=== PATIENT | male | born 1975 | race Caucasian/White ===

== ENCOUNTER 2022-02-06 14:06 | Outpatient (CLI) | payer OTHER, SELFPAY ==
--- OUTSIDE RECORDS SUMMARY | 2022-02-06 14:10 | XMS_ITS | Encounter Summary ---
:1975 Author Organization [facility] Address [address] [place] [address] Care Team Providers Name Role Phone Bethany Rahman MD Primary Care Provider Reason for Visit Reason Comments Med Refill Encounter Details Date Type Department Care Team Description 12/21/2020 Refill Viola Bethany Rahman MD [facility] [address] [facility] 20 [address] [facility] 20 [place], [place] [address] [place], [place] [phone] (Wo rk) Social History Tobacco Use Types Packs/Day Years Used Date Former Smoker Smokeless Tobacco: Never Used Alcohol Use Standard Drinks/Week Comments Yes 0 (1 standard drink = 0.6 oz pure alcoho l) 1-2 times per month Alcohol Habits Answer Date Recorded How often do you have a drink containing alcohol? Not asked How many drinks containing alcohol do you have on a Not aske d typical day when you are drinking? How often do you have six or more drinks on one Not asked occasion? 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
--- OUTSIDE RECORDS SUMMARY | 2022-02-06 14:10 | XMS_ITS | Encounter Summary ---
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 documented in this encounter Results SARS Coronavirus 2 RNA detection, v (04/12/2021 8:03 AM DIP DYER) [facility] Method Time Signature SARS Covid Nasopharyngeal 04/12/2021 [facility] specimen 10:40 PM LABORATORIES source DIP DYER SARS CoV2 Undetected Undetected 04/12/2021 [facility] RNA 10:40 PM LABORATORIES DIP DYER Comment: SARS-CoV-2 RNA absent. This result does not rule out COVID-19 in the patient, as the sensitiv ity of the test depends on the timing of the specimen co llection and the quality of the specimen. Result should b e correlated with patient's history and clinical presentat ion. Method - 04/12/2021 10:40 PM DIP DYER [facility] Comment: DOMINIK- This PCR test uses the dominik SARS -CoV-2 assay ([employer] and is perform ed on the dominik [employer]0 System. It has received Emergency U se Authorization (EUA) by the U.S. Food and Drug Administ ration. Performance characteristics were verified by [facility] inic in a manner consistent with CLIA requirements. Fact sheets for this Emergency Use Autho rization (EUA) can be found at the following links: https://www.fda.gov/media/615382/downloa d for Healthcare Providers https://www.fda.gov/media/809556/downloa d for Patients Test Performed by: [facility] [address] [place] [address] Tax Manager Cpa: Zen Sanchez M.D. Ph. D.; CLIA# [id number] Specimen Anatomical Collection Method Collection Time Receive d Time (Source) Location / / Volume Laterality Swab 04/12/2021 8:03 AM 8:03 (Nasopharyngeal) DIP DYER AM DIP DYER Nancy Carrion DNP, FOREIGN EXCHANGE SERVICES MANAGER, PLATE KEEPER LAB MOLECULAR DIAGNO STICS ORDERABLES Performing Organization Address City/State/ZIP Code Phon e Number [facility] see result attachment for specific address documented in this encounter Visit Diagnoses Diagnosis Encounter for screening laboratory testi ng for COVID-19 virus documented in this encounter Additional Health Concerns Infection Onset Date Last Indicated Resolved Time COVID-19 Rule Out 04/12/2021 04/12/2021 04/12/2021 10: 41 PM DIP DYER documented as of this encounter Care Teams Internet E Commerce Specialist Relationship Specialty Start Date End Date Bethany Rahman MD PCP - General 10/29/[address] [place] [address] documented as of this encounter
--- OUTSIDE RECORDS SUMMARY | 2022-02-06 14:10 | XMS_ITS | Encounter Summary ---
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
--- OUTSIDE RECORDS SUMMARY | 2022-02-06 14:10 | XMS_ITS | Clinical Summary ---
:1975 Author Organization [facility] Address [address] [place] [address] Care Team Providers Name Role Phone Bethany Rahman MD Primary Care Provider Allergies Active Allergy Reactions Severity Noted Date Comments Epinephrine Anxiety, Palpitations 12/31/2018 Methylprednisolone Dizziness Tramadol Dizziness 06/19/2006 Medications Medication Sig Dispensed Refills Start Date End Date Status cyclobenzaprine Take 10 mg by mouth 2 times daily 0 01/05/2016 Active (FLEXERIL) 10 MG Take 1 tab by mouth two time s daily as needed for muscle spasms. tablet ibuprofen Take 800 mg by 0 Activ e (ADVIL,MOTRIN) 200 MG mouth every 6 tablet (six) hours if needed for mild pain Take with food. atorvastatin TAKE 1 TABLET BY 90 tablet 3 03/21/2021 Active (LIPITOR) 20 MG MOUTH EVERY NIGHT tabletIndications: FOR CHOLESTEROL Mixed hyperlipidemia DULoxetine (CYMBALTA) Take one a day 90 capsule 3 03/22/[address] for capsuleIndications: anxiety/depressio Depression, n/pain unspecified depression type lisinopril (ZESTRIL) one pill daily 90 tablet 3 03/22/2021 Active 30 MG for blood tabletIndications: pressure Essential hypertension gabapentin May take ONE 180 capsule 3 08/28/2021 Act ron (NEURONTIN) 300 MG capsule TWICE a capsuleIndications: day or as Neuropathy directed for neropathy Active Problems Problem Noted Date Bilateral carpal tunnel syndrome 03/22/2021 MILLY (obstructive sleep apnea) 03/14/2020 Mixed hyperlipidemia 03/14/2020 Preoperative cardiovascular examination 05/29/2019 Overview: 1. 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 Will recommend ECG monitoring during the procedure and immediately post procedure. 2. Anesthesia can call me if problems or questions arise concerning the surgery. 3. Patient to be seen back on an as-need ed basis and to be seen if he wishes with me in the [facility]. 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 Immunizations Name Administration Dates Next Due H1N1 All Forms 04/16/2009 Tdap 08/28/2021, 07/16/2011 Family History Medical History Relation Comments Heart attack Father Heart attack Paternal Grandfather Liver disease Paternal Grandmother Relation Status Comments Daughter Alive Father Maternal Grandfather Maternal Grandmother Alive Mother Alive Paternal Grandfather Paternal Grandmother Sister 1 Alive Sister 2 Alive Son Alive Social History Tobacco Use Types Packs/Day Years [...] at Date 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 Vital Signs Vital Sign Reading Time Taken Comments Blood Pressure 116/72 08/28/2021 2:15 PM CDT Pulse 92 08/28/2021 2:15 PM CDT Temperature 37.1 ??C (98.7 ??F) 08/28/2021 2:15 PM CDT Respiratory Rate 16 08/28/2021 2:15 PM CDT Oxygen Saturation 96% 08/28/2021 2:15 PM CDT Inhaled Oxygen Concentration - - Weight 111 kg (245 lb 6.4 oz) 08/28/2021 2:15 PM CDT Height 177.8 cm (5' 10) 08/28/2021 2:15 PM CDT Body Mass Index 35.21 08/28/2021 2:15 PM CDT Plan of Treatment Health Maintenance Due Date Last Done Comments CT Colonography 1975 Colonoscopy 1975 Colorectal Cancer Screening 1975 FIT-DNA 1975 Sigmoidoscopy 1975 iFOBT 1975 COVID-19 Vaccine (#1) 1975 HPV Vaccines Aged Out No longer eligib le based on patient's age to complete this topic Pneumococcal Vaccine: Pediatrics (0 Aged Out No longer eligible based on to 5 Years) and At-Risk Patients (6 patient's age to complete to 64 Years) this topic Insurance Payer Benefit Plan / Subscriber ID Effective Phone Address T ype Group Dates [facility] [id number] 2017-Prese [address] [place] [address] Care Teams Rn Clinical Documentation Relationship Specialty Start Date End Date Bethany Rahman MD PCP - General 10/29/[address] [place] [address]
--- OUTSIDE RECORDS SUMMARY | 2022-02-06 14:10 | XMS_ITS | Encounter Summary ---
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 Last Filed Vital Signs Vital Sign Reading Time Taken Comments Blood Pressure 124/86 03/22/2021 11:13 AM CASE PACKER Pulse 106 03/22/2021 11:13 AM CASE PACKER Temperature 36.4 ??C (97.6 ??F) 03/22/2021 11:13 AM CASE PACKER Respiratory Rate 16 03/22/2021 11:13 AM CASE PACKER Oxygen Saturation 96% 03/22/2021 11:13 AM CASE PACKER Inhaled Oxygen Concentration - - Weight 113 kg (250 lb) 03/22/2021 11:13 AM CASE PACKER Height 177.2 cm (5' 9.76) 03/22/2021 11:13 AM CASE PACKER Body Mass Index 36.11 03/22/2021 11:13 AM CASE PACKER documented in this encounter Progress Notes Bethany Rahman MD - 03/22/2021 11:20 AM CST Estab Patient Visit Subjective Patient ID: Fabiano Schwartz is a 46 y.o. male. HPI the patient is here today for couple different reasons. URINARY DRIBBLING the patient is our 46-year-old individual who does not excessively use caffeine oralcohol at all. He has no problems getting up at night to urinate at all. During the daytime he may be will go to sometimes 3 times during the day but nothing more than that. He has no problems starting his stream he can stop his stream controlled quite well however he is beginning to notice he is having a little dribbling afterwards however if he squeezes the head of the penis and has a little patience post urinating he is better than if he does not pay attention to it. I told him at this point in time there are no particular medications are probably help with that continue doing what he is doing if he really needs toeing get some urinary sanitary pads to use if this gets to be a little more significant. If it does increase her creates a little bit of a problem referral to urology can always be done. HEMORRHOIDS the patient's had a history of external hemorrhoids he says for 5+ years if not longer. He has had on 2 occasions where they will protrude not much bigger than the size of a pea or 2 but they can sometimes bleed when he wipes himself or gets a little blood on the tissue paper or his underwear. Otherwise no change of bowel patterns and no blood in the stool per se just blood on the tissue paper or from the hemorrhoids. Sometimes it drips a little bit more. We did discuss colon cancer and presentation he certainly seems like he has external hemorrhoids butwe did discuss potentially getting a colonoscopy next year if this problem continues or persist or if he has insurance will allow him to initiate screening colonoscopies by age 45. BACK PAIN he recently had some problems with developing back pain when he reached for a 4 pound object at work. He Is actually been evaluated via Workmen's Comp. his symptoms were of acute low back pain with radiation of numbness and tingling down both legs into his feet. He is improved at this time he is starting physical therapy and Workmen's Comp. will not let him get an MRI scan unless he undergoes PT or if symptoms get worse. However he has a Workmen's Comp. provider that will have to work through this time. He has never had back surgery previously. BILATERAL CARPAL TUNNEL the patient's been experiencing some numbness in both hands may be left a little greater than right. His hands will fall asleep at nighttime oftentimes will have to wake and shake them. He is not dropping objects he does not feel like he has any weakness during the daytime theyare usually pretty much okay but he can experience some numbness or tingling periodically. Review of Systems Objective Physical Exam he is alert he appears comfortable his vital signs show the following Blood pressure 124/86 pulse 106 regular rate and rhythm temp 97.6 weight 250 pounds his BMI is 36.1 O2 sats 96% room air at rest He can turn his head left right up and down roll his shoulders through full range of motion without any particular problems or issues got full functional movement of the elbow wrist and fingers. However he does have a positive Phalen sign and a minimally positive Tinel's sign on the left wrist. Assessment/Plan Diagnoses and all orders for this visit: Depression, unspecified depression type - DULoxetine (CYMBALTA) [address] capsule; Take one a day for anxiety/depression/pain Neuropathy - gabapentin (NEURONTIN) 300 MG capsule; May take ONE capsule at night for pain/neuropathy or as directed Essential hypertension - lisinopril (ZESTRIL) 30 MG tablet; one pill daily for blood pressure BILATERAL CARPEL TUNNEL Urinary dribbling And the plan at this time is we recommend bilateral cock-up splints for his hands he will since he is going get those from a sports store. Would use them every night. If his carpal tunnel symptoms get worse he will let us know. His back will be taken care of by his Workmen's Comp. provider He has urinary dribbling he will just can keep in touch with us and let us know if is getting worse. 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
--- OUTSIDE RECORDS SUMMARY | 2022-02-06 14:10 | XMS_ITS | Encounter Summary ---
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 Patient instructed to remain home until: ??? Notified of results AND If symptomatic: ??? No fever for at least 24 hours (one full day without fever without the use of fever reducers AND ??? Other symptoms have improved Patient instructed that if they want to be seen by a provider for their symptoms, they can request atelehealth visit when calling to schedule. CLE ASSEMBLER documented in this encounter Plan of Treatment Not on filedocumented as of this encounter Results SARS Coronavirus 2 RNA detection, v (04/12/2021 8:03 AM VEHICLE ASSEMBLER) [facility] Method Time Signature SARS Covid Nasopharyngeal 04/12/2021 [facility] specimen 10:40 PM LABORATORIES source VEHICLE ASSEMBLER SARS CoV2 Undetected Undetected 04/12/2021 [facility] RNA 10:40 PM LABORATORIES VEHICLE ASSEMBLER Comment: SARS-CoV-2 RNA absent. This result does not rule out COVID-19 in the patient, as the sensitiv ity of the test depends on the timing of the specimen co llection and the quality of the specimen. Result should b e correlated with patient's history and clinical presentat ion. Method - 04/12/2021 10:40 PM VEHICLE ASSEMBLER [facility] Comment: DOMINIK- This PCR test uses the dominik SARS -CoV-2 assay ([employer].), and is perform ed on the dominik 6800 System. It has received Emergency U se Authorization (EUA) by the U.S. Food and Drug Administ ration. Performance characteristics were verified by [facility] inic in a manner consistent with CLIA requirements. Fact sheets for this Emergency Use Autho rization (EUA) can be found at the following links: https://www.fda.gov/media/434452/downloa d for Healthcare Providers https://www.fda.gov/media/035772/downloa d for Patients Test Performed by: [facility] [address] [place] [address] 44 Card Assembler: Zen Sanchez M.D. Ph. D.; CLIA# [id number] Specimen Anatomical Collection Method Collection Time Receive d Time (Source) Location / / Volume Laterality Swab 04/12/2021 8:03 AM 8:03 (Nasopharyngeal) VEHICLE ASSEMBLER AM VEHICLE ASSEMBLER Nancy Carrion DNP, PRECIPITATOR, CORRECTION OFFICER HEAD LAB MOLECULAR DIAGNO STICS ORDERABLES Performing Organization Address City/State/ZIP Code Phon e Number [facility] see result attachment for specific address documented in this encounter Visit Diagnoses Diagnosis Encounter for screening laboratory testi ng for COVID-19 virus - Primary documented in this encounter Care Teams Quality Control Industrial Engineer Relationship Specialty Start Date End Date Bethany Rahman MD PCP - General 10/29/[address] [place] [address] documented as of this encounter
--- OUTSIDE RECORDS SUMMARY | 2022-02-06 14:10 | XMS_ITS | Encounter Summary ---
:1975 Author Organization [facility] Address [address] [place] [address] Care Team Providers Name Role Phone Bethany Rahamn MD Primary Care Provider Reason for Visit Reason Comments Follow-up Discuss medication for neuro evan, lump on arm since Saturday-painful Encounter Details Date Type Department Care Team Description 08/28/2021 Office Visit Bethany Cline Neuropathy (Primary Dx); [address] MD Derrick Primary hypertension [place], [place] [address]269 [facility] 20 [place] [address] Social History Tobacco Use Types Packs/Day Years [...] at Date Recorded 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 male. HPI the patient is here today for review and treatment primarily of his chronic neuropathy. NEUROPATHY the patient has been having issues with bilateral numbness a little tingling that is relatively symmetric for several years. He is actually gotten by quite well with just a 300 mg dose of gabapentin at night. However more recently he feels that the some of this neuropathy has gotten a little bit more significant and he like to go up on the dose. It should also be noted he has some history of bilateral carpal tunnel seeming to be doing better orimproved and controlled with cock-up splints at night. Again overall his neuropathy is reasonably stable we are not going to investigate any further but wewill increase his treatments at this time and if this does not help or we have further issues further evaluation with referral to neurology could be considered. Some of his neuropathy might be related to his back issues. The neuropathy is primarily and some numbness little tingling of both feet more forefoot area than elsewhere but some going a little bit further than that. HYPERTENSION APPROXIMATELY 9 months or so ago we did increase his lisinopril from 20 mg to 30 mg. Hehas had no side effects to this increased dose and his blood pressure is much better controlled. WORKMEN'S COMP. BACK ISSUES the patient has a Workmen's Comp. issue with his lower back that he has been going through a different provider through his place of work for a period he has had an MRI scanthat is showed some bulging of the disc at the L4 level facet hypertrophy arthritic changes. Workmen's Comp. made him go through physical therapy conservative management for this and now he will be having a surgical procedure to cauterize his nerves. That will be coming up. I do not have anything todo with this as it is a work comp issue at this time. IMMUNIZATIONS he is up-to-date with his COVID-vaccine and we did update his tetanus status today. Review of Systems Objective Physical Exam he is alert he appears comfortable his vital signs show the following Blood pressure 116/72 pulse is 92 regular rate and rhythm temp is 98.7 his current weight is 245 pounds his BMI is 35.2 O2 sats 94% room air. Assessment/Plan Diagnoses and all orders for this visit: Neuropathy - gabapentin (NEURONTIN) 300 MG capsule; May take ONE capsule TWICE a day or as directed for neropathy Primary hypertension Other orders - Tdap vaccine greater than or equal to 7yo IM The overall assessment is as stated above and the plan at this time is increase his gabapentin to 300 mg twice a day recheck in roughly 6 months time when he will be due next for his general physical evaluation and laboratory testing. Consult time was 25 minutes greater than 90% of the time was spent in consultation regarding his ability issues he has neuropathy and upcoming workman comp procedure as well as review of his medications. documented in this encounter Plan of Treatment Not on filedocumented as of this encounter Visit Diagnoses Diagnosis Neuropathy - Primary Mononeuritis of unspecified site Primary hypertension Unspecified essential hypertension documented in this encounter Care Teams Analysis Consultant Relationship Specialty Start Date End Date Bethany Rahman MD PCP - General 10/29/[address] [place] [address] documented as of this encounter
--- OUTSIDE RECORDS SUMMARY | 2022-02-06 14:10 | XMS_ITS | Encounter Summary ---
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
--- OUTSIDE RECORDS SUMMARY | 2022-02-06 14:10 | XMS_ITS | Encounter Summary ---
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 DULoxetine (CYMBALTA) [address] capsule [Pharmacy Med Name: DULOXETINE DR 60MG CAPSULES] 90 capsule 3 Sig: TAKE 1 CAPSULE BY MOUTH EVERY DAY FOR ANXIETY OR DEPRESSION OR PAIN ??? atorvastatin (LIPITOR) 20 MG tablet [Pharmacy Med Name: ATORVASTATIN 20MG TABLETS] 90 tablet 1 Sig: TAKE 1 TABLET BY MOUTH EVERY NIGHT FOR CHOLESTEROL Labs: Component Latest Ref Rng & Units 07/25/2020 Cholesterol 0 - 199 mg/dL 167 Triglycerides 0 - 149 mg/dL 237 (H) HDL 40 - 250 mg/dL 35 (L) LDL Calculated 0 - 99 mg/dL 85 Fasting? No Vitals: BP Readings from Last 2 Encounters: 09/19/20 110/82 09/09/20 110/78 Please advise pharmacy on request. Thank you! RMATION WRITER documented in this encounter Plan of Treatment Not on filedocumented as of this encounter Visit Diagnoses Diagnosis Depression, unspecified depression type Mixed hyperlipidemia documented in this encounter Care Teams Psychology Lecturer Relationship Specialty Start Date End Date Bethany Rahman MD PCP - General 10/29/[address] [place] [address] documented as of this encounter
--- OUTSIDE RECORDS SUMMARY | 2022-02-06 14:10 | XMS_ITS | Encounter Summary ---
:1975 Author Organization [facility] Address [address] [place] [address] Care Team Providers Name Role Phone Unavailable Primary Care Provider Unavailable Reason for Visit Reason Comments Back Pain Encounter Details Date Type Department Care Team Description 01/05/2016 Hospital Encounter Do Domingo, Acute bilateral low Care MD back pain without [address] [facility] sciatica ([address] [place] Dx) [place] [address] [phone] Social History Tobacco Use Types Packs/Day Years Used Date Smoking Tobacco: Never Sex Assigned at Date Recorded Not on file documented as of this encounter Last Filed Vital Signs Vital Sign Reading Time Taken Comments Blood Pressure 125/90 01/05/2016 2:13 PM CDT Pulse 104 01/05/2016 2:13 PM CDT Temperature 36.7 ??C (98 ??F) 01/05/2016 2:13 PM CDT Respiratory Rate 17 01/05/2016 2:13 PM CDT Oxygen Saturation 98% 01/05/2016 2:13 PM CDT Inhaled Oxygen Concentration - - Weight - - Height - - Body Mass Index - - documented in this encounter Discharge Instructions Discharge InstructionsDo Youngblood - 01/05/2016 3:43 PM CDT Images from the original note were not included. Action Plan for Recovering from Low Back Pain Follow this action plan to achieve your goals for back pain recovery. Call 911 or go to the Emergency Center ?? Fever greater than 100.4??F (38??C) with back pain ?? Unable to urinate ?? Uncontrolled bowel movements ?? New weakness in both legs Call your doctor to discuss ?? Back pain that does not go away within 6 weeks or continues to worsen ?? Weight loss for no known reason ?? New weakness in 1 leg ?? Numbness that does not improve Phase 1 -- What to do for the 1st 2 weeks to reduce back pain ?Daily physical activity can prevent future back problems. ?? If you were not doing regular physical activity before your back pain started, aim to start walking for at least 30 minutes a day. ?? Spend at least 30 minutes daily in your usual exercise routine. If you usually exercise for more than 60 minutes a day, aim to exercise for 50 percent of that time. ?Visit www.nlm.nih.gov/medlineplus/backpain.html to learn more about back pain. ?Use any of the following medicines as recommended: ?? Nonsteroidal anti-imflammatory drugs (NSAIDs), such as ibuprofen (Motrin, Advil) or naproxen (Aleve) ?? Acetaminophen (Tylenol) ?? Other prescription medication as prescribed ?Use heat and consider ice ?? Take a hot bath (no greater than 100??F or 38??C) or place a heating pad on your lower back for 20 minutes 3 to 4 times a day. ?? Use of ice or cold packs for 20 minutes 3 to 4 times a day is optional. ?Move to Phase 2 when you no longer feel back pain 20 to 30 minutes after your daily physicalactivity. ?If your pain does not improve in 2 weeks, call either [facility] ([phone]), [facility] ([phone]) or [facility] ([phone]) toschedule an appointment. Phase 2 -- What to do after 2 weeks to reduce your back pain ?Daily physical activity. ?? If you were not doing regular physical activity before your back pain started, aim to start walking for at least 30 minutes a day. ?? Spend at least 45 to 60 minutes daily in your usual exercise routine. If you usually exercise formore than 60 minutes a day, aim to exercise for 75 to 100 percent of that time. ?Visit www.nlm.nih.gov/medlineplus/backpain.html to learn more about back pain. ?Use epcl-eil-tuzvihc acetaminophen (Tylenol) or ibuprofen (Motrin, Advil) as recommended. ?Use heat and consider ice ?? Take a hot bath (no greater than 100??F or 38??C) or place a heating pad on your lower back for 20 minutes 3 to 4 times a day. ?? Use of ice or cold packs for 20 minutes 3 to 4 times a day is optional. ?If you are still experiencing back pain after 6 weeks and have not called either [facility] ([phone]), [facility] ([phone]) or [facility] ([phone]), call now to schedule an appointment. [id number] (09/2013) documented in this encounter Medications at Time of Discharge Medication Sig Dispensed Refills Start Date End Date cyclobenzaprine (FLEXERIL) Take 1 Tab by mouth 20 Tab 0 01/05/2016 10 MG tablet two times daily as needed for Muscle Spasms. DULoxetine (CYMBALTA) 20 MG Take 20 mg by mouth 0 capsule daily. HYDROcodone-acetaminophen Take 1-2 Tabs by 20 Tab 0 12/23 (NORCO) 5-325 MG tablet mouth every 6 hours as needed for Pain. documented as of this encounter ED Notes Do Youngblood - 01/05/2016 3:46 PM CDT [facility] SUBJECTIVE: Fabiano Schwartz is a 40 y.o. male with history of known DJD of the low back who presents to urgent care for evaluation of acute back pain. He is in this area fore a judaism [place]. Was bending forward to lift up a heavy crate and immediately had pain in his bilateral low back. Denies weakness, numbness, saddle anesthesia, incontinence, fever, injury, trauma, or fall. No history of spine surgery. Has tried nothing OTC, just came here immediately. Past medical history: anxiety disorder NOS, WPW Medications: Cymbalta Allergies: NKDA Social: nonsmoker OBJECTIVE: BP 125/90 mmHg Pulse 104 Temp(Src) 36.7 ??C (98 ??F) (Oral) Resp 17 SpO2 98% GEN: NAD HEENT: NC/AT, EOMI, sclera white RESP: nonlabored MS: limited ROM with forward flexion and extension as well as lateral bending and rotational movement of back, +perispinous muscle tenderness bilateral low back, no SI joint tenderness, no midline tenderness, negative straight leg raise, BLE strength 5/5, DTR symmetric Skin: warm/dry, no rash, capillary refill <2sec ASSESSMENT AND PLAN: 1. Lumbar back strain Rx for Flexeril at bedtime and small amount [place] for pain during the day. Also recommended Aleve bid with food. Recommended heat and topical capsicin OTC. Handout on back stretches provided. If has acute worsening of symptoms will return for repeat evaluation. Otherwise, f/u with PCP in 1-2 weeks. Ifnot improved may consider PT and/or imaging if indicated. Patient is in agreement and understanding of the plan. Do Youngblood MD documented in this encounter Plan of Treatment Not on filedocumented as of this encounter Visit Diagnoses Diagnosis Acute bilateral low back pain without sc iatica - Primary Triage Assessment Note - Tessa Rodríguez RN - 01/05/2016 2:11 PM CDT Back pain started an hour ago, hard to walk, 10/01 documented in this encounter
--- OUTSIDE RECORDS SUMMARY | 2022-02-06 14:11 | XMS_ITS | Encounter Summary ---
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
--- OUTSIDE RECORDS SUMMARY | 2022-02-06 14:11 | XMS_ITS | Encounter Summary ---
:1975 Author Organization [facility] Address [address] [place] [address] Care Team Providers Name Role Phone Bethany Rahman MD Primary Care Provider Reason for Visit Reason Comments Hypertension Encounter Details Date Type Department Care Team Description 07/25/2020 Office Visit Bethany Cline Essential hypertension (Prim marcell Dx); [address] [facility] [address] MD Derrick Mixed hyperlipidemia [place], [place] [address] [facility] [address] [place] [address] [place] [address] Social History Tobacco Use Types Packs/Day Years [...] at Date 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 Last Filed Vital Signs Vital Sign Reading Time Taken Comments Blood Pressure 139/72 07/25/2020 4:15 PM CDT Pulse 92 07/25/2020 4:15 PM CDT Temperature 35.9 ??C (96.6 ??F) 07/25/2020 4:11 PM CDT Respiratory Rate 14 07/25/2020 4:11 PM CDT Oxygen Saturation 95% 07/25/2020 4:11 PM CDT Inhaled Oxygen Concentration - - Weight 113 kg (249 lb) 07/25/2020 4:11 PM CDT Height 177.2 cm (5' 9.76) 07/25/2020 4:11 PM CDT Body Mass Index 35.97 07/25/2020 4:11 PM CDT documented in this encounter Progress Notes Bethany Rahman MD - 07/25/2020 4:20 PM CDT Estab Patient Visit Subjective Patient ID: Fabiano Schwartz is a 45 y.o. male. HPI the patient is here today for review of blood pressure and to get an updated fasting lipid profile on him. Just in brief the patient was in the office the end of February for a preop physical prior to tonsillectomy done down at [facility]. The tonsillectomy procedure went well though it did takehim about 2 weeks to fully recover. He still feels a little sore when he really opens his mouth likethere may be a little scar tissue of sorts but overall he is quite pleased with having had his tonsillectomy he feels that he is sleeping better there is not as much discomfort coming from the tonsillar areas as previous. It should also be noted that approximately 6 years ago he did undergo a sleep study in the hospital at [facility]. It was borderline if I recall we did not start him on CPAP at that time and since that time he feels he is down maybe 15 pounds. That plus his recent surgical procedure to alleviate some of the tonsillar obstruction and the fact he is sleeping better we will hold off on doing any further sleep evaluation at least for now. He comes in because his blood pressure was elevated preoperatively we asked him to come back for another blood pressure check and to see how he is doing. Review of Systems Objective Physical Exam he is alert he appears comfortable his vital signs show a blood pressure 120/100 initially and on recheck it was 139/72 his pulse is 112 temp 96.6 current weight is 250 pounds his BMI is 36 O2 sat 95% at rest. Cardiac is regular rate and rhythm His lungs are clear without wheeze rales or rhonchi Extremities with no particular edema Patient has been fasting for 4+ hours we have not checked a cholesterol in the last year and a half since we started him on Lipitor as such we will get that today. Assessment/Plan Diagnoses and all orders for this visit: Essential hypertension - lisinopril (ZESTRIL) 30 MG tablet; one pill daily for blood pressure Mixed hyperlipidemia - Lipid panel; Future The overall assessment is essential hypertension currently on medication lisinopril 20 mg daily weregoing to increase that to 30 mg daily Get a lipid panel and make appropriate adjustments in medication as indicated. documented in this encounter Plan of Treatment Not on filedocumented as of this encounter Results (ABNORMAL) Lipid panel (07/25/2020 4:33 PM CDT) athologist Signature Cholesterol 167 0 - 199 07/26/2020 [facility] mg/dL 2:06 PM [facility] Comment: Recommended by National Cholesterol Education Program (ATP III) -------- Cholesterol Ranges -------- <200 ?Desirable 200-239 ? Borderline high >=240 ? High Triglycerides 237 (H) 0 - 149 mg/dL 07/26/2020 2:06 PM [facility] Comment: -------- TRIG Ranges -------- <150 ?Normal 150-199 ? Borderline high 200-499 ? High >=500 ? Very high HDL 35 (L) 40 - 250 mg/dL 07/26/2020 2:06 PM [facility] Comment: -------- HDL Ranges -------- <40 ?Low 40-59 ?Normal >=60 ? Optimal LDL Calculated 85 0 - 99 mg/dL 07/26/2020 2:06 PM [facility] Comment: -------- LDL Ranges -------- <100 ? Optimal 100-129 ?Near optimal/above op timal 130-159 ?Borderline high 160-189 ?High >=190 ?Very high Fasting? No 07/25/2020 4:[address] [facility] Comment: Last ate at noon. Provider ok with non f asting. Specimen Anatomical Collection Method Collection Time Receive d Time (Source) Location / / Volume Laterality Blood 07/25/2020 4:33 PM CDT 12:39 PM CDT Bethany Rahman MD LAB BLOOD ORDERABLES Performing Organization Address City/State/ZIP Code Phon e Number [facility] [address] [place] [address] documented in this encounter Visit Diagnoses Diagnosis Essential hypertension - Primary Unspecified essential hypertension Mixed hyperlipidemia documented in this encounter Care Teams Wallpaper Hanger Relationship Specialty Start Date End Date Bethany Rahman MD PCP - General 10/29/[address] [place] [address] documented as of this encounter
--- OUTSIDE RECORDS SUMMARY | 2022-02-06 14:11 | XMS_ITS | Encounter Summary ---
:[address] 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 DOS: 03/21/20 Tonsillectomy. Pt rates pain 10/01. Last doseof tylenol & ibuprofen 0200. Drinking plenty of fluids. Would like a refill on pain medications to get him through the next few days. Prefers to have tablets as he is swallowing tablets ok now. Please send to [facility] in [place]. DIALYSIS PATIENT CARE SPECIALIST documented in this encounter Plan of Treatment Not on filedocumented as of this encounter Visit Diagnoses Not on filedocumented in this encounter Care Teams Gate Clerk Relationship Specialty Start Date End Date Bethany Rahman MD PCP - General 10/29/[address] [place] [address] documented as of this encounter
--- OUTSIDE RECORDS SUMMARY | 2022-02-06 14:11 | XMS_ITS | Encounter Summary ---
:[address] 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 male. Chief Complaint Patient presents with ??? Return to work COVID note HPI Patient tested positive for COVID on 08/27/2020. Patient had symptoms started two days prior to this. His initial symptoms were headache, body aches, cough, runny nose. All of his symptoms have been improving. He does have persistent loss of smell and mild cough but that is also improving. He needs a letter to return to work and brought paper work. He does not plan on getting the Covid vaccine. The following portions of the patient's chart were reviewed in this encounter and updated as appropriate: Tobacco Allergies Meds Problems Med Hx Surg Hx Fam Hx ROS ROS done as noted in HPI Objective Visit Vitals BP 110/78 (BP Location: Left arm, Patient Position: Sitting, BP Cuff Size: Adult long) Pulse 110 Temp 36.1 ??C (97 ??F) (Temporal) Resp 18 Ht 1.772 m (5' 9.76) Wt 113 kg (249 lb) SpO2 96% BMI 35.97 kg/m?? Smoking Status Former Smoker BSA 2.36 m?? Physical Exam GEN: well appearing, no acute distress, vital signs reviewed CHEST: Lungs CTA karen CV: RRR no murmurs Assessment/Plan Diagnosis Plan 1. COVID-19 Patient cleared to return to work and form filled out. He meets criteria to return to work after covid (at least 1 day (24 hours) have passed since recovery, defined as resolution of fever without the use of fever-reducing medications and improvement in respiratory symptoms (e.g., cough, shortness of b reath); AND, at least 10 days have passed since symptoms first appeared. Return if symptoms worsen or fail to improve. Note created using voice dictation software. documented in this encounter Plan of Treatment Not on filedocumented as of this encounter Visit Diagnoses Diagnosis COVID-19 - Primary documented in this encounter Care Teams Timber Girdler Relationship Specialty Start Date End Date Bethany Rahman MD PCP - General 10/29/[address] [place] [address] documented as of this encounter
--- OUTSIDE RECORDS SUMMARY | 2022-02-06 14:11 | XMS_ITS | Encounter Summary ---
:1975 Author Organization [facility] Address [address] [place] [address] Care Team Providers Name Role Phone Bethany Rahman MD Primary Care Provider Reason for Visit Reason Comments Med Refill Encounter Details Date Type Department Care Team Description 12/28/2019 Refill [place] Bethany Rahman, Mixed hyperlipidemia; [address] [facility] Essential hypertension [place], [place] [address] [phone] [place] [address] (Wo rk) Social History Tobacco Use Types Packs/Day Years Used Date Former Smoker Smokeless Tobacco: Never Used Alcohol Use Standard Drinks/Week Comments Yes 0 (1 standard drink = 0.6 oz pure alcoho l) 3-4 times per year Alcohol Habits Answer Date Recorded How often do you have a drink containing alcohol? Not asked How many drinks containing alcohol do you have on a Not aske d typical day when you are drinking? How often do you have six or more drinks on one Not asked occasion? 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 Telephone Encounter - Sandrita Hamilton MA - 12/28/2019 8:14 AM CDT Last visit in provider department: 06/03/2019- pre-op Last visit requested medication was discussed: 11/28/2018 Upcoming appointment with provider: None Last Rx: 01/23/2019- LISINOPRIL 20MG-90 with 3 refills ATORVASTATIN 20MG- 90 with 3 refills Requested Prescriptions Pending Prescriptions Disp Refills ??? atorvastatin (LIPITOR) 20 MG tablet [Pharmacy Med Name: ATORVASTATIN 20MG TABLETS] 90 tablet 3 Sig: TAKE 1/2 TABLET BY MOUTH AT NIGHT FOR 10 DAYS THEN 1 TABLET BY MOUTH EVERY NIGHT THEREAFTER FOR CHOLESTEROL ??? lisinopril (ZESTRIL) 20 MG tablet [Pharmacy Med Name: LISINOPRIL 20MG TABLETS] 90 tablet 3 Sig: TAKE 1/2 TABLET BY MOUTH EVERY DAY FOR 10 DAYS THEN 1 TABLET BY MOUTH EVERY DAY Labs: Component Latest Ref Rng & Units 06/03/2019 Sodium 135 - 145 mmol/L 142 Potassium 3.5 - 5.1 mmol/L 3.9 Chloride 98 - 107 mmol/L 102 CO2 22 - 31 mmol/L 31 Creatinine 0.6 - 1.4 mg/dL 0.9 BUN 5 - 25 mg/dL 11 Glucose 70 - 100 mg/dL 96 Calcium, Total,S 8.4 - 10.2 mg/dL 9.4 Fasting? Yes Lipid panel is outdated Vitals: BP Readings from Last 2 Encounters: 06/03/19 128/82 05/29/19 127/84 Patient is due for an appointment. Advise your PSR/Nurse if you want them to assist patient with scheduling. Thank you! documented in this encounter Plan of Treatment Not on filedocumented as of this encounter Visit Diagnoses Diagnosis Mixed hyperlipidemia Essential hypertension Unspecified essential hypertension documented in this encounter Care Teams Resist Coater Developer Relationship Specialty Start Date End Date Bethany Rahman MD PCP - General 10/29/[address] [place] [address] documented as of this encounter
--- OUTSIDE RECORDS SUMMARY | 2022-02-06 14:11 | XMS_ITS | Encounter Summary ---
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 documented in this encounter Results (ABNORMAL) Lipid panel (07/25/2020 4:33 PM CDT) athologist Signature Cholesterol 167 0 - 199 07/26/2020 [facility] mg/dL 2:06 PM CDT [facility] Comment: Recommended by National Cholesterol Education Program (ATP III) -------- Cholesterol Ranges -------- <200 ?Desirable 200-239 ? Borderline high >=240 ? High Triglycerides 237 (H) 0 - 149 mg/dL 07/26/2020 2:06 PM CDT [facility] Comment: -------- TRIG Ranges -------- <150 ?Normal 150-199 ? Borderline high 200-499 ? High >=500 ? Very high HDL 35 (L) 40 - 250 mg/dL 07/26/2020 2:06 PM CDT [facility] Comment: -------- HDL Ranges -------- <40 ?Low 40-59 ?Normal >=60 ? Optimal LDL Calculated 85 0 - 99 mg/dL 07/26/2020 2:06 PM CDT [facility] Comment: -------- LDL Ranges -------- <100 ? Optimal 100-129 ?Near optimal/above op timal 130-159 ?Borderline high 160-189 ?High >=190 ?Very high Fasting? No 07/25/2020 4:38 PM CDT [facility] Comment: Last ate at noon. Provider ok with non f asting. Specimen Anatomical Collection Method Collection Time Receive d Time (Source) Location / / Volume Laterality Blood 07/25/2020 4:33 PM 1 CDT 12:39 PM CDT D. Derrick Rahman MD LAB BLOOD ORDERABLES Performing Organization Address City/State/ZIP Code Phon e Number [facility] [address] [place] [address] documented in this encounter Visit Diagnoses Diagnosis Mixed hyperlipidemia documented in this encounter Care Teams Addiction Treatment Counselor Relationship Specialty Start Date End Date Bethany Rahman MD PCP - General 10/29/[address] [place] [address] documented as of this encounter
--- OUTSIDE RECORDS SUMMARY | 2022-02-06 14:11 | XMS_ITS | Encounter Summary ---
:[address] 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
--- OUTSIDE RECORDS SUMMARY | 2022-02-06 14:11 | XMS_ITS | Encounter Summary ---
:1975 Author Organization [facility] Address [address] [place] [address] Care Team Providers Name Role Phone Bethany Rahman MD Primary Care Provider Reason for Visit Auth/Cert Specialty Diagnoses / Procedures Referred By Contact Refer red To Contact Diagnoses Hypertrophy of tonsils alone Hypertrophy of tonsils alone [J35.1] Procedures TONSILLECTOMY Referral ID Status Reason Start Date Expiration Date Visits Requ ested Visits Authorized [id number] 1 Encounter Details Date Type Department Care Team Description 03/21/2020 Anesthesia Event [facility] Operating Bigg Muse, Adrianne STEIN [address] [facility] [address] [place] [address] [place] [address] (Wo rk) Anesthesia Record Procedure Summary Procedure Name Responsible Anesthesia Start Anesthesia Stop Anesthesiologist Time Time TONSILLECTOMY Josué Muse MD 03/21/20 1613 03/21/20 17 08 (Bilateral ) Events Date Time Event Comment 03/21/2020 1509 1613 An Start 1613 An Start Data 1614 In Room 1617 An Induction The patient was reevaluated immediately before moderate or deep sedation use and before anesthesia induction. 1621 An Intubation 1625 Anesthesia Ready 1629 Proc Start 1645 Proc Fin 1654 An Extubation 1700 an stop data 1702 Out of Room 1707 Handoff to RN I completed my h andoff to the receiving nurse during which we: 1. Magen ntified the patient 2. Identified the responsible provider 3. Reviewed the pertinent medical history 4. Discussed the surgical course 5. Reviewed intra-o p anesthesia management and issues during anesthesi a 6. Set expectations for post-procedure p eriod 7. Allowed opportunity for questions and ac knowledgement of understanding. 170 An Stop Name Total fentaNYL (SUBLIMAZE) injection 150 mcg propofol (DIPRIVAN) injection 10 mg/mL 250 mg rocuronium 30 mg ondansetron 2 mg/mL 4 mg dexamethasone (DECADRON) injection 4 mg/mL 8 mg lidocaine injection 2% (5 ml) 40 mg esmolol (BREVIBLOC) injection 60 mg sugammadex (BRIDION) injection 400 mg lactated Ringer's infusion 1,200 mL Agents Name N2O % Minute Volume Sevoflurane FiO2 Inspired Sevoflurane Blood No blood administrations on file. Lines, Drains, and Airways Type Details Placement Removal Incision/Surgical Site 03/21/20; 163; N; Mouth; 03/21/20 1636 b y no dressing Hannah Patino RN Peripheral IV Placement Date: 03/21/20; 03/21/20 1421 by 03/21 1842 by Placement Time: 142; Krista Snyder, Miranda Sparks, Catheter Size: 20 G; RN RN Orientation: Left; Location: Wrist; Site Prep: Chlorhexidine ; Inserted by: DEE Arellano; Insertion Attempts: 1; Patient Tolerance: Tolerated well; Removal Date: 03/21/20; Removal Time: 1841; Removal Reason: Per order ETT Placement Date: 03/21/20; 03/21/201626 by 03/21 1654 by Placement Time: 1626 Miranda Johnson APRN, Miranda Johnson, (created via procedure LISA LEE APRN documentation); Mask Ventilation: 1; Technique: Video laryngoscopy; Type: ETT - single; Single Lumen Tube Size: 7.5 mm; Cuffed: Yes; Laryngoscope: Cleo; Blade Size: 3; Grade View: Grade I; Insertion Attempts: 1; Placement Verification: Auscultation; Removal Date: 03/21/20; Removal Time: 1653 documented in this encounter Social History Tobacco Use Types Packs/Day Years [...] at Date 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 OR Notes Anesthesia Postprocedure Evaluation - John Cunha MD - 03/21/2020 9:01 PM ELECTRICAL SYSTEMS DESIGNER Patient: Fabiano Schwartz Procedure Summary Date: 03/21/20 Room / Location: [facility] [place] [address] [place] [address] Operating Room Anesthesia Start: 1613 Anesthesia Stop: 170 Procedure: TONSILLECTOMY (Bilateral ) Diagnosis: Hypertrophy of tonsils alone (Hypertrophy of tonsils alone [J35.1]) Surgeon: Scott Lott MD Responsible Provider: Josué Muse MD Anesthesia Type: general ASA Status: 3 Anesthesia Type: general Last vitals Vitals Value Taken Time BP 144/91 03/21/20 1837 Temp 37.7 ??C (99.9 ??F) 03/21/20 1738 Pulse 91 03/21/20 1837 Resp 20 03/21/20 1738 SpO2 97 % 03/21/20 1837 There were no known complications for this encounter. Anesthesia Post Evaluation Patient location during evaluation: bedside (210) Patient participation: complete - patient participated Level of consciousness: awake and alert Pain management: adequate Airway patency: patent Cardiovascular status: acceptable Respiratory status: acceptable, nonlabored ventilation, spontaneous ventilation and room air Hydration status: acceptable Comments: Did well No anesthetic complications Nausea and vomiting control satisfactory TRICAL SYSTEMS DESIGNER Anesthesia Procedure Notes - Miranda Johnson APRN, CRNA - 03/21/2020 4:26 PM ELECTRICAL SYSTEMS DESIGNER Associated Order(s): Airway Airway Urgency: elective General Information and Staff Patient location during procedure: OR Resident/HUMANITIES INSTRUCTOR: Miranda Johnson APRN, HUMANITIES INSTRUCTOR Performed: resident/HUMANITIES INSTRUCTOR Indications and Patient Condition Indications for airway management: anesthesia Spontaneous Ventilation: absent Sedation level: deep Preoxygenated: yes Mask difficulty assessment: 1 - vent by mask Final Airway Details Final airway type: endotracheal airway Successful airway: ETT Cuffed: yes Successful intubation technique: video laryngoscopy Blade: Cleo Blade size: #3 ETT size (mm): 7.5 Cormack-Lehane Classification: grade I - full view of glottis Placement verified by: chest auscultation Cuff volume (mL): 8 Measured from: gums Number of attempts at approach: 1 TRICAL SYSTEMS DESIGNER Anesthesia Preprocedure Evaluation - Josué Muse MD - 03/21/2020 1:58 PM CST Images from the original note were not included. Anesthesia Adult ROS/MED Evaluation Patient denies history of problems with anesthesia. Patient denies family history of problems with anesthesia. 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 Please see cardiology evaluation 05/29/2019 with documentation of reassuring electrophysiologic cardiac testing around the time of this diagnosis and no concerns earlier this year per Dr. Stovall's evaluation. Recurrent tonsillitis MILLY - per patient, mild-restless sleep, states CPAP was not recommended (tonsillectomy recommended) Clinical information reviewed: Allergies Meds Visit Vitals BP (!) 165/95 (BP Location: Left arm, Patient Position: Sitting) Pulse (!) 120 Temp 37.6 ??C (99.7 ??F) (Temporal) Resp 16 Ht 1.772 m (5' 9.75) Wt 111 kg (244 lb 7.8 oz) SpO2 94% BMI 35.33 kg/m?? Smoking Status Former Smoker BSA 2.34 m?? Physical Exam Airway Mallampati: III TM distance: >3 FB Comments: MP3-2 Cardiovascular Rhythm: regular Rate: abnormal Dental Pulmonary Breath sounds clear to auscultation Abdominal Comments: Not examined Anesthesia Plan ASA 3 general (Risks discussed include, not limited to: Postoperative nausea and vomiting Trouble with heart or lungs, stroke, TIA Patient states the anesthetic consent form has been reviewed. We also discussed anesthetic risks andall questions were answered. The patient then signed the electronic consent. ) intravenous induction Anesthetic plan and risks discussed with patient. Plan discussed with HUMANITIES INSTRUCTOR. Initial evaluation reviewed, no significant interval change. Re-evaluation prior to induction complete. TRICAL SYSTEMS DESIGNER documented in this encounter Plan of Treatment Not on filedocumented as of this encounter Procedures Procedure Name Priority Date/Time Associated Comments Diagnosis DE AN ELECTIVE Routine 03/21/2020 4:26 PM Results for this ENDOTRACHEAL AIRWAY ELECTRICAL SYSTEMS DESIGNER procedur e are in the results section. documented in this encounter Results DE AN ELECTIVE ENDOTRACHEAL AIRWAY (03/21/2020 4:26 PM ELECTRICAL SYSTEMS DESIGNER) Narrative Miranda Johnson APRN, CRNA - 03/21/2020 4:26 PM ELECTRICAL SYSTEMS DESIGNER Miranda Johnson APRN, CRNA ? 03/21/2020 ??4:27 PM Airway Urgency: elective General Information and Staff Patient location during procedure: OR Resident/HUMANITIES INSTRUCTOR: Miranda Johnson APRN, CRNA Performed: resident/HUMANITIES INSTRUCTOR Indications and Patient Condition Indications for airway management: anest hesia Spontaneous Ventilation: absent Sedation level: deep Preoxygenated: yes Mask difficulty assessment: 1 - vent by mask Final Airway Details Final airway type: endotracheal airway Successful airway: ETT Cuffed: yes Successful intubation technique: video l aryngoscopy Blade: Cleo Blade size: #3 ETT size (mm): 7.5 Cormack-Lehane Classification: grade I - full view of glottis Placement verified by: chest auscultatio n Cuff volume (mL): 8 Measured from: gumava Number of attempts at approach: 1 Josué Muse MD ANESTHESIA ORDERABLES documented in this encounter Visit Diagnoses Not on filedocumented in this encounter Administered Medications Inactive Administered Medications - up to 3 most recent administrations Medication Order MAR Action Action Date Dose Rate Site dexamethasone (DECADRON) injection Given 03/21/2020 4:21 PM ELECTRICAL SYSTEMS DESIGNER 8 mg Intravenous, As needed, Starting on Sat03/21/20 at 1621, Anesthesia Intraprocedure esmolol (BREVIBLOC) injection Given 03/21/2020 4:37 PM ELECTRICAL SYSTEMS DESIGNER 20 mg Intravenous, As needed, Starting on Sat03/21/20 at 1622, Anesthesia Intraprocedure Given 03/21/2020 4:22 PM ELECTRICAL SYSTEMS DESIGNER 40 mg fentaNYL (SUBLIMAZE) injection Given 03/21/2020 4:33 PM ELECTRICAL SYSTEMS DESIGNER 50 mcg Intravenous, As needed, Starting on Sat03/21/20 at 1618, Anesthesia Intraprocedure Given 03/21/2020 4:29 PM ELECTRICAL SYSTEMS DESIGNER 50 mcg Given 03/21/2020 4:18 PM ELECTRICAL SYSTEMS DESIGNER 50 mcg lactated Ringer's infusion New Bag 03/21/2020 4:41 PM ELECTRICAL SYSTEMS DESIGNER 75 mL/hr, Intravenous, Continuous, Starting on Sat03/21/20 at 1430, For 5 days, Preprocedure Continued from Pre 03/21/2020 4:14 PM ELECTRICAL SYSTEMS DESIGNER New Bag 03/21/2020 2:22 PM ELECTRICAL SYSTEMS DESIGNER 75 mL/hr 75 mL/hr Lidocaine HCl (Cardiac) PF injection Given 03/21/2020 4:18 PM ELECTRICAL SYSTEMS DESIGNER 40 mg Intravenous, As needed, Starting on Sat03/21/20 at 1618, Anesthesia Intraprocedure ondansetron (ZOFRAN) injection Given 03/21/2020 4:31 PM ELECTRICAL SYSTEMS DESIGNER 4 mg Intravenous, As needed, Starting on Sat03/21/20 at 1631, Anesthesia Intraprocedure propofol (DIPRIVAN) injection Given 03/21/2020 4:38 PM ELECTRICAL SYSTEMS DESIGNER 50 mg Intravenous, As needed, Starting on Sat03/21/20 at 1618, Anesthesia Intraprocedure Given 03/21/2020 4:18 PM ELECTRICAL SYSTEMS DESIGNER 200 mg rocuronium (ZEMURON) injection Given 03/21/2020 4:18 PM ELECTRICAL SYSTEMS DESIGNER 30 mg Intravenous, As needed, Starting on Sat03/21/20 at 1618, Anesthesia Intraprocedure sugammadex (BRIDION) 500 MG/5ML injectio n Given 03/21/2020 4:43 PM ELECTRICAL SYSTEMS DESIGNER 400 mg As needed, Starting on Sat03/21/20 at 1643, Anesthesia Intraprocedure documented in this encounter Care Teams [employer] Caretaker Relationship Specialty Start Date End Date Bethany Rahman MD PCP - General 10/29/[address] [place] [address] documented as of this encounter
--- OUTSIDE RECORDS SUMMARY | 2022-02-06 14:11 | XMS_ITS | Encounter Summary ---
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 TRUCK DRIVER Telephone Encounter - Bethany Rahman MD - 04/25/2020 4:47 PM CST Rx filled. TRUCK DRIVER Telephone Encounter - Elida Flynn RN - 04/25/2020 4:28 PM CST Please review request. TRUCK DRIVER Telephone Encounter - Paula Bañuelos - 04/25/2020 4:24 PM CST Patient is requesting a [facility] of Cymb[facility] [place]. You can reach him at [phone]. TRUCK DRIVER documented in this encounter Plan of Treatment Not on filedocumented as of this encounter Visit Diagnoses Diagnosis Depression, unspecified depression type documented in this encounter Care Teams Wreath And Garland Maker Relationship Specialty Start Date End Date Bethany Rahman MD PCP - General 10/29/[address] [place] [address] documented as of this encounter
--- OUTSIDE RECORDS SUMMARY | 2022-02-06 14:11 | XMS_ITS | Encounter Summary ---
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 Dexamethasone script already at pharmacy, pain med script and needs to be resent. ING SPECIALIST documented in this encounter Plan of Treatment Not on filedocumented as of this encounter Visit Diagnoses Diagnosis Hypertrophy of tonsils alone - Primary documented in this encounter Additional Health Concerns Infection Onset Date Last Indicated Resolved Time COVID-19 Rule Out 04/12/2021 04/12/2021 04/12/2021 10: 41 PM TOOLING SPECIALIST documented as of this encounter Care Teams Vp Software Support Relationship Specialty Start Date End Date Bethany Rahman MD PCP - General 10/29/[address] [place] [address] documented as of this encounter
--- OUTSIDE RECORDS SUMMARY | 2022-02-06 14:11 | XMS_ITS | Encounter Summary ---
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 Order placed. We understand your concern regarding COVID-19 (Coronavirus). The recommendation is to wash your hands often with soap and water for at least 20 seconds, if soap and water are unavailable, please use alcohol-based hand inspector fabric. Cover your coughs and sneezes with a tissue or your sleeve, not in your hands. Avoid touching your eyes, nose, and mouth as well as coming in contact with people who are sick. If you are ill, please stay home from school, work, and activities. If you are ill and you need to go out into public, please wear a mask, if you have one available. Telephone Encounter - Do Danita - 12/30/2019 1:08 PM CDT Pt called asking if he can get the Covid antibody test. Please call Pt at [phone] to advise. documented in this encounter Plan of Treatment Not on filedocumented as of this encounter Results [id number] IgG (12/30/2019 3:03 PM CDT) [facility] Method Time Signature Anti-SARS NON-REACTI Non-Reacti 12/31/2019 [facility] CoV-2 IgG VE ve 2:38 PM CDT [facility] Comment: No SARS-CoV-2 IgG antibodies detected. Non-reactive results may occur in serum collected too soon following infection or in immunosuppressed patient s. This test should not be used to exclude active/recent COVID-19 infection . The results from this or any other diagn ostic test should only be interpreted in conjunction with clinical findings, and the results from other laboratory tests and evaluations. Heterophilic antibodies in serum or plas ma samples may cause interference in immunoassays. ??Exposure to animal antig ens, either in the environment or as part of treatment or imaging procedures, may have circulating anti-animal antibodies present. These antibodies may interfere with the assay reagents to produce unreliable results. ??Results which are inconsistent with clinical observations indicate the need for addit ional testing. Testing was performed using [employer] Lswn-YFCT-ZoD-2 IgG Reagent Pac k assay which has received Emergency Use Authorization (EUA) by the U.S. Food and Drug Administration. Fact sheets for this Emergency Use Autho rization can be found at the following links: For Healthcare Providers: https://www.fda.gov/media/277073/downlo ad For Patients: https://www.fda.gov/media/481965/downlo ad Specimen Anatomical Collection Method Collection Time Receive d Time (Source) Location / / Volume Laterality Blood (Blood, 12/30/2019 3:03 PM 12/31/19 20 Venous) CDT 12:49 PM CDT Bethany Rahman MD LAB BLOOD ORDERABLES Performing Organization Address City/State/ZIP Code Phon e Number [facility] [address] [place] [id number] documented in this encounter Visit Diagnoses Diagnosis Immunity status testing - Primary Antibody response examination documented in this encounter Care Teams General Magistrate Relationship Specialty Start Date End Date Bethany Rahman MD PCP - General 10/29/[address] [place] [address] documented as of this encounter
--- OUTSIDE RECORDS SUMMARY | 2022-02-06 14:11 | XMS_ITS | Encounter Summary ---
:1975 Author Organization [facility] Address [address] [place] [address] Care Team Providers Name Role Phone Bethany Rahman MD Primary Care Provider Reason for Visit Reason Comments Pre-op Exam DOS: 03/21/20, [facility] needs lab s Encounter Details Date Type Department Care Team Description 03/14/2020 Consult Bethany Cline, Preop examination (Primary D x); [address] [facility] MD Neuropathy [place], [place] [address] [phone] [place] [address] Social History Tobacco Use Types Packs/Day Years [...] at Date Recorded 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 as of this encounter Last Filed Vital Signs Vital Sign Reading Time Taken Comments Blood Pressure 122/88 03/14/2020 2:57 PM CELL MANAGER Pulse 100 03/14/2020 2:57 PM CELL MANAGER Temperature 36.2 ??C (97.1 ??F) 03/14/2020 2:57 PM CELL MANAGER Respiratory Rate 16 03/14/2020 2:57 PM CELL MANAGER Oxygen Saturation 96% 03/14/2020 2:57 PM CELL MANAGER Inhaled Oxygen Concentration - - Weight 115 kg (254 lb) 03/14/2020 2:57 PM CELL MANAGER Height 179.3 cm (5' 10.59) 03/14/2020 2:57 PM CELL MANAGER Body Mass Index 35.84 03/14/2020 2:57 PM CELL MANAGER documented in this encounter Progress Notes Bethany Rahman MD - 03/14/2020 4:00 PM CST Estab - Pre-Op History and Physical Subjective Patient ID: Fabiano Schwartz is a 45 y.o. male. HPI the patient is here today for PREOPERATIVE EVALUTION prior to elective surgical procedure tonsillectomy that is to be done on March 21, 2020. The surgeon's name is Dr. Lott and the procedure will be done at [facility]. The pertinent history in regard to this procedure is that the patient has had significant issues with chronic recurrent tonsillar infections that has resulted in pain and discomfort as well has a encrypted tonsillar tissue. He had been previously scheduled for a tonsillectomy in May of this year butbecause of COVID-19 it was finally rescheduled at this time. He also has a history of a positive sleep apnea test but some of that may be due to the enlarged tonsils as such this surgical procedure maydecrease some of his symptoms such as snoring. 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 He has had a previous full evaluation from Dr. Sia Esquivel's engine repairer with an EKG a year ago showing normal sinus rhythm no evidence for Sihwl-Axplsumvs-Fxedq in his current EKG today showing normal sinus rhythm and no evidence for Vczej-Xyxqgnlqe-Qecfu. 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 FAMILY HISTORY his father when he was age 7 from acute myocardial infarction his father was a heavy smoker. His mother is still living about age 61 without health issues 2 sisters living and well IMMUNIZATIONS up-to-date with tetanus shot declines flu vaccination Review of Systems the patient's current review of systems is apparently negative for anything specific at this time No headaches visual change or hearing changes No fevers chills night sweats coughs or colds no shortness of breath or chest pains or palpitations No recent weight changes no swallowing difficulties no stomach upset no constipation no nausea no vomiting no diarrhea no constipation no blood in the stool No difficulty passing of urine no frequency of urination or nocturia No unusual aches and pains no lumps or bumps no fluid retention no skin lesions No history of problems with anesthesia No gait or balance problems Objective Physical Exam he is alert he appears comfortable his vital signs show the following Blood pressure 122/88 Pulse 100 regular rate and rhythm Temp 97.1 Weight 254 pounds O2 sats 96% room air BMI is 35.8 Ears are clear except for cerumen in the left ear Pupils equal reactive conjunctiva clear Throat tongue is moist large tongue tonsils enlarged and encrypted Neck no adenopathy no thyromegaly no carotid bruits or lymphadenopathy Lungs are clear without wheeze rales or rhonchi Cardiac is regular rate and rhythm without heart murmur Abdomen soft nontender no hepatosplenomegaly no masses no hernias appreciated Extremities have no edema Skin is intact Gait and balance are normal A CBC chemistry 8 panel were done and were normal EKG was done normal sinus rhythm no acute changes no findings no delta wave Assessment/Plan Diagnoses and all orders for this visit: Preop examination - Basic metabolic panel; Future - ECG 12 lead; Future Neuropathy - gabapentin (NEURONTIN) 300 MG capsule; May take ONE capsule at night for pain/neuropathy or as directed The overall assessment is preoperative evaluation prior to elective tonsillectomy procedure. Other medical history is recorded in the body of this chart The patient qualifies and is given CLEARANCE to have his surgical procedure done under general anesthesia. After he recovers from his tonsillectomy we will discuss with the patient referring to sleep medicine specialist for evaluation of possible sleep apnea. MANAGER documented in this encounter Plan of Treatment Not on filedocumented as of this encounter Procedures Procedure Name Priority Date/Time Associated Diagnosis Comme nts ECG 12-LEAD Routine 03/14/2020 4:25 PM Preop examination Resu lts for this CELL MANAGER procedure are i n the results section . documented in this encounter Results ECG 12 lead (03/14/2020 4:25 PM CELL MANAGER) Specimen (Source) Anatomical Collection Method Collection Time Re ceived Time Location / / Volume Laterality 03/14/2020 4:25 PM CELL MANAGER Narrative 03/14/2020 12:00 AM CELL MANAGER This result has an attachment that is no t available. Patient had an EKG done in clinic. Patie nt tolerated well. Paper copy handed to Dr. Rahman for review. Paper copy scanned. Bethany Rahman MD ECG ORDERABLES Basic metabolic panel (03/14/2020 4:07 PM CELL MANAGER) P athologist Signature Sodium 142 135 - 145 03/14/2020 [facility] [place] mmol/L 4:51 PM CELL MANAGER [place] Potassium 3.9 3.5 - 5.1 03/14/2020 [facility] [place] mmol/L 4:51 PM CELL MANAGER [place] Comment: . Chloride 101 98 - 107 mmol/L 03/14/2020 4:51 PM CELL MANAGER [facility] [place] Comment: . CO2 31 22 - 31 mmol/L 03/14/2020 4:51 PM CELL MANAGER [facility] Comment: . Creatinine 0.9 0.6 - 1.4 mg/dL 03/14/2020 4:51 PM CELL MANAGER [facility] [place] Comment: . BUN 12 5 - 25 mg/dL 03/14/2020 4:51 PM CELL MANAGER [facility] [place] Comment: . Glucose 95 70 - 100 mg/dL 03/14/2020 4:51 PM CELL MANAGER [facility] [place] Calcium, Total,S 9.3 8.4 - 10.2 mg/dL 03/14/2020 4:51 PM CELL MANAGER [facility] [place] Comment: . Fasting? No 03/14/2020 4:31 PM CELL MANAGER [facility] CAN NON [place] Comment: 1+ lipemic Specimen Anatomical Collection Method Collection Time Receive d Time (Source) Location / / Volume Laterality Blood 03/14/2020 4:07 PM 0 4:31 CELL MANAGER PM CELL MANAGER D. Derrick Rahman MD LAB BLOOD ORDERABLES Performing Organization Address City/State/ZIP Code Phon e Number [facility] [place] [address] [place] [address] documented in this encounter Visit Diagnoses Diagnosis Preop examination - Primary Unspecified pre-operative examination Neuropathy Mononeuritis of unspecified site documented in this encounter Care Teams Expedition Supervisor Relationship Specialty Start Date End Date Bethany Rahman MD PCP - General 10/29/[address] [place] [address] documented as of this encounter
--- OUTSIDE RECORDS SUMMARY | 2022-02-06 14:11 | XMS_ITS | Encounter Summary ---
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
--- OUTSIDE RECORDS SUMMARY | 2022-02-06 14:11 | XMS_ITS | Encounter Summary ---
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
--- OUTSIDE RECORDS SUMMARY | 2022-02-06 14:11 | XMS_ITS | Encounter Summary ---
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 atorvastatin (LIPITOR) 20 MG tablet [Pharmacy Med Name: ATORVASTATIN 20MG TABLETS] 90 tablet 1 Sig: TAKE 1 TABLET BY MOUTH EVERY NIGHT FOR CHOLESTEROL ??? lisinopril (ZESTRIL) 20 MG tablet [Pharmacy Med Name: LISINOPRIL 20MG TABLETS] 90 tablet 2 Sig: TAKE 1 TABLET BY MOUTH DAILY FOR BLOOD PRESSURE documented in this encounter Plan of Treatment Not on filedocumented as of this encounter Visit Diagnoses Diagnosis Mixed hyperlipidemia Essential hypertension Unspecified essential hypertension documented in this encounter Additional Health Concerns Infection Onset Date Last Indicated Resolved Time COVID-19 Rule Out 04/12/2021 04/12/2021 04/12/2021 10: 41 PM VENEER STAPLER documented as of this encounter Care Teams Refrigerating Engineer Relationship Specialty Start Date End Date Bethany Rahman MD PCP - General 10/29/[address] [place] [address] documented as of this encounter
--- OUTSIDE RECORDS SUMMARY | 2022-02-06 14:11 | XMS_ITS | Encounter Summary ---
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 documented as of this encounter Plan of Treatment Not on filedocumented as of this encounter Results CBC ([facility]) (12/30/2019 3:03 PM CDT) P athologist Signature WBC 7.7 3.5 - 10.5 12/30/2019 [facility] DONNE[place] K/uL 4:18 PM CDT FALLS RBC 5.16 4.30 - 5.70 12/30/2019 [facility] [place] M/uL 4:18 PM CDT FALL[place] Hemoglobin 15.6 13.5 - 17.5 12/30/2019 [facility] [place] g/dL 4:18 PM CDT [place]ALL[place] Hematocrit 46.8 38.0 - 50.0 12/30/2019 [facility] [place] % 4:18 PM CDT [place] Platelets 316 150 - 450 12/30/2019 [facility] [place] K/uL 4:18 PM CDT [place] MCV 90.7 81.2 - 95.1 12/30/2019 [facility] [place] fL 4:18 PM CDT [place] MCH 30.2 26.0 - 32.0 12/30/2019 [facility] [place] pg 4:18 PM CDT [place] MCHC 33.3 32.0 - 36.0 12/30/2019 [facility] [place] g/dL 4:18 PM CDT [place] RDW 13.1 11.8 - 15.6 12/30/2019 [facility] [place] % 4:18 PM CDT [place] Specimen Anatomical Collection Method Collection Time Receive d Time (Source) Location / / Volume Laterality Blood (Blood, 12/30/2019 3:03 PM 12/30/19 3:04 Venous) CDT PM CDT Scott Lott MD LAB BLOOD ORDERABLES Performing Organization Address City/State/ZIP Code Phon e Number [facility] [place] [address] [place] [address] documented in this encounter Visit Diagnoses Diagnosis Hypertrophy of tonsils alone - Primary documented in this encounter Care Teams Metal Cans Supervisor Relationship Specialty Start Date End Date Bethany Rahman MD PCP - General 10/29/[address] [place] [address] documented as of this encounter
--- OUTSIDE RECORDS SUMMARY | 2022-02-06 14:11 | XMS_ITS | Encounter Summary ---
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 Please place a case request. Pt had been scheduled for May 2019. Canceled due to covid. Preop nurses please please review the History of Ezio Parkinson White Syndrome. documented in this encounter Plan of Treatment Not on filedocumented as of this encounter Visit Diagnoses Not on filedocumented in this encounter Care Teams Silvering Department Supervisor Relationship Specialty Start Date End Date Bethany Rahman MD PCP - General 10/29/[address] [place] [address] documented as of this encounter
--- OUTSIDE RECORDS SUMMARY | 2022-02-06 14:11 | XMS_ITS | Encounter Summary ---
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 OMER SUPPORT TECHNICIAN documented in this encounter Plan of Treatment Not on filedocumented as of this encounter Visit Diagnoses Diagnosis Hypertrophy of tonsils alone - Primary documented in this encounter Care Teams Masticator Relationship Specialty Start Date End Date Bethany Rahman MD PCP - General 10/29/[address] [place] [address] documented as of this encounter
--- OUTSIDE RECORDS SUMMARY | 2022-02-06 14:11 | XMS_ITS | Encounter Summary ---
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 Telephone Encounter - Do Samayoa - 07/22/2020 4:43 PM CDT Pt returned call to clinic. Telephone Encounter - Dana Lr MA - 07/22/2020 3:35 PM CDT Registry Management Fabiano has been identified with gaps in care for the following registry/registries: Hypertension Registry BP Readings from Last 1 Encounters: 03/21/20 (!) 144/91 Health Maintenance Topics with due status: Overdue Topic Date Due COVID-19 Vaccine Never done Referrals: ??? None Plan: ??? Patient advised to schedule appointment with PCP LMTCB documented in this encounter Plan of Treatment Not on filedocumented as of this encounter Visit Diagnoses Not on filedocumented in this encounter Care Teams Carbon Paper Coating Supervisor Relationship Specialty Start Date End Date Bethany Rahman MD PCP - General 10/29/[address] [place] [address] documented as of this encounter
--- OUTSIDE RECORDS SUMMARY | 2022-02-06 14:11 | XMS_ITS | Encounter Summary ---
:[address] [facility] Address [address] [place] [address] Care Team Providers Name Role Phone Bethany Rahman MD Primary Care Provider Reason for Visit Auth/Cert Specialty Diagnoses / Procedures Referred By Contact Refer red To Contact Diagnoses Hypertrophy of tonsils alone Hypertrophy of tonsils alone [J35.1] Procedures TONSILLECTOMY Referral ID Status Reason Start Date Expiration Date Visits Requ ested Visits Authorized [id number] 1 1 Encounter Details Date Type Department Care Team Description 03/21/[address] [facility] Operati ng Room Scott Thurston MD TONSILLECTOMY [address] [place], [place] [id number] Surgery Details Date/Time Status Location OR Service Patient Class Case Case Trauma Class Type Case? 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 encounter Last Filed Vital Signs Vital Sign Reading Time Taken Comments Blood Pressure 165/95 03/21/2020 2:02 PM GRINDER AND PLATER Pulse 120 03/21/2020 2:03 PM GRINDER AND PLATER Temperature 37.6 ??C (99.7 ??F) 03/21/2020 2:02 PM GRINDER AND PLATER Respiratory Rate 16 03/21/2020 2:02 PM GRINDER AND PLATER Oxygen Saturation 94% 03/21/2020 2:03 PM GRINDER AND PLATER Inhaled Oxygen Concentration - - Weight 111 kg (244 lb 7.8 oz) 03/21/2020 2:02 PM GRINDER AND PLATER Height 177.2 cm (5' 9.75) 03/21/2020 2:02 PM GRINDER AND PLATER Body Mass Index 35.33 03/21/2020 2:02 PM GRINDER AND PLATER documented in this encounter Discharge Instructions Discharge InstructionsKrista Snyder RN - 03/21/2020 1:36 PM CST Tonsillectomy & Adenoidectomy Care After These instructions give you information on caring for yourself after your procedure. Your doctor mayalso give you more specific instructions. Call your doctor if you have any problems or questions after your procedure. [facility] at [phone] -- [facility] [place] Dept at [phone] -- [facility] E[place] Dept at [phone] HOME CARE ??? Obtain proper rest, keeping your head elevated at all times. You will feel worn out and tired for a while. ??? Drink enough fluids to keep your urine clear or pale yellow. ??? Only take medicine as told by your doctor. You may use Tylenol and Ibuprofen alternating. ??? Eat soft and cold foods, such as ice cream, frozen ice pops, water, juices, sherbet, jello. Avoid carbonated drinks, and citrus juices. Avoid crusted food for 7-10 days . ??? Do not use straws. ??? Avoid mouth washes and gargles. ??? Avoid people with colds and sore throats. ??? Gum chewing will help with early swallowing. ??? Return to work/school as directed. ??? No swimming. ??? Humidity in the room will increase comfort. Use an ice pack for the first 12-24 hours. This may help with discomfort and keep swelling down. ??? Avoid coughing, gargling, and clearing the throat. ??? Small children should be watched closely for the first 24 hours. ??? It is normal for your throat to look bad and your breath to have an unpleasant smell for awhile. GET HELP RIGHT AWAY IF: * You have bleeding from your nose or throat-- Streaks of blood in the saliva are normal. ??? You develop a rash. ??? You have trouble breathing. ??? You have increased bleeding, you throw up (vomit ), or you cough or spit up bright red blood. ??? You have a temperature of 101 persisting for more than 24 hours. MAKE SURE YOU: ??? Understand these instructions. ??? Will watch your condition. ??? Will get help right away if you are not doing well or get worse. Document Released: 04/13/2011 Document Revised: 02/28/2012 Document Reviewed: 04/13/2011 ExitCare?? Patient Information ??2011 [employer] DER AND PLATER documented in this encounter Medications at Time of Discharge Medication Sig Dispensed Refills Start Date End Date cyclobenzaprine Take 10 mg by mouth 2 times daily 0 01/05/2016 (FLEXERIL) 10 MG tablet Take 1 tab by mouth two time s daily as needed for muscle spasms. ibuprofen (ADVIL,MOTRIN) Take 800 mg by mouth 0 200 MG tablet every 6 (six) hours if needed for mild pain Take with food. acetaminophen-codeine Take 1 tablet by 12 tablet 0 03/28/19 21 07/25/2020 (TYLENOL/CODEINE #3) mouth every 6 (six) 300-30 MG per hours if needed for tabletIndications: severe pain Hypertrophy of tonsils alone acetaminophen-codeine Take 15 mL by mouth 300 mL 0 03/2107/25/2020 120-12 MG/5ML every 4 (four) hours suspensionIndications: if needed for Hypertrophy of tonsils moderate pain or alone severe pain for up to 20 doses atorvastatin (LIPITOR) one nightly for 90 tablet 2 12/28/19 20 09/19/2020 20 MG tabletIndications: cholesterol Mixed hyperlipidemia Cannabidiol 100 MG/ML Take 100 mg by mouth 0 11/201907/25/2020 solution dexamethasone (DECADRON) 4 tabs for 2 days 23 tablet 0 05/2307/25/2020 2 MG tabletIndications: prior to surgery; Hypertrophy of tonsils skip surgery day; 5 alone tabs post-op day 1, 4 day 2, 3 day 3, 2 day 4, 1 day 5 DULoxetine (CYMBALTA) 60 Take one a day for 90 capsule 3 08/201904/25/[address] anxiety/depression/p capsuleIndications: ain Depression, unspecified depression type gabapentin (NEURONTIN) May take ONE capsule 90 capsule 3 03/22/2021 300 MG at night for capsuleIndications: pain/neuropathy or Neuropathy as directed lisinopril (ZESTRIL) 20 one pill daily for 90 tablet 2 07/201907/25/2020 MG tabletIndications: blood pressure Essential hypertension documented as of this encounter OR Notes Op Note - Scott Thurston MD - 03/21/2020 4:29 PM CST Preop Diagnosis: Tonsillar hypertrophy Postop Diagnosis: same Procedure: Tonsillectomy Surgeon: Scott Thurston Anesthesia: General endotracheal Estimated blood loss 10 cc Complications none Findings: Very large cryptic tonsils, no significant adenoid tissue Brief history: Patient was taken to the operating room due to a history of severely enlarged cryptictonsils Description of procedure and findings: Patient was taken the operating room and placed in supine position. After general anesthesia was induced, patient was oral endotracheally intubated by the anesthesia service. The mouthgag was placed and opened. The palate was intact. Patient had large tonsils bilaterally that were cryptic. The mirror was used to examine the nasopharynx. No adenoid tissue was noted. The tonsil on the left side was grasped with the tonsil-seizing forceps and pulled medially. Electrocautery was used to remove the tonsil in its entirety along tonsillar capsule. The right side was then approached. Tonsil-seizing forceps were used on this side as well and again the tonsil was removed along its capsule with electrical cautery. The patient tolerated the procedurewell there were no complications. The mouth was copiously irrigated with saline at the conclusion ofthe procedure DER AND PLATER Brief Op Note - Scott Thurston MD - 03/21/2020 4:29 PM CST Date: 03/21/2020 Location: [facility] OR Name: Fabiano Schwartz, : 1975, Diagnosis Pre-op Diagnosis * Hypertrophy of tonsils alone [J35.1] Post-op Diagnosis * Hypertrophy of tonsils alone [J35.1] Preliminary CPT code(s): No CPT code documented in operative note Procedure(s): TONSILLECTOMY Surgeon(s) and Role: * Scott Thurston MD - Primary Procedure Summary Anesthesia: General ASA: III Estimated Blood Loss: Minimal Staff: Director Of Sports Performance: Hannah Patino RN Scrub Person: Laisha Denton Indications: Fabiano Schwartz is an 45 y.o. male who is having surgery for Hypertrophy of tonsils alone [J35.1]. Findings: Large cryptic tonsils Complications: None; patient tolerated the procedure well. Disposition: PACU - hemodynamically stable. Condition: stable Attending Attestation: I performed the procedure. Scott Thurston MD DER AND PLATER documented in this encounter Plan of Treatment Not on filedocumented as of this encounter Procedures Procedure Name Priority Date/Time Associated Diagnosis Comme nts PATHOLOGY Routine 03/21/2020 4:32 PM Results f or this GRINDER AND PLATER procedure are i n the results section. TONSILLECTOMY 03/21/2020 4:14 PM Hypertrophy of tonsil s GRINDER AND PLATER alone documented in this encounter Results Pathology (03/21/2020 4:32 PM GRINDER AND PLATER) Specimen (Source) Anatomical Collection Method Collection Time Re ceived Time Location / / Volume Laterality Tissue (Other) 03/21/2020 4:32 PM GRINDER AND PLATER Tissue (Other) 03/21/2020 4:33 PM GRINDER AND PLATER Narrative [facility] - 02/24 9:28 AM GRINDER AND PLATER ? [facility] ? [address] ?[place] [address] ? Patient: ?FABIANO SCHWARTZ ?Procedure: ? 03/21/2020 16:32 /Age/Sex: ??1975, 45 Y, M ?Received: ?03/22/2020 08:40 ? Accession #: ?? [id number] Billing: ?[id number] ? Patient Location: Discharged Ordered by: ?? SCOTT THURSTON MD ? Attending: ? SCOTT THURSTON MD ?S URGICAL PATHOLOGY FINAL REPORT COPY TO: RAFFAELE RAHMAN MD; SCOTT TERRELL MD SPECIMEN: (A) TONSIL(S), LEFT (B) TONSIL(S), RIGHT CLINICAL INFORMATION: Hypertrophy of tonsils alone. GROSS DESCRIPTION: 1) Designated for cassette A, received i n formalin labeled left tonsil is a patrick-pink rubbery ovoid soft tissue measu ring 3.5 x 1.7 x 1.0 cm. Field Operations Coordinator sections are submitted into cassette A1. 2) Designated for cassette B, received i n formalin labeled right tonsil is a patrick-pink ovoid soft tissue measuring 3.0 x 2.0 x 0.7 cm. Field Operations Coordinator sections are submitted into cassette B1. REJI ROYAL ([facility]) CM Patient's identification labels match on requisition form and bottles. DIAGNOSIS: A and B) Tonsil, left and right, bilater al tonsillectomy: -Benign tonsillar tissue with follicular lymphoid hyperplasia, chronic and acute inflammation. <Sign Out Signature> VICTORIANO BLAIR MD (Electronically Signed) Reported: ??03/23/2020 ??09:28 ? Page 1 of 1 Scott Thurston MD LAB PATHOLOGY ORDERABLES Performing Organization Address City/State/ZIP Code Phon e Number [facility] [address] [place] [address] documented in this encounter Visit Diagnoses Diagnosis Hypertrophy of tonsils alone documented in this encounter Administered Medications Inactive Administered Medications - up to 3 most recent administrations Medication Order MAR Action Action Date Dose Rate Site lactated Ringer's infusion New Bag 03/21/2020 4:41 PM GRINDER AND PLATER 75 mL/hr, Intravenous, Continuous, Starting on Sat03/21/20 at 1430, For 5 days, Preprocedure Continued from Pre 03/21/2020 4:14 PM GRINDER AND PLATER New Bag 03/21/2020 2:22 PM GRINDER AND PLATER 75 mL/hr 75 mL/hr midazolam (VERSED) injection 2 mg Given 03/21/2020 3:16 PM GRINDER AND PLATER 2 mg 2 mg, Intravenous, Once, On Sat03/21/20 at 1600, For 1 dose, Preprocedure, Ensure patient has been been by surgeon prior to administration documented in this encounter Active and Recently Administered Medications Times are shown in GRINDER AND PLATER. Scheduled Medication Order 03/19/2020 03/20/2020 03/21/2020 midazolam (VERSED) injection 2 mg (COMPLETED) 0779 (Given - Provider: Soco Carmichael RN) 2 mg, Intravenous, Once, 12/28/20 at 1600, For 1 dose, Preprocedure, Ensure patient has been been by surgeon prior to administration Continuous Medication Order 03/19/2020 03/20/2020 03/21/2020 lactated Ringer's infusion 1422 (New Bag - Provider: Krista Snyder RN)1614 (Continued from Pre - Provider: Miranda Johnson APRN, SOIL SURVEYOR)1641 (New Bag - Provider: Miranda Johnson APRN, JESUS)1708 (Anesthesia Volume Adjustment - Provider: Miranda Johnson APRN, JESUS) 75 mL/hr, Intravenous, at 75 mL/hr, Cont inuous, Starting 03/21/20 at 1430, For 5 days, Preprocedure PRN Medication Order 03/19/2020 03/20/2020 03/21/2020 acetaminophen (TYLENOL) suspension 640 mg 1726 ([facility] Hold - Provider: Automatic Transfer Provider - Reason: Patient not available)2053 ([facility] Unhold - Provider: Automatic Discharge Provider) 640 mg (rounded from 650 mg), Oral, Once as needed, mild pain, moderate pain, Starting 03/21/20 at 1647, For 1 dose acetaminophen (TYLENOL) tablet 650 mg 172 ([facility] Hold - Provider: Automatic Transfer Provider - Reason: Patient not available)2053 ([facility] Unhold - Provider: Automatic Discharge Provider) 650 mg, Oral, Once as needed, mild pain, moderate pain, Starting 03/21/20 at 1648, For 1 dose oxyCODONE (ROXICODONE) 5 MG/5ML solution 5 mg 172 ([facility] Hold - Provider: Automatic Transfer Provider - Reason: Patient not available)2053 ([facility] Unhold - Provider: Automatic Discharge Provider) 5 mg, Oral, Once as needed, moderate edin n, severe pain, Starting 03/21/20 at 1657, For 1 dose documented in this encounter Care Teams Cognos Bi Administrator Relationship Specialty Start Date End Date Bethany Rahman MD PCP - General 10/29/[address] [place] [address] documented as of this encounter
--- OUTSIDE RECORDS SUMMARY | 2022-02-06 14:11 | XMS_ITS | Encounter Summary ---
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 Information and instructions for surgery were reviewed with patient including NPO guidelines. Patient will have family drop him off and pick him up on the DOS. Patient has had anesthesia in the past and has tolerated it well. Patient hasWPW, had an unsuccessful cardioversion, so is now managing it. Patient has [facility] [place], available for review in Legacy Chart. Patient was instructed to take medication on the DOS as directed by PCP. Patient denied questions. Preop nursing card was given and patient was encouraged to call should questions or concerns arise. Due to COVID, patient was told to self isolate 5 days prior to surgery. COVID testing id to be arranged by patient to happen at [facility], results should be available in Care Everywhere once completed. Patient told to complete this on at the latest. Patient is aware that visitors are not allowed except in pediatric or special needs patients. Information explained that we would ask for family phone number to call with up dates. Patient will wear mask on DOS. MOLDING MACHINE OPERATOR documented in this encounter Plan of Treatment Not on filedocumented as of this encounter Visit Diagnoses Not on filedocumented in this encounter Care Teams Employment Service Specialist Relationship Specialty Start Date End Date Bethany Rahman MD PCP - General 10/29/[address] [place] [address] documented as of this encounter
--- OUTSIDE RECORDS SUMMARY | 2022-02-06 14:11 | XMS_ITS | Encounter Summary ---
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 CBC Routine 12/30/2019 3:03 PM Hypertrophy of Results for this CDT tonsils alone procedure are in the results section. documented in this encounter Results CBC ([facility]) (12/30/2019 3:03 PM CDT) P athologist Signature WBC 7.7 3.5 - 10.5 12/30/2019 [facility] [place] K/uL 4:18 PM CDT [place] RBC 5.16 4.30 - 5.70 12/30/2019 [facility] [place] M/uL 4:18 PM CDT [place] Hemoglobin 15.6 13.5 - 17.5 12/30/2019 [facility] [place] g/dL 4:18 PM CDT [place] Hematocrit 46.8 38.0 - 50.0 12/30/2019 [facility] [place] % 4:18 PM CDT [place] Platelets 316 150 - 450 12/30/2019 [facility] [place] K/uL 4:18 PM CDT [place] MCV 90.7 81.2 - 95.1 12/30/2019 [facility] [place] fL 4:18 PM CDT [place] MCH 30.2 26.0 - 32.0 12/30/2019 [facility] [place] pg 4:18 PM CDT [place] MCHC 33.3 32.0 - 36.0 12/30/2019 [facility] [place] g/dL 4:18 PM CDT [place] RDW 13.1 11.8 - 15.6 12/30/2019 [facility] [place] % 4:18 PM CDT [place] Specimen Anatomical Collection Method Collection Time Receive d Time (Source) Location / / Volume Laterality Blood (Blood, 12/30/2019 3:03 PM 12/30/19 20 3:04 Venous) CDT PM CDT Scott Lott MD LAB BLOOD ORDERABLES Performing Organization Address City/State/ZIP Code Phon e Number [facility] [place] [address] [place] [address] [id number] IgG (12/30/2019 3:03 PM CDT) [facility] Method Time Signature Anti-SARS NON-REACTI Non-Reacti 12/31/2019 [place] CoV-2 IgG VE ve 2:38 PM CDT [...] addit ional testing. Testing was performed using [employer] Ajjj-KUMK-KxV-2 IgG Reagent Pac k assay which has received Emergency Use Authorization (EUA) by the U.S. Food and Drug Administration. Fact sheets for this Emergency Use Autho rization can be found at the following links: For Healthcare Providers: https://www.fda.gov/media/545202/downlo ad For Patients: https://www.fda.gov/media/627314/downlo ad Specimen Anatomical Collection Method Collection Time Receive d Time (Source) Location / / Volume Laterality Blood (Blood, 12/30/2019 3:03 PM 12/31/19 20 Venous) CDT 12:49 PM CDT Bethany Rahman MD LAB BLOOD ORDERABLES Performing Organization Address City/State/ZIP Code Phon e Number [facility] [address] [place] [address] documented in this encounter Visit Diagnoses Diagnosis Immunity status testing Antibody response examination Hypertrophy of tonsils alone documented in this encounter Care Teams Tube Puller Relationship Specialty Start Date End Date Bethany Rahman MD PCP - General 10/29/[address] [place] [address] documented as of this encounter
--- OUTSIDE RECORDS SUMMARY | 2022-02-06 14:11 | XMS_ITS | Encounter Summary ---
:[address] [facility] Address [address] [place] [address] Care Team Providers Name Role Phone eBthany Rahman MD Primary Care Provider Reason for Visit Auth/Cert Specialty Diagnoses / Procedures Referred By Contact Refer red To Contact Diagnoses Hypertrophy of tonsils alone Hypertrophy of tonsils alone [J35.1] Procedures TONSILLECTOMY Referral ID Status Reason Start Date Expiration Date Visits Requ ested Visits Authorized [id number] 1 1 Encounter Details Date Type Department Care Team Description 03/21/2020 Hospital Encounter [facility] OrenScott MD Medical/Surgical [address] [place] [address] Social History Tobacco Use Types [...] at Date Recorded 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 documented as of this encounter Last Filed Vital Signs Vital Sign Reading Time Taken Comments Blood Pressure 144/91 03/21/2020 6:37 PM ASSISTANT PURCHASING MANAGER Pulse 91 03/21/2020 6:37 PM ASSISTANT PURCHASING MANAGER Temperature 37.7 ??C (99.9 ??F) 03/21/2020 5:38 PM ASSISTANT PURCHASING MANAGER Respiratory Rate 20 03/21/2020 5:38 PM ASSISTANT PURCHASING MANAGER Oxygen Saturation 97% 03/21/2020 6:37 PM ASSISTANT PURCHASING MANAGER Inhaled Oxygen Concentration - - Weight 111 kg (244 lb 7.8 oz) 03/21/2020 2:02 PM ASSISTANT PURCHASING MANAGER Height 177.2 cm (5' 9.75) 03/21/2020 2:02 PM ASSISTANT PURCHASING MANAGER Body Mass Index 35.33 03/21/2020 2:02 PM ASSISTANT PURCHASING MANAGER documented in this encounter Discharge Instructions Discharge InstructionsKrista Snyder RN - 03/21/2020 1:36 PM CST Tonsillectomy & Adenoidectomy Care After These instructions give you information on caring for yourself after your procedure. Your doctor barb give you more specific instructions. Call your doctor if you have any problems or questions after your procedure. [facility] Outpatient Surgical Services at [phone] -- [facility] ER Dept at [phone] -- [facility] ENT Dept at [phone] HOME CARE ??? Obtain proper rest, keeping [...] Document Reviewed: 04/13/2011 ExitCare?? Patient Information ??2011 [employer]. STANT PURCHASING MANAGER documented in this encounter Medications at Time [...] MG/ML Take 100 mg by mouth 0 08/2407/25/2020 solution dexamethasone (DECADRON) 4 tabs for 2 [...] with saline at the conclusion ofthe procedure STANT PURCHASING MANAGER Brief Op Note - Scott Thurston MD - 03/21/2020 4:29 PM CST Date: 03/21/2020 Location: [facility] OR Name: Fabiano Schwartz, : 1975, Diagnosis Pre-op Diagnosis * Hypertrophy of tonsils alone [J35.1] Post-op Diagnosis * Hypertrophy of tonsils alone [J35.1] Preliminary CPT code(s): No CPT code documented in operative note Procedure(s): TONSILLECTOMY Surgeon(s) and Role: * Scott Thurston MD - Primary Procedure Summary Anesthesia: General ASA: III Estimated Blood Loss: Minimal Staff: Policy Advisor: Hannah Patino RN Scrub Person: Laisha Denton Indications: Fabiano Schwartz is an 45 y.o. male who is having surgery for Hypertrophy of tonsils alone [J35.1]. Findings: Large cryptic tonsils Complications: None; patient tolerated the procedure well. Disposition: PACU - hemodynamically stable. Condition: stable Attending Attestation: I performed the procedure. Scott Thurston MD STANT PURCHASING MANAGER documented in this encounter Plan of Treatment Not on filedocumented as of this encounter Procedures Procedure Name Priority Date/Time Associated Diagnosis Comme nts PATHOLOGY Routine 03/21/2020 4:32 PM Results f or this ASSISTANT PURCHASING MANAGER procedure are i n the results section. TONSILLECTOMY 03/21/2020 4:14 PM Hypertrophy of tonsil s ASSISTANT PURCHASING MANAGER alone documented in this encounter Results Pathology (03/21/2020 4:32 PM ASSISTANT PURCHASING MANAGER) Specimen (Source) Anatomical Collection Method Collection Time Re ceived Time Location / / Volume Laterality Tissue (Other) 03/21/2020 4:32 PM ASSISTANT PURCHASING MANAGER Tissue (Other) 03/21/2020 4:33 PM ASSISTANT PURCHASING MANAGER Narrative [facility] - 02/24 9:28 AM ASSISTANT PURCHASING MANAGER ? [facility] ? [address] ?[place] [address] ? Patient: ?FABIANO SCHWARTZ ?Procedure: ? 03/21/2020 16:32 /Age/Sex: ??1975, 45 Y, M ?Received: ?03/22/2020 08:40 ? Accession #: ?? [id number] Billing: ?[id number] ? Patient Location: Discharged Ordered by: ?? [...] ring 3.5 x 1.7 x 1.0 cm. Quality Review Specialist sections are submitted into cassette A1. 2) Designated for cassette B, received i n formalin labeled right tonsil is a patrick-pink ovoid soft tissue measuring 3.0 x 2.0 x 0.7 cm. Quality Review Specialist sections are submitted into cassette B1. REJI ROYAL (ASCP) CM Patient's identification labels match on requisition form and bottles. DIAGNOSIS: A and B) Tonsil, left and right, bilater al tonsillectomy: -Benign tonsillar tissue with follicular lymphoid hyperplasia, chronic and acute inflammation. <Sign Out Dr. [place]> VICTORIANO BLAIR MD (Electronically Signed) Reported: ??03/23/2020 ??09:28 ? Page 1 of 1 Scott Thurston MD LAB PATHOLOGY ORDERABLES Performing Organization Address City/State/ZIP Code Phon e Number [facility] [address] [place] [address] documented in this encounter Visit Diagnoses Not on filedocumented in this encounter Administered Medications Inactive Administered Medications - up to 3 most recent administrations Medication Order MAR Action Action Date Dose Rate Site lactated Ringer's infusion New Bag 03/21/2020 4:41 PM ASSISTANT PURCHASING MANAGER 75 mL/hr, Intravenous, Continuous, Starting on Sat03/21/20 at 1430, For 5 days, Preprocedure Continued from Pre 03/21/2020 4:14 PM ASSISTANT PURCHASING MANAGER New Bag 03/21/2020 2:22 PM ASSISTANT PURCHASING MANAGER 75 mL/hr 75 mL/hr midazolam (VERSED) injection 2 mg Given 03/21/2020 3:16 PM ASSISTANT PURCHASING MANAGER 2 mg 2 mg, Intravenous, Once, On Sat03/21/20 at 1600, For 1 dose, Preprocedure, Ensure patient has been been by surgeon prior to administration documented in this encounter Active and Recently Administered Medications Times are shown in ASSISTANT PURCHASING MANAGER. Scheduled Medication Order 03/19/2020 03/20/2020 03/21/2020 midazolam (VERSED) injection 2 mg (COMPLETED) 1516 (Given - Provider: Soco Carmichael RN) 2 mg, Intravenous, Once, Sat03/21/20 at 1600, For 1 dose, Preprocedure, Ensure patient has been been by surgeon prior to administration Continuous Medication Order 03/19/2020 03/20/2020 03/21/2020 lactated Ringer's infusion 1422 (New Bag - Provider: Krista Snyder RN)1614 (Continued from Pre - Provider: Miranda Johnson APRN, ELECTRICAL ASSISTANT)1641 (New Bag - Provider: Miranda Johnson APRN, JESUS)1708 (Anesthesia Volume Adjustment - Provider: Miranda Johnson APRN, JESUS) 75 mL/hr, Intravenous, at 75 mL/hr, Cont inuous, Starting Sat03/21/20 at 1430, For 5 days, Preprocedure PRN Medication Order 03/19/2020 03/20/2020 03/21/2020 acetaminophen (TYLENOL) suspension 640 mg 1726 ([facility] Hold - Provider: Automatic Transfer Provider - Reason: Patient not available)2053 ([facility] Unhold - Provider: Automatic Discharge Provider) 640 mg (rounded from 650 mg), Oral, Once as needed, mild pain, moderate pain, Starting Sat03/21/20 at 1647, For 1 dose acetaminophen (TYLENOL) tablet 650 mg 1726 ([facility] Hold - Provider: Automatic Transfer Provider - Reason: Patient not available)2053 ([facility] Unhold - Provider: Automatic Discharge Provider) 650 mg, Oral, Once as needed, mild pain, moderate pain, Starting Sat03/21/20 at 1648, For 1 dose oxyCODONE (ROXICODONE) 5 MG/5ML solution 5 mg 1726 ([facility] Hold - Provider: Automatic Transfer Provider - Reason: Patient not available)2053 ([facility] Unhold - Provider: Automatic Discharge Provider) 5 mg, Oral, Once as needed, moderate edin n, severe pain, Starting Sat03/21/20 at 1657, For 1 dose documented in this encounter Care Teams Surety Bond Agent Relationship Specialty Start Date End Date Bethany Rahman MD PCP - General 10/29/[address] [place] [address] documented as of this encounter
--- OUTSIDE RECORDS SUMMARY | 2022-02-06 14:11 | XMS_ITS | Encounter Summary ---
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 CBC BRANCH OFFICE Routine 03/14/2020 4:07 PM Resu lts for this W/DIFF KEY ACCOUNT COORDINATOR procedure are i n the results section. BASIC METABOLIC Routine 03/14/2020 4:07 PM Preop examination R esults for this PANEL KEY ACCOUNT COORDINATOR procedure are i n the results section. documented in this encounter Results Glomerular filtration rate (GFR) (03/14/2020 4:07 PM KEY ACCOUNT COORDINATOR) P athologist Signature GFR >60 03/14/2020 [facility] 4:51 PM KEY ACCOUNT COORDINATOR [facility] >60 03/14/2020 [facility] [place] GFR 4:51 PM KEY ACCOUNT COORDINATOR [facility] Comment: GFR calculated from serum creatinine v alue Chronic Kidney Disease less than 60 mL/m in/1.73 m2 Kidney Failure less than 15 mL/min/1.73 m2 Note: effective 08/07/06 IDMS-Traceable MDRD Study Equation used. Specimen Anatomical Collection Method Collection Time Receive d Time (Source) Location / / Volume Laterality 03/14/2020 4:07 PM 0 4:07 KEY ACCOUNT COORDINATOR PM KEY ACCOUNT COORDINATOR D. Derrick Rahman MD LAB BLOOD ORDERABLES Performing Organization Address City/State/ZIP Code Phon e Number [facility] [address] [place] [phone] CBC Branch Off w/Diff (03/14/2020 4:07 PM KEY ACCOUNT COORDINATOR) athologist Signature WBC 9.1 3.5 - 10.5 03/14/2020 [facility] K/u[facility] 4:51 PM KEY ACCOUNT COORDINATOR [place] RBC 5.00 4.30 - 03/14/2020 [facility] 5.70 M/uL 4:51 PM KEY ACCOUNT COORDINATOR [place] Hemoglobin 15.2 13.5 - 03/14/2020 [facility] 17.5 g/dL 4:51 PM KEY ACCOUNT COORDINATOR [place] Hematocrit 45.7 38.0 - 03/14/2020 [facility] 50.0 % 4:51 PM KEY ACCOUNT COORDINATOR [place] Platelets 337 150 - 450 03/14/2020 [facility] 4:51 PM KEY ACCOUNT COORDINATOR [place] MCV 91.4 81.2 - 03/14/2020 [facility] 95.1 fL 4:51 PM KEY ACCOUNT COORDINATOR [place] MCH 30.4 26.0 - 03/14/2020 [facility] 32.0 pg 4:51 PM KEY ACCOUNT COORDINATOR [place] MCHC 33.3 32.0 - 03/14/2020 [facility] 36.0 g/dL 4:51 PM KEY ACCOUNT COORDINATOR [place] RDW 13.0 11.8 - 03/14/2020 [facility] 15.6 % 4:51 PM KEY ACCOUNT COORDINATOR [place] Lymphocytes % 26.3 % 03/14/2020 [facility] 4:51 PM KEY ACCOUNT COORDINATOR [place] Mid-size Cells 10.0 % 03/14/2020 [facility] 4:51 PM KEY ACCOUNT COORDINATOR [place] Granulocytes/Travis 63.7 % 03/14/2020 [facility] trophils 4:51 PM KEY ACCOUNT COORDINATOR [place] Lymphocytes 2.4 0.9 - 2.9 03/14/2020 [facility] Absolute K/uL 4:51 PM KEY ACCOUNT COORDINATOR [place] MIDS Absolute 0.9 0.4 - 1.5 03/14/2020 [facility] K/uL 4:51 PM KEY ACCOUNT COORDINATOR [place] Granulocytes/Travis 5.8 1.7 - 7.0 03/14/2020 [facility] trophils K/uL 4:51 PM KEY ACCOUNT COORDINATOR [place] Absolute Specimen Anatomical Collection Method Collection Time Receive d Time (Source) Location / / Volume Laterality 03/14/2020 4:07 PM 0 4:31 KEY ACCOUNT COORDINATOR PM KEY ACCOUNT COORDINATOR D. Derrick Rahman MD LAB BLOOD ORDERABLES Performing Organization Address City/State/ZIP Code Phon e Number [facility] [place] [address] [place] [address] Basic metabolic panel (03/14/2020 4:07 PM KEY ACCOUNT COORDINATOR) P athologist Signature Sodium 142 135 - 145 03/14/2020 [facility] mmol/L 4:51 PM KEY ACCOUNT COORDINATOR [place] Potassium 3.9 3.5 - 5.1 03/14/2020 [facility] mmol/L 4:51 PM KEY ACCOUNT COORDINATOR [place] Comment: . Chloride 101 98 - 107 mmol/L 03/14/2020 4:51 PM KEY ACCOUNT COORDINATOR [facility] [place] Comment: . CO2 31 22 - 31 mmol/L 03/14/2020 4:51 PM KEY ACCOUNT COORDINATOR [facility] [place] Comment: . Creatinine 0.9 0.6 - 1.4 mg/dL 03/14/2020 4:51 PM KEY ACCOUNT COORDINATOR [facility] [place] Comment: . BUN 12 5 - 25 mg/dL 03/14/2020 4:51 PM KEY ACCOUNT COORDINATOR [facility] [place] Comment: . Glucose 95 70 - 100 mg/dL 03/14/2020 4:51 PM KEY ACCOUNT COORDINATOR [facility] [place] Calcium, Total,S 9.3 8.4 - 10.2 mg/dL 03/14/2020 4:51 PM KEY ACCOUNT COORDINATOR [facility] [place] Comment: . Fasting? No 03/14/2020 4:31 PM KEY ACCOUNT COORDINATOR [facility] [place] Comment: 1+ lipemic Specimen Anatomical Collection Method Collection Time Receive d Time (Source) Location / / Volume Laterality Blood 03/14/2020 4:07 PM 0 4:31 KEY ACCOUNT COORDINATOR PM KEY ACCOUNT COORDINATOR Bethany Rahman MD LAB BLOOD ORDERABLES Performing Organization Address City/State/ZIP Code Phon e Number [facility] [place] [address] [place] [address] documented in this encounter Visit Diagnoses Diagnosis Preop examination Unspecified pre-operative examination documented in this encounter Care Teams Senior Drupal Developer Relationship Specialty Start Date End Date Bethany Rahman MD PCP - General 10/29/[address] [place] [address] documented as of this encounter
--- OUTSIDE RECORDS SUMMARY | 2022-02-06 14:11 | XMS_ITS | Encounter Summary ---
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 GER UROLOGY Telephone Encounter - Evangelina Flower RN - 03/14/2020 1:37 PM CST Left message to call. Dex and pain meds sent in to pharmacy GER UROLOGY Telephone Encounter - Edi Morales Yamile - 03/14/2020 11:35 AM CST Patient had called wishing to speak with ENT nurse Evangelina regarding a phone call he received. Patient will be available again today around 2:15 pm. Please call patient back at [phone] GER UROLOGY documented in this encounter Plan of Treatment Not on filedocumented as of this encounter Visit Diagnoses Not on filedocumented in this encounter Care Teams Flask Cleaner Relationship Specialty Start Date End Date Bethany Rahman MD PCP - General 10/29/[address] [place] [address] documented as of this encounter
--- OUTSIDE RECORDS SUMMARY | 2022-02-06 14:11 | XMS_ITS | Encounter Summary ---
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 of this encounter Last Filed Vital Signs Vital Sign Reading Time Taken Comments Blood Pressure 110/82 09/19/2020 11:06 AM CDT Pulse 88 09/19/2020 11:06 AM CDT Temperature 35.9 ??C (96.6 ??F) 09/19/2020 11:06 AM CDT Respiratory Rate 16 09/19/2020 11:06 AM CDT Oxygen Saturation 94% 09/19/2020 11:06 AM CDT Inhaled Oxygen Concentration - - Weight 113 kg (249 lb) 09/19/2020 11:06 AM CDT Height 177.2 cm (5' 9.76) 09/19/2020 11:06 AM CDT Body Mass Index 35.97 09/19/2020 11:06 AM CDT documented in this encounter Progress Notes Bethany Rahman MD - 09/19/2020 11:20 AM CDT Estab Patient Visit Subjective Patient ID: Fabiano Schwartz is a 45 y.o. male. HPI the patient is here today to get a work note stating he can go back to work after his recent infection with Covid-19. The patient is currently working at [employer] in [place], [place]. His work consist of four 10-hour days 1 week and then six 10-hour days in the next week. 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 On August 25 of this year the patient came down with some symptoms of a cough runny nose body aches headaches little stomach nausea and a loss of smell. On August 27 he was tested for Covid 19 at I believe the ER in [facility]. They did not do any lab test just the COVID-19 test. He was positive and his first day off work was August 29. He tried to return to work on 13 September after being off work for 14 days however after just a couple hours at work he developed a low-grade temp nausea was not feelinggood and was sent home and he was told he needed a note from a physician before going back to work. It has now been an additional 6 days and is feeling better he has no further symptoms no headaches no fever no chills essentially the cough feels close to 100% improved no shortness of breath no nauseaor throwing up appetites been okay no muscle aches joint pains and so forth. His activity level around the house is back to normal without any problems. Review of Systems Objective Physical Exam he is alert he appears comfortable vital signs show the following Blood pressure 110/62 pulse 88 regular rate and rhythm temp 96.6 current weight 249 pounds his BMI is 36 and his O2 sats 94% room air at rest. Pupils equal conjunctiva clear Tongue is moist throat is clear Neck no adenopathy no thyromegaly no masses Lungs are clear without wheeze rales or rhonchi including on forced exhalation and cough Cardiac is regular rate and rhythm with a heart murmur Abdomen is soft nontender no hepatosplenomegaly no masses Extremities joints and skin within relative normal limits No laboratory tests were felt to be needed Assessment/Plan Diagnoses and all orders for this visit: COVID-19 Mixed hyperlipidemia - atorvastatin (LIPITOR) 20 MG tablet; one nightly for cholesterol The overall assessment is recent COVID-19 infection and the plan at this time is to print a work note for the patient that says he can return to work by of this week. documented in this encounter Plan of Treatment Not on filedocumented as of this encounter Visit Diagnoses Diagnosis COVID-19 - Primary Mixed hyperlipidemia documented in this encounter Care Teams Blast Furnace Tender Relationship Specialty Start Date End Date Bethany Rahman MD PCP - General 10/29/[address] [place] [address] documented as of this encounter
--- OUTSIDE RECORDS SUMMARY | 2022-02-06 14:11 | XMS_ITS | Encounter Summary ---
:1975 Author Organization [facility] Address [address] [place] [address] Care Team Providers Name Role Phone Bethany Rahman MD Primary Care Provider Reason for Visit Reason Onset Date Comments update FMLA time off 09/13/2020 Encounter Details Date Type Department Care Team Description 09/13/2020 Telephone [place] Bethany Rahman, update [facility] time off [address] [place] [address] [phone] [place] [address] Social History Tobacco Use Types Packs/Day Years [...] at Date Recorded 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 Telephone Encounter - Elida Flynn RN - 09/19/2020 10:19 AM CDT No answer, patient scheduled today with provider. Telephone Encounter - Bethany Rahman MD - 09/19/2020 7:50 AM CDT I have not received any FMLA papers from [employer]. Contact him and see if he is going to be getting us a copy or whether he needs to contact someone to have it faxed to us. Also ask him why the forms are being filled out as I am in a little more specific information as to specifics of why he is requesting it at this time. Telephone Encounter - Elida Flynn RN - 09/13/2020 4:49 PM CDT Please review. Telephone Encounter - Ilda Strange - 09/13/2020 4:35 PM CDT Did try to go back to work - it didn't work out needs FMLA updated to reflect that - he will get thepaperwork turned in to the office- is off again - hoping to go back the documented in this encounter Plan of Treatment Not on filedocumented as of this encounter Visit Diagnoses Not on filedocumented in this encounter Care Teams Container Filler Relationship Specialty Start Date End Date Bethany Rahman MD PCP - General 10/29/[address] [place] [address] documented as of this encounter
--- OUTSIDE RECORDS SUMMARY | 2022-02-06 14:12 | XMS_ITS | Encounter Summary ---
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
--- OUTSIDE RECORDS SUMMARY | 2022-02-06 14:12 | XMS_ITS | Encounter Summary ---
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 Tonsillectomy. Please review pre/post operative medications. documented in this encounter Plan of Treatment Not on filedocumented as of this encounter Visit Diagnoses Diagnosis Hypertrophy of tonsils alone - Primary documented in this encounter Care Teams Grappler Relationship Specialty Start Date End Date Bethany Rahman MD PCP - General 10/29/[address] [place] [address] documented as of this encounter
--- OUTSIDE RECORDS SUMMARY | 2022-02-06 14:12 | XMS_ITS | Encounter Summary ---
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 Thanks. documented in this encounter Plan of Treatment Not on filedocumented as of this encounter Visit Diagnoses Not on filedocumented in this encounter Care Teams Long Wall Mining Machine Tender Relationship Specialty Start Date End Date Bethany Rahman MD PCP - General 10/29/[address] [place] [address] documented as of this encounter
--- OUTSIDE RECORDS SUMMARY | 2022-02-06 14:12 | XMS_ITS | Encounter Summary ---
:[address] 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
--- OUTSIDE RECORDS SUMMARY | 2022-02-06 14:12 | XMS_ITS | Encounter Summary ---
:1975 Author Organization [facility] Address [address] [place] [address] Care Team Providers Name Role Phone Bethany Rahman MD Primary Care Provider Reason for Visit Consultation (Routine) - Closed Specialty Diagnoses / Procedures Referred By Contact Refer red To Contact Cardiology Diagnoses WPW (Hruld-Vuhqyjemg-Uatuf syndrome) Bethany Rahman MD [address] [address] Referral ID Status Reason Start Date Expiration Date Visits V isits Requested Authorized [id number] Closed Specialty 05/19/2019 05/19/2020 1 1 Services Required Encounter Details Date Type Department Care Team Description 05/29/2019 Consult NW CARDIOLOGY Bethany Rahman MD [address] [address] WPW [address] [facility] Dhiraj Stovall MD ([place] [address] syndrome) (Primary Dx) [phone] Social History Tobacco Use Types Packs/Day Years Used Date Former Smoker Smokeless Tobacco: Never Used Alcohol Use Standard Drinks/Week Comments Yes 0 (1 standard drink = 0.6 oz pure alcoho l) drinks once a month Alcohol Habits Answer Date Recorded How often do you have a drink containing alcohol? Not asked How many drinks containing alcohol do you have on a Not aske d typical day when you are drinking? How often do you have six or more drinks on one Not asked occasion? 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 as of this encounter Last Filed Vital Signs Vital Sign Reading Time Taken Comments Blood Pressure 127/84 05/29/2019 10:06 AM TOOL SALVAGE WORKER Pulse 98 05/29/2019 10:06 AM TOOL SALVAGE WORKER Temperature 36.8 ??C (98.2 ??F) 05/29/2019 10:06 AM TOOL SALVAGE WORKER Respiratory Rate 16 05/29/2019 10:06 AM TOOL SALVAGE WORKER Oxygen Saturation 97% 05/29/2019 10:06 AM TOOL SALVAGE WORKER Inhaled Oxygen Concentration - - Weight 106 kg (234 lb) 05/29/2019 10:06 AM TOOL SALVAGE WORKER Height 177.8 cm (5' 10) 05/29/2019 10:06 AM TOOL SALVAGE WORKER Body Mass Index 33.58 05/29/2019 10:06 AM TOOL SALVAGE WORKER documented in this encounter Patient Instructions Patient InstructionsDhiraj Stovall MD - 05/29/2019 10:00 AM CST 1. You are cleared from a cardiovascular standpoint at this time for your upcoming tonsillectomy forwhich I can make appropriate recommendations to include ECG monitoring during the procedure during and immediately post procedure. 2. To be seen back in cardiology with me if cardiovascular questions arise and can be seen in the [facility] if convenient. SALVAGE WORKER documented in this encounter Progress Notes Talib Mattson RN - 05/29/2019 10:00 AM CST Nurse Note Attempted to obtain Release of Information from [facility] due to previously being seen there. Patient has a history of WPW. Patient denied any care at [facility] and stated that Sukhwinder Noble is who he saw for his WPW history. Patient declined to sign for CARLITOS from [facility]. SALVAGE WORKER Dhiraj Stovall MD - 05/29/2019 10:00 AM CST Consultation Patient ID: Fabiano Schwartz is a 44 y.o. male. Referring Provider: Derrick Rahman MD; [facility], [facility] HPI This very pleasant 44-year-old gentleman is seen as a preoperative cardiovascular consult prior to undergoing a scheduled tonsillectomy for him extremely large tonsils 06/16/[address] Scott Lott at [facility]. This consultation triggered by his previous history of a potentialcardiac arrest post use of apparently cocaine laced marijuana at age 18. Mr. Schwartz has been seen previously at [facility] with Dr. Kendal Gnozalez 10/17 2014, and his previous detailedcardiovascular evaluation transpired at [facility] and the [facility]. Per available records, patient was found to have preexcitation prior assessment in 1992. Presentation remarkable for apparently his parents driving him to the hospital after he was markedly dizzy and experiencing chest tightness after use of apparent cocaine laced marijuana. He apparently had a suddencardiac arrest en route for which he was defibrillated and subsequently underwent detailed electrophysiological assessment. Apparently his electrophysiology study documented presence of an accessory pathway but the study demonstrated no evidence of retrograde conduction of this pathway and the right free wall accessory pathway has been effective refractory. Longer than 650 ms. Therefore deemed that no ablation was necessary or performed. This completes notes not currently available on records that date back to just 1999. He has subsequently done reasonably well but been troubled apparently suffering residual anxiety from his presenting event and has experienced periodic episodes of tachycardia andpalpitations which are markedly disturbing. He is undergoing assessment for this previously including at [facility] for which he was seen 01/2009 in follow-up electrophysiology consultation with Dr. Mg mckinney at [facility]. A CardioNet monitor at that time showed no evidence of anyabnormal supraventricular or ventricular dysrhythmias with maintenance of normal sinus rhythm and benign heart rates in the 60 to 100 bpm range however he did experience episode of tachycardia upon awakening but no abnormal arrhythmias with an echocardiogram demonstrating benign study with a left ventricular ejection fraction of 62% at that time. He was reassured that he had no significant active electrophysiological problems at the time and was advised that he might consider seeking help for means of coping with anxiety which was [id number] with his palpitations. He been seen by Dr. Kendal Gonzalez for similar problems with palpitations also experiencing exertional dyspnea and occasional associated chest discomfort. Seen in consultation by Dr. Gonzalez 09/30/2014 he was referred for stress electrocardiogram which was performed 11/02/2014 and remarkable patient demonstrating limited overall exercise tolerance totaling rating 4: 46 (min: sec) on a manual protocol to a double product of 23,000 250 and achieving just 50% of his functional aerobic density at a 6.3 METS level of exercise. However he did achieve 85% of his age-predicted maximal heart rate of 148 with a stress electrocardiogram negative for myocardial ischemia with minor arrhythmias noted with greater than 5 VPCs per minute with no ventricular runs. At this time he relates that he ihas done better since that time coping with his palpitations and tachycardia which he still experiences. He denies recent chest pain, admits to being somewhat out of shape and slightly dyspneic with higher levels of activity. He has already recently undergone Podiatricsurgery just recently at [facility] with Dr. Justin Gonzales in performing a Tailor's bunion correction by osteotomy, removal of the second toenail and excision of a plantar fibroma uneventfully. Anesthesia at that time was by MAC with local. Procedure was uneventful. Apparently he is to receive general anesthesia for the tonsillectomy which should be a brief procedure. This gentleman has no history of known coronary disease albeit he does have risk factors for coronary artery disease including mild hypertension currently well controlled, and dyslipidemia. His most recent fasting lipid profile was from 03/28/2018 that demonstrated a significantly elevated total cholesterol 245 mg stressor, triglycerides of 358 mg/dL, and HDL cholesterol 35 mg/dL, and an elevated LDL HDL cholesterol 138 mg/dL. For this he was initiated on atorvastatin 20 mg orally daily with no recentfollow-up available. He apparently has had some reluctance about statins but is tolerating the atorvastatin reasonably well. Additionally his father apparently of a myocardial infarction question 67 with no other family members that he is aware of having coronary artery disease. Patient is essentially a non-smoke, having smoked barely briefly at approximately age 19 and ever since. He additionally has no history of diabetes mellitus. There is mention made in his previous records that he had undergone a coronary angiogram, but I believe that was mention was actually referring to his electrophysiology assessment and see no record of a coronary angiogram. The following portions of the patient's chart were reviewed in this encounter and updated as appropriate: Tobacco Allergies Meds Med Hx Surg Hx Fam Hx Soc Hx ROS General: Weight has been stable. Denies fevers, chills or sweats. He is hoping that after his foot surgery will be able to exercise more to lose weight admitting that he is moderately overweight. HEENT: Vision is good. Denies difficulty hearing, breathing through the nose or swallowing. Endocrine: Has no history of known thyroid disease, or diabetes mellitus, but does have significant dyslipidemia currently on atorvastatin 20 mg orally daily and due for follow-up fasting lipid profilein the near future. He has no known other metabolic disorder. Pulmonary: Denies bronchospasm, sputum production, cough or recent pulmonary infection. Cardiovascular: Is as per the above history of the present illness. Gastrointestinal: Denies nausea, vomiting, abdominal pain, rectal bleeding, constipation or diarrheaor loss of appetite. Genitourinary: Denies dysuria, hematuria or recent urinary tract infection. Musculoskeletal: Denies joint swelling or discomfort. Denies lower extremity edema or leg pain. Is right foot is in the process of healing from his recent surgery with Dr. Gonzales performed yesterday, 05/29/2019 Dermatological: Denies rash , or other active skin disorder. Hematological: Has no history of known familial bleeding disorder or personal easy bruisability. Neurological: Denies numbness, weakness, gait disturbance or history of stroke. Psychiatric: Denies depression, anxiety or related disorder. Admits to chronic significant anxiety but feels that he is gradually doing better in the recent past. Physical Exam Blood pressure 127/84, pulse 98, temperature 36.8 ??C (98.2 ??F), temperature source Temporal, resp.rate 16, height 1.778 m (5' 10), weight 106 kg (234 lb), SpO2 97 %. Generally: Very pleasant patient in no acute distress. Speaks freely without dyspnea. Weight has been stephei. He has mild to moderately overweight with predominately abdominal prominence which he would like to work at after getting over his recent right foot surgery. HEENT: The pupils are equally round and reactive to light and accommodation. Extraocular muscles areintact. Ears and nose are normal. Pharynx is clear. Buccal mucosa is moist. Neck: Supple with full range of motion. No lymphadenopathy or thyromegaly noted. Carotids are grade 4/4 bilaterally with normal upstroke and no bruit appreciated. Lungs: Clear to auscultation and percussion bilaterally with no rales, wheezing or dullness noted. Cardiovascular: The jugular venous pressure and point of maximal intensity are normal. Heart tones somewhat distant secondary to his body habitus. The first and second heart sounds are normal. No murmur, gallop, rub or click is noted. No extrasystoles are appreciated during auscultation or subsequent palpation of the peripheral pulse for approximately 2 minutes. Abdomen: Soft and nontender. No rebound, guarding, hepatosplenomegaly or mass noted. No abdominal bruit is present. Back: No CVA or paraspinal muscle tenderness noted. Skin: No rash, petechiae or ecchymoses present. Extremities: No joint swelling or deformity noted. Skin is warm and dry. No edema present. His rightfoot bandaged and not examined. Pedal pulses normal on the left. Neurological: Fully oriented. Cranial nerves II through XII, motor, sensory, and deep tendon reflexes grossly equal and symmetrical. Psychiatric: Mood, affect, insight and decision-making are normal. Lab Review: Lab on 05/13/2019 Component Date Value ??? Sodium 05/13/2019 142 ??? Potassium 05/13/2019 3.6 ??? Chloride 05/13/2019 102 ??? CO2 05/13/2019 32* ??? Creatinine 05/13/2019 0.7 ??? BUN 05/13/2019 11 ??? Glucose 05/13/2019 100 ??? Calcium, Total,S 05/13/2019 9.2 ??? Fasting? 05/13/2019 Yes ? ? GFR 05/13/2019 >60 ? ? GFR 05/13/2019 >60 Most recent twelve-lead ECG, 03/20/2019: 1. Normal sinus rhythm at 76 bpm. 2. Variant minimal shortening of the VT interval at 116 ms. 3. Otherwise normal tracing. ASSESSMENT: 1. Apparent history of previous cardiac arrest, although complete details not available for review with patient undergoing electrophysiology assessment including electrophysiology study at [facility] apparently 1992 that was in conjunction with a twelve-lead electrocardiogram indicative of preexcitation/WPW with a formal study demonstrating no evidence of significant conduction defect with the patient being unable to patient's study as described above failing to induce or display concerning findings related to preexcitation with a resultant no ablation was performed. Subsequent evaluation by CardioNet monitoring also demonstrated no significant supraventricular or ventricular dysr hythmias with palpitations and episodes of tachycardia presumed to be secondary to anxiety which thepatient would agree with. 2. Potential risk factors for coronary disease are modest but he does have significant dyslipidemia he is on a statin he needs a follow-up fasting lipid profile. 3. He does have mild hypertension currently apparently well controlled. 4. Preoperative for relatively benign procedure in the scheduled tonsillectomy and patient having undergone less aggressive anesthesia where his right foot surgery with Dr. Gonzales without problems just a day prior. PLAN: 1. Believe the patient is clear for his tonsillectomy including under general anesthesia without further assessment at this juncture given his recent evaluations and that his only concerning cardiovascular event actually was related likely to cocaine use with no recurrent event since and with detailed electrophysiological assessment feeling to be able to induce a tachydysrhythmia and hence no ablation having been performed. His electrophysiology study suggests that he has a very low risk for his potential pathway treating a significant dysrhythmia. 2. Given his history, today around the safe side would advise he be observed with electrocardiographic monitoring during and immediately after the procedure. 3. Otherwise to be seen back in cardiology with me on an as-needed basis. 4. To make certain to have a fasting lipid profile rechecked in the not too distant future. SALVAGE WORKER documented in this encounter Plan of Treatment Not on filedocumented as of this encounter Visit Diagnoses Diagnosis WPW (Huoza-Vprjqdsbi-Xylij syndrome) - P rimary Anomalous atrioventricular excitation documented in this encounter Care Teams Stock Clipper Relationship Specialty Start Date End Date Bethany Rahman MD PCP - General 10/29/[address] [place] [address] documented as of this encounter
--- OUTSIDE RECORDS SUMMARY | 2022-02-06 14:12 | XMS_ITS | Encounter Summary ---
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
--- OUTSIDE RECORDS SUMMARY | 2022-02-06 14:12 | XMS_ITS | Encounter Summary ---
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 R RUNNER documented in this encounter Plan of Treatment Not on filedocumented as of this encounter Visit Diagnoses Diagnosis Depression, unspecified depression type documented in this encounter Care Teams Cs Associate Relationship Specialty Start Date End Date Bethany Rahman MD PCP - General 10/29/[address] [place] [address] documented as of this encounter
--- OUTSIDE RECORDS SUMMARY | 2022-02-06 14:12 | XMS_ITS | Encounter Summary ---
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 MANUAL DIFFERENTIAL Routine 06/03/2019 11:28 Resu lts for this (AFTER VERIF OF AUTO) AM CDT proced ure are in the results section. CBC BRANCH OFFICE Routine 06/03/2019 11:28 Result s for this W/DIFF AM CDT procedure are i n the results section. BASIC METABOLIC PANEL Routine 06/03/2019 11:28 Pre-op exam Re sults for this AM CDT procedure are i n the results section. documented in this encounter Results Glomerular filtration rate (GFR) (06/03/2019 11:28 AM CDT) P athologist Signature GFR >60 06/03/2019 [facility] 1:41 PM CDT [facility] >60 06/03/2019 [facility] Taiwanese GFR 1:41 PM T [facility] Comment: GFR calculated from serum creatinine v alue Chronic Kidney Disease less than 60 mL/m in/1.73 m2 Kidney Failure less than 15 mL/min/1.73 m2 Note: effective 08/07/06 IDMS-Traceable MDRD Study Equation used. Specimen Anatomical Collection Method Collection Time Receive d Time (Source) Location / / Volume Laterality 06/03/2019 11:28 06/03/2019 AM CDT 11:28 AM CDT D. Derrick Rahman MD LAB BLOOD ORDERABLES Performing Organization Address City/State/ZIP Code Phon e Number [facility] [address] [place] [id number] Manual Differential (after verif of auto) (06/03/2019 11:28 AM CDT) Patholo gist Method Time Signature Manual PERFORMED 06/04/2019 [place] Differential 3:21 PM [facility] Neutrophils % 55.0 % 06/04/2019 [place] 3:30 PM [facility] Comment: THIS IS A CORRECTED RESULT. ??Disregard 89.0 from 06/04/19 at 15:21 Lymphocytes % 29.0 % 06/04/2019 3:30 PM CDT [facility] Comment: THIS IS A CORRECTED RESULT. ??Disregard 5.0 from 06/04/19 at 15:21 Monocytes % 11.0 % 06/04/2019 3:30 PM CDT [facility] Comment: THIS IS A CORRECTED RESULT. ??Disregard 5.0 from 06/04/19 at 15:21 Eosinophils % 4.00 % 06/04/2019 3:30 PM CDT [facility] Comment: THIS IS A CORRECTED RESULT. ??Disregard 0.00 from 06/04/19 at 15:21 Basophils % 1.0 % 06/04/2019 3:21 PM CDT [facility] Absolute Neutrophils 3.7 1.7 - 7.0 06/04/2019 3:30 PM CDT [facility] K/uL [facility] Comment: THIS IS A CORRECTED RESULT. ??Disregard 6.1 from 06/04/19 at 15:21 Lymphocytes Absolute 2.0 0.9 - 2.9 K/uL 06/04/2019 3:3 0 PM [facility] Comment: THIS IS A CORRECTED RESULT. ??Disregard 0.3 from 06/04/19 at 15:21 Monocytes Absolute 0.7 0.3 - 0.9 K/uL 06/04/2019 3:[address] [facility] Comment: THIS IS A CORRECTED RESULT. ??Disregard 0.3 from 06/04/19 at 15:21 Eosinophils Absolute 0.3 0.1 - 0.5 K/uL 06/04/2019 3:3 0 PM [facility] Comment: THIS IS A CORRECTED RESULT. ??Disregard 0.0 from 06/04/19 at 15:21 Basophils Absolute 0.1 0.0 - 0.1 K/uL 06/04/2019 3:21 PM [facility] Slide Review PERFORMED 06/04/2019 3:21 PM [facility] RBC Morphology NORMAL 06/04/2019 3:21 PM [facility] PLT Morphology ADEQUATE 06/04/2019 3:21 PM [facility] Total Counted 100 06/04/2019 3:21 PM [facility] Specimen Anatomical Collection Method Collection Time Receive d Time (Source) Location / / Volume Laterality 06/03/2019 11:28 06/04/2019 AM CDT 12:[address] [facility] - 05/23 3:30 PM CDT Called to result correction called to Enedina Flynn , , 15:35 06/04/2019 [id number] D. Derrick Rahman MD LAB BLOOD ORDERABLES Performing Organization Address City/State/ZIP Code Phon e Number [facility] [address] [place] [address] (ABNORMAL) CBC Branch Off w/Diff (06/03/2019 11:28 AM CDT) [facility] Method Time Signature WBC 6.8 3.5 - 10.5 06/03/2019 [facility] K/uL 12:47 PM CDT [place] RBC 5.27 4.30 - 06/03/2019 [facility] 5.70 M/uL 12:47 PM CDT [place] Hemoglobin 16.1 13.5 - 06/03/2019 [facility] 17.5 g/dL 12:47 PM CDT [place] Hematocrit 47.6 38.0 - 06/03/2019 [facility] 50.0 % 12:47 PM CDT [place] Platelets 328 150 - 450 06/03/2019 [facility] [place] K/uL 12:47 PM CDT [place] MCV 90.3 81.2 - 06/03/2019 [facility] 95.1 fL 12:47 PM CDT [place] MCH 30.6 26.0 - 06/03/2019 [facility] 32.0 pg 12:47 PM CDT [place] MCHC 33.8 32.0 - 06/03/2019 [facility] 36.0 g/dL 12:47 PM CDT [place] RDW 12.9 11.8 - 06/03/2019 [facility] 15.6 % 12:47 PM CDT [place] Lymphocytes % 20.0 18.0 - 06/03/2019 [facility] [place] 45.0 % 12:47 PM CDT [place] Mid-size Cells 18.2 (H) 3.3 - 10.1 06/03/2019 [facility] [place] % 12:47 PM CDT [place] Granulocytes/Travis 61.8 45.8 - 06/03/2019 [facility] [place] trophils 73.7 % 12:47 PM CDT [place] Lymphocytes 1.4 0.9 - 2.9 06/03/2019 [facility] [place] Absolute K/uL 12:47 PM CDT [place] MIDS Absolute 1.2 (H) 0.2 - 0.8 06/03/2019 [facility] [place] K/uL 12:47 PM CDT [place] Granulocytes/Travis 4.2 2.1 - 8.7 06/03/2019 [facility] [place] trophils K/uL 12:47 PM CDT [place] Absolute Specimen Anatomical Collection Method Collection Time Receive d Time (Source) Location / / Volume Laterality 06/03/2019 11:28 06/03/2019 AM CDT 11:40 AM CDT Bethany Rahman MD LAB BLOOD ORDERABLES Performing Organization Address City/[facility]/ZIP Code Phon e Number [facility] [address] [place] [id number] Basic metabolic panel (06/03/2019 11:28 AM CDT) P athologist Signature Sodium 142 135 - 145 06/03/2019 [facility] mmol/L 1:41 PM CDT [place] Potassium 3.9 3.5 - 5.1 06/03/2019 [facility] mmol/L 1:41 PM CDT [place] Comment: . Chloride 102 98 - 107 mmol/L 06/03/2019 1:41 PM CDT [facility] [place] Comment: . CO2 31 22 - 31 mmol/L 06/03/2019 1:41 PM CDT [facility] [place] Comment: . Creatinine 0.9 0.6 - 1.4 mg/dL 06/03/2019 1:41 PM CDT [facility] [place] Comment: . BUN 11 5 - 25 mg/dL 06/03/2019 1:41 PM CDT [facility] [place] Comment: . Glucose 96 70 - 100 mg/dL 06/03/2019 1:41 PM CDT [facility] [place] Calcium, Total,S 9.4 8.4 - 10.2 mg/dL 06/03/2019 1:41 PM CDT [facility] [place] Comment: . Fasting? Yes 06/03/2019 11:39 AM CDT [facility] [place] Specimen Anatomical Collection Method Collection Time Receive d Time (Source) Location / / Volume Laterality Blood 06/03/2019 11:28 06/03/2019 AM CDT 11:38 AM CDT Bethany Rahman MD LAB BLOOD ORDERABLES Performing Organization Address City/[facility]/ZIP Code Phon e Number [facility] [place] [address] [place] [address] documented in this encounter Visit Diagnoses Diagnosis Pre-op exam documented in this encounter Care Teams Hotel Housekeeper Relationship Specialty Start Date End Date Bethany Rahman MD PCP - General 10/29/[address] [place] [address] documented as of this encounter
--- OUTSIDE RECORDS SUMMARY | 2022-02-06 14:12 | XMS_ITS | Encounter Summary ---
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
--- OUTSIDE RECORDS SUMMARY | 2022-02-06 14:12 | XMS_ITS | Encounter Summary ---
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 Telephone Encounter - Bethany Rahman MD - 06/05/2019 1:14 PM CDT Let Fabiano know that I have sent to his pharmacy for the Zpak Telephone Encounter - Elida Flynn RN - 06/05/2019 12:46 PM CDT Please advise. Telephone Encounter - Do Samayoa - 06/05/2019 12:18 PM CDT Pt called per Dr. Rahman request stating he still has the cold/cough symptoms, and as discussed, would like an antibiotic sent to [facility]. Please call Pt at [phone] to advise. documented in this encounter Plan of Treatment Not on filedocumented as of this encounter Visit Diagnoses Diagnosis Cough - Primary documented in this encounter Care Teams Corrections Unit Supervisor Relationship Specialty Start Date End Date Bethany Rahman MD PCP - General 10/29/[address] [place] [address] documented as of this encounter
--- OUTSIDE RECORDS SUMMARY | 2022-02-06 14:12 | XMS_ITS | Encounter Summary ---
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
--- OUTSIDE RECORDS SUMMARY | 2022-02-06 14:12 | XMS_ITS | Encounter Summary ---
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 Telephone Encounter - Evangelina Flower RN - 08/14/2019 10:55 AM CDT Left message to call to schedule tonsillectomy Telephone Encounter - Naa Curry LPN - 08/06/2019 11:33 AM CDT Pt called back and he does want to move forward with surgery. He understand the need for a 5 day quarantine and 72 hr covid testing. Telephone Encounter - Evangelina Flower RN - 08/06/2019 11:01 AM CDT LMTC. Still interested in Tonsillectomy? documented in this encounter Plan of Treatment Not on filedocumented as of this encounter Visit Diagnoses Not on filedocumented in this encounter Care Teams Telemarketing Supervisor Relationship Specialty Start Date End Date Bethany Rahman MD PCP - General 10/29/[address] [place] [address] documented as of this encounter
--- OUTSIDE RECORDS SUMMARY | 2022-02-06 14:12 | XMS_ITS | Encounter Summary ---
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
--- OUTSIDE RECORDS SUMMARY | 2022-02-06 14:12 | XMS_ITS | Encounter Summary ---
:[address] 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 documented in this encounter Plan of Treatment Not on filedocumented as of this encounter Visit Diagnoses Not on filedocumented in this encounter Care Teams Household Refrigeration Mechanic Relationship Specialty Start Date End Date Bethany Rahman MD PCP - General 10/29/[address] [place] [address] documented as of this encounter
--- OUTSIDE RECORDS SUMMARY | 2022-02-06 14:12 | XMS_ITS | Encounter Summary ---
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
--- OUTSIDE RECORDS SUMMARY | 2022-02-06 14:12 | XMS_ITS | Encounter Summary ---
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 documented as of 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 encounter Last Filed Vital Signs Vital Sign Reading Time Taken Comments Blood Pressure 128/82 06/03/2019 10:05 AM CDT Pulse 112 06/03/2019 10:05 AM CDT Temperature 36.4 ??C (97.5 ??F) 06/03/2019 10:05 AM CDT Respiratory Rate 16 06/03/2019 10:05 AM CDT Oxygen Saturation 95% 06/03/2019 10:05 AM CDT Inhaled Oxygen Concentration - - Weight 109 kg (240 lb 3.2 oz) 06/03/2019 10:05 AM CDT Height 179.3 cm (5' 10.59) 06/03/2019 10:05 AM CDT Body Mass Index 33.89 06/03/2019 10:05 AM CDT documented in this encounter Progress Notes Elida Flynn RN - 06/03/2019 11:00 AM CDT Nurse Note Neck circumference 17.5 Bethany Rahman MD - 06/03/2019 11:00 AM CDT Estab - Pre-Op History and Physical Subjective Patient ID: Fabiano Schwartz is a 44 y.o. male. HPI the patient is here today for a PREOPERATIVE EVALUATION prior to elective surgical procedure tonsillectomy on 06/16/2019 done at [facility] by ENT Surgeon Dr. Lott. The pertinent review of system in regard to this procedure is that the patient has had significant issues with recurrent tonsillar infections sometimes even almost a chronic recurrent tonsillar pain and discomfort and evaluation large encrypted tonsillar tissue has been noted. 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 He had to be resuscitated he was hospitalized for a period of time up at [facility] and further evaluation included angiogram However at the time of the angiogram they could not induce any arrhythmias and as such the procedure was canceled. He currently does not have any evidence for Xjgmp-Dswklxjwa-Iqiqj on his current EKG he has had a full cardiac evaluation at [facility] and cardiology consultation with Dr. Stovall. Please refer to his note but he is given cardiac clearance for this particular procedure. He does ask that you continue to monitor the patient during recovery of his procedure to be sure that no unusual arrhythmias were to develop. 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 Review of Systems the patient is not currently having any particular problems with fevers chills night sweats coughs or colds No particular shortness of breath or chest pain or palpitations No GI or symptoms no diarrhea no constipation no blood in his stool no hemorrhoids No particular issues with frequency of urination or difficulty passing his urine No abdominal complaints appetite is good weight is stable Both of his feet are still currently recovering from surgical procedures and currently is walking with a cane because of his recent right foot surgery He has not had any particular problems or issues with anesthetic recovery. Objective Physical Exam is alert he appears comfortable his vital signs show the following Blood pressure 120/82 Pulse between 100 up to 110 Temp 97.5 Weight is 240 pounds with a BMI of 34 O2 sats 95% on room air Ears are clear free of erythema or cerumen Pupils equal conjunctiva clear Tongue is moist throat is clear tonsils are enlarged Neck no adenopathy no thyromegaly no carotid bruits Lungs are clear without wheeze rales or rhonchi Cardiac is regular rate and rhythm with a heart murmur Abdomen soft not tender no hepatosplenomegaly no masses No hernias are noted testes are distended Extremities joints and skin within relative limits except his right foot is currently in a foot support but there is no significant edema We did acquire a CBC and chemistry panel both are in the chart and both were normal Assessment/Plan Diagnoses and all orders for this visit: Pre-op exam - Basic metabolic panel; Future Assessment Preoperative evaluation prior to elective surgical procedure tonsillectomy. The plan at this time is to give the patient has surgical K to have this procedure done. documented in this encounter Plan of Treatment Not on filedocumented as of this encounter Results Basic metabolic panel (06/03/2019 11:28 AM CDT) P athologist Signature Sodium 142 135 - 145 06/03/2019 [facility] [place] mmol/L 1:41 PM CDT [place] Potassium 3.9 3.5 - 5.1 06/03/2019 [facility] [place] mmol/L 1:41 PM CDT [place] Comment: . Chloride 102 98 - 107 mmol/L 06/03/2019 1:41 PM CDT [facility] Comment: . CO2 31 22 - 31 mmol/L 06/03/2019 1:41 PM CDT [facility] [place] [place] Comment: . Creatinine 0.9 0.6 - 1.4 mg/dL 06/03/2019 1:41 PM CDT [facility] [place] ALEJANDRA Comment: . BUN 11 5 - 25 mg/dL 06/03/2019 1:41 PM CDT [facility] [place] REY Comment: . Glucose 96 70 - 100 mg/dL 06/03/2019 1:41 PM CDT C [place] A[place]JANDRA Calcium, Total,S 9.4 8.4 - 10.2 mg/dL 06/03/2019 1:41 PM CDT [facility] [place] ALEJANDRA Comment: . Fasting? Yes 06/03/2019 11:39 AM CDT [facility] CA NNON REY Specimen Anatomical Collection Method Collection Time Receive d Time (Source) Location / / Volume Laterality Blood 06/03/2019 11:28 06/03/2019 AM CDT 11:38 AM CDT Bethany Rahman MD LAB BLOOD ORDERABLES Performing Organization Address City/State/ZIP Code Phon e Number [facility] [place] [address] [place] [address] documented in this encounter Visit Diagnoses Diagnosis Pre-op exam - Primary documented in this encounter Care Teams Vision Care Associate Relationship Specialty Start Date End Date Bethany Rahman MD PCP - General 10/29/[address] [place] [address] documented as of this encounter
--- OUTSIDE RECORDS SUMMARY | 2022-02-06 14:12 | XMS_ITS | Encounter Summary ---
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 contacted us to let us know the patients differential will come across as a corrected report. This has been changed and the values you will see in the result are correct. documented in this encounter Plan of Treatment Not on filedocumented as of this encounter Visit Diagnoses Not on filedocumented in this encounter Care Teams Enroller Relationship Specialty Start Date End Date Bethany Rahman MD PCP - General 10/29/[address] [place] [address] documented as of this encounter
--- OUTSIDE RECORDS SUMMARY | 2022-02-06 14:13 | XMS_ITS | Encounter Summary ---
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
--- OUTSIDE RECORDS SUMMARY | 2022-02-06 14:13 | XMS_ITS | Encounter Summary ---
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 documented as of this encounter Last Filed Vital Signs Vital Sign Reading Time Taken Comments Blood Pressure 110/82 05/13/2019 10:35 AM FINANCIAL REPORTING CONSULTANT Pulse 108 05/13/2019 10:35 AM FINANCIAL REPORTING CONSULTANT Temperature 35.6 ??C (96.1 ??F) 05/13/2019 10:35 AM FINANCIAL REPORTING CONSULTANT Respiratory Rate 16 05/13/2019 10:35 AM FINANCIAL REPORTING CONSULTANT Oxygen Saturation 96% 05/13/2019 10:35 AM FINANCIAL REPORTING CONSULTANT Inhaled Oxygen Concentration - - Weight 109 kg (239 lb 6.7 oz) 05/13/2019 10:35 AM FINANCIAL REPORTING CONSULTANT Height 178 cm (5' 10.08) 05/13/2019 10:35 AM FINANCIAL REPORTING CONSULTANT Body Mass Index 34.28 05/13/2019 10:35 AM FINANCIAL REPORTING CONSULTANT documented in this encounter Progress Notes Bethany Rahman MD - 05/13/2019 11:00 AM CST Estab Patient Visit Subjective Patient ID: Fabiano Schwartz is a 44 y.o. male. HPI the patient is here today for a PREOPERATIVE EVALUATION prior to elective surgical procedure to correct a bunion on his right foot as well as I believe to remove a neuroma on the bottom of his foot. The procedure is planned for 05/18/2019 over at the [facility] and the surgeon's name is Dr.Steen sewell. The patient recently had a similar surgery for bunion repair on his left foot that was of his fifth metatarsal plus he had his toenail removed on the second digit at the same time. Patient did well through the surgery he is recovered quite well he is now bearing weight on that foot and is with ready to proceed with his second foot surgery. We will repeat his history though nothing is changed in the last 6 weeks. SMOKING quit at age 19 ALCOHOL social ALLEGIES not necessarily true allergies but again sensitivities to epinephrine and methylprednisolone and tramadol PAST SURGICAL HISTORY includes Vastectomy Coronary angiogram Recent left foot surgery Again the angiogram was secondary to a prior history of a supraventricular tachycardic event with a heart rate up to about 210. This was a result of smoking pot that was possibly laced with other illicit chemicals. He apparently did lose consciousness though is not aware as to whether or not he had edouard cardioverted. He was transferred up to [facility] and he was placed in Intensive Care at that time. He spent 3 days in the hospital at that time. This all took place back and I believe 1993 at that point in time there was some question about possible Friend Parkinson's White. 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 Recent EKG has not shown any evidence for ventricular arrhythmias or for possible Friend Parkinson's White. 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 FAMILY HISTORY Father at age 5 from acute myocardial infarction he was a heavy smoker his mother still living at age 60 without any particular health issues 2 sisters living and well3 Review of Systems patient states she has had no particular problems or issues in the last 6 weeks since his previous surgery. No fevers chills coughs or cold No headaches no change of hearing or vision No problems swallowing no weight changes appetite is good no particular issue with GI or problemsno constipation no diarrhea no blood in the stool no problems passing his urine No unusual lumps or bumps no significant pain issues No fluid retention. Objective Physical Exam is alert he appears comfortable his vital signs are stable Blood pressure 110/82 Pulse 100 regular rate and rhythm Temp 96.1 Weight 108.6 kg O2 sats 96% on room air BMI is 34.3 Ears are clear pupils are equal and reactive Tongue is moist throat is clear dentition in reasonable good shape Neck no adenopathy no thyromegaly no carotid bruits Cardiac is regular rate and rhythm with a heart murmur Abdomen soft not tender no hepatosplenomegaly no masses No appreciated hernias are noted Extremities joints and skin within relative normal limits The left foot surgical incision site and he has second digit toe both appear to be healing well postsurgery. A CBC was not felt to be required or repeated we did repeat his chemistry 8 panel which was normal. We have no reason to repeat an EKG at this time. Assessment/Plan Diagnoses and all orders for this visit: Pre-op evaluation - Basic metabolic panel; Future Assessment Preop evaluation prior to elective surgical procedure to be done on the right foot that includes a bunion procedure I believe obvious fifth metatarsal bone as well as I believe a removal of a neuroma. Secondary diagnosis is as dictated The plan at this time is the surgical okay for the procedure to be done under anesthesia of choice. NCIAL REPORTING CONSULTANT documented in this encounter Plan of Treatment Not on filedocumented as of this encounter Results (ABNORMAL) Basic metabolic panel (05/13/2019 11:13 AM FINANCIAL REPORTING CONSULTANT) P athologist Signature Sodium 142 135 - 145 05/13/2019 [facility] [place] mmol/L 11:29 AM FINANCIAL REPORTING CONSULTANT FALLS Potassium 3.6 3.5 - 5.1 05/13/2019 [facility] [place] mmol/L 11:29 AM FINANCIAL REPORTING CONSULTANT [place] Comment: . Chloride 102 98 - 107 mmol/L 05/13/2019 11:29 AM FINANCIAL REPORTING CONSULTANT [facility] [place] A[place]JANDRA Comment: . CO2 32 (H) 22 - 31 mmol/L 05/13/2019 11:29 AM FINANCIAL REPORTING CONSULTANT [place] Comment: . Creatinine 0.7 0.6 - 1.4 mg/dL 05/13/2019 11:29 AM FINANCIAL REPORTING CONSULTANT [facility] [place] ALEJANDRA Comment: . BUN 11 5 - 25 mg/dL 05/13/2019 11:29 AM FINANCIAL REPORTING CONSULTANT [facility] [place] ALEJANDRA Comment: . Glucose 100 70 - 100 mg/dL 05/13/2019 11:29 AM FINANCIAL REPORTING CONSULTANT [facility] [place] A[place]JANDR[place] Calcium, Total,S 9.2 8.4 - 10.2 mg/dL 05/13/2019 11:29 AM FINANCIAL REPORTING CONSULTANT [facility] [place] ALEJANDRA Comment: . Fasting? Yes 05/13/2019 11:15 AM FINANCIAL REPORTING CONSULTANT [facility] [place] ALEJANDRA Specimen Anatomical Collection Method Collection Time Receive d Time (Source) Location / / Volume Laterality Blood 05/13/2019 11:13 05/13/2019 AM FINANCIAL REPORTING CONSULTANT 11:15 AM FINANCIAL REPORTING CONSULTANT Bethany Rahman MD LAB BLOOD ORDERABLES Performing Organization Address City/State/ZIP Code Phon e Number [facility] [place] [address] [place] [id number] documented in this encounter Visit Diagnoses Diagnosis Pre-op evaluation - Primary documented in this encounter Care Teams Features Reporter Relationship Specialty Start Date End Date Bethany Rahman MD PCP - General 10/29/[address] [place] [phone] documented as of this encounter
--- OUTSIDE RECORDS SUMMARY | 2022-02-06 14:13 | XMS_ITS | Encounter Summary ---
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 documented in this encounter Results (ABNORMAL) Lipid panel (03/28/2018 8:50 AM LATHER APPRENTICE) athologist Signature Cholesterol 245 (A) 0 - 199 03/28/2018 [facility] mg/dL 1:25 PM LATHER APPRENTICE [facility] Comment: Recommended by National Cholesterol Education Program (ATP III) -------- Cholesterol Ranges -------- <200 ? Desirable 200-239 ? Borderline high >=240 ? High Triglycerides 358 (A) 0 - 149 mg/dL 03/28/2018 1:25 PM [facility] Comment: -------- TRIG Ranges -------- <150 ?Normal 150-199 ? Borderline high 200-499 ? High >=500 ? Very high HDL 35 (A) 40 - 60 mg/dL 03/28/2018 1:25 PM [facility] Comment: -------- HDL Ranges -------- <40 ?Low 40-59 ?Normal >=60 ? Optimal LDL Calculated 138 (A) 0 - 99 mg/dL 03/28/2018 1:25 PM [facility] Comment: -------- LDL Ranges -------- <100 ? Optimal 100-129 ?Near optimal/above op timal 130-159 ?Borderline high 160-189 ?High >=190 ?Very high Fasting? Yes 03/28/2018 8:54 AM [facility] Specimen Anatomical Collection Method Collection Time Receive d Time (Source) Location / / Volume Laterality Blood 03/28/2018 8:50 AM 9 LATHER APPRENTICE 12:49 PM LATHER APPRENTICE D. Derrick Rahman MD LAB BLOOD ORDERABLES Performing Organization Address City/State/ZIP Code Phon e Number [facility] [address] [place] [address] documented in this encounter Visit Diagnoses Diagnosis Screening cholesterol level Screening for lipoid disorders documented in this encounter Care Teams Branch Services Manager Relationship Specialty Start Date End Date Bethany Rahman MD PCP - General 10/29/[address] [place] [address] documented as of this encounter
--- OUTSIDE RECORDS SUMMARY | 2022-02-06 14:13 | XMS_ITS | Encounter Summary ---
:1975 Author Organization [facility] Address [address] [place] [address] Care Team Providers Name Role Phone Bethany Rahman MD Primary Care Provider Reason for Referral Consultation (Routine) - Closed Specialty Diagnoses / Procedures Referred By Contact Refer red To Contact Orthopedic Surgery Diagnoses Foot mass, right Bethany Rahman MD [address] [place] [address] Referral ID Status Reason Start Date Expiration Date Visits V isits Requested Authorized [id number] Closed Specialty 03/14/2018 03/14/2019 1 1 Services Required Scheduling Instructions Please call patient to schedule a consul t visit with Dr. Lott. Patient prefers a Saturday as he has every other Saturday off work. 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 Karl, MD Procedures PROCEDURE [address] [place] [address] [place], [place] [phone] Fax: Referral ID Status Reason Start Date Expiration Date Visits Requ ested Visits Authorized [id number] Closed 03/14/2018 09/10/2018 1 1 Encounter Details Date Type Department Care Team Description 03/14/2018 Procedure visit [facility]ethany Ruose Skin tag (Primary Dx); [address] [place] Foot mass, right [place] [address] [facility] [address] [address] [place] [phone] [place] [address] Social History Tobacco Use Types Packs/Day Years Used Date Former Smoker Smokeless Tobacco: Never Used Alcohol Use Standard Drinks/Week Comments Yes 0 (1 standard drink = 0.6 oz pure alcoho l) Sex Assigned at Date Recorded 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 documented as of this encounter Last Filed Vital Signs Vital Sign Reading Time Taken Comments Blood Pressure 142/96 03/14/2018 10:47 AM FINAL ASSEMBLER BOAT Pulse 88 03/14/2018 10:47 AM FINAL ASSEMBLER BOAT Temperature 35.2 ??C (95.3 ??F) 03/14/2018 10:47 AM FINAL ASSEMBLER BOAT Respiratory Rate 18 03/14/2018 10:47 AM FINAL ASSEMBLER BOAT Oxygen Saturation 96% 03/14/2018 10:47 AM FINAL ASSEMBLER BOAT Inhaled Oxygen Concentration - - Weight 109 kg (239 lb 10.2 oz) 03/14/2018 10:47 AM FINAL ASSEMBLER BOAT Height 180 cm (5' 10.87) 03/14/2018 10:47 AM FINAL ASSEMBLER BOAT Body Mass Index 33.55 03/14/2018 10:47 AM FINAL ASSEMBLER BOAT documented in this encounter Progress Notes Bethany Rahman MD - 03/14/2018 10:40 AM CST Estab Patient Visit Subjective Patient ID: Fabiano Schwartz is a 43 y.o. male. HPI Patient is here today for a couple different reasons. The patient had a couple of small skin tags on the middle part of his anterior neck that rub againsthis shirt collar when the button his collar and then he had a small sebaceous lesion on the right part of his nose that he wanted also cauterized. He also has noticed a small mass on the bottom of his foot that has had for about a year does not get a larger but its presence is there and it causes him some pain when he walks especially when he is on his feet for quite a while. Review of Systems Objective Physical Exam He is alert he is cooperative his vital signs are stable except for little elevation of blood pressure today usually is better controlled and that is not any blood pressure meds this is something we will be watching and if he continues to be in the higher range certainly medications would be indicated. On the anterior portion of his neck just in front of the trachea there are 2 small 1-2 mm size skin tags and then on the right part of his lower nose there is a small 2 mm sebaceous cystlike structure that was also present. On the bottom of his foot there is a half a centimeter slightly mobile mass that is present in the middle part of the plantar surface but little closer to the second metatarsal bone area that slightly mobile but fixed to the fascial tissues underneath. Assessment/Plan Diagnoses and all orders for this visit: Skin tag - lidocaine 1% (XYLOCAINE) 1 % injection 30 mg; 3 mL (30 mg total) by Infiltration route 1 (one) time Foot mass, right - X-ray Foot 3+ Views Right; Future Procedures After consent was given the patient was taken back to the treatment room and we prepped both areas as described on the neck and the nasal area with alcohol wipe and injected about a total cc of 1 cc oflidocaine and then all 3 of these areas were just cauterized no excision was necessary. Again assessment #1 he has 2 small skin tags on the anterior portion of the middle part of his neck as well as a very small sebaceous type cyst on the right nasal area and the plan was there cautery asdone. In regard to the foot mass refers to x-ray the x-ray did not show anything significant. We then discussed with the patient further evaluation and since this does bother him when he walks we will refer him down to [facility] for our orthopedic ankle legal recovery specialist Dr. Ambrocio to take a look at in consult with. L ASSEMBLER BOAT documented in this encounter Plan of Treatment Scheduled Referrals Name Type Priority Associated Order Schedule Diagnoses Ambulatory referral Outpatient Referral Routine Foot mass, rig ht Ordered: to Orthopedic 03/14/2018 Surgery documented as of this encounter Procedures Procedure Name Priority Date/Time Associated Diagnosis Comme nts XR FOOT 3+ VIEWS Routine 03/14/2018 11:41 AM Foot mass, right Results for this RIGHT FINAL ASSEMBLER BOAT procedure are i n the results section. documented in this encounter Results X-ray Foot 3+ Views Right (03/14/2018 11:41 AM FINAL ASSEMBLER BOAT) Anatomical Region Laterality Modality Lower Extremities, Foot Right Radiographic Apple ging Specimen (Source) Anatomical Collection Method Collection Time Re ceived Time Location / / Volume Laterality 03/14/2018 11:41 AM FINAL ASSEMBLER BOAT Impressions 03/14/2018 2:20 PM FINAL ASSEMBLER BOAT IMPRESSION: FOOT COMPLETE RIGHT MIN 3 VIEWS No perceptible nodule. ??No erosion or s oft tissue calcification. ??No fracture, dislocation, or lytic or blast ic lesion. ??Joint spaces are within normal limits. ??Small accessory ossicle is again seen posteromedial to the navicular. ??There is stable mild posterior calcaneal spurring. ??If there is a clinical need for additional imaging, MRI could be considered. Narrative 03/14/2018 2:20 PM FINAL ASSEMBLER BOAT INDICATION: small nodule mid instep COMPARISON: Right foot radiographs May 28, 2014 Procedure Note Cris Spence MD - 03/14/2018 INDICATION: small nodule mid instep COMPARISON: Right foot radiographs May 28, 2014 IMPRESSION: FOOT COMPLETE RIGHT MIN 3 VIEWS No perceptible nodule. No erosion or sof t tissue calcification. No fracture, dislocation, or lytic or blast ic lesion. Joint spaces are within normal limits. Small accessory os sicle is again seen posteromedial to the navicular. There is stable mild p osterior calcaneal spurring. If there is a clinical need for additional imaging, MRI could be considered. Bethany Rahman MD IMG XR PROCEDURES documented in this encounter Visit Diagnoses Diagnosis Skin tag - Primary Unspecified hypertrophic and atrophic co ndition of skin Foot mass, right documented in this encounter Administered Medications Inactive Administered Medications - up to 3 most recent administrations Medication Order MAR Action Action Date Dose Rate Site lidocaine 1% (XYLOCAINE) 1 % Given 03/14/2018 1:36 PM FINAL ASSEMBLER BOAT 30 mg injection 30 mg 30 mg (3 mL), Infiltration, Once, On Sat03/14/18 at 1200, For 1 dose documented in this encounter Care Teams Veneer Stock Grader Relationship Specialty Start Date End Date Bethany Rahman MD PCP - General 10/29/[address] [place] [address] documented as of this encounter
--- OUTSIDE RECORDS SUMMARY | 2022-02-06 14:13 | XMS_ITS | Encounter Summary ---
:[address] 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 BASIC METABOLIC Routine 05/13/2019 11:13 AM Pre-op evaluation Results for this PANEL LUMBER BEARER procedure are i n the results section. documented in this encounter Results Glomerular filtration rate (GFR) (05/13/2019 11:13 AM LUMBER BEARER) P athologist Signature GFR >60 05/13/2019 [facility] 11:29 AM [facility] >60 05/13/2019 [facility] GFR 11:29 AM [facility] Comment: GFR calculated from serum creatinine v alue Chronic Kidney Disease less than 60 mL/m in/1.73 m2 Kidney Failure less than 15 mL/min/1.73 m2 Note: effective 08/07/06 IDMS-Traceable MDRD Study Equation used. Specimen Anatomical Collection Method Collection Time Receive d Time (Source) Location / / Volume Laterality 05/13/2019 11:13 05/13/2019 AM LUMBER BEARER 11:13 AM LUMBER BEARER Bethany Rahman MD LAB BLOOD ORDERABLES Performing Organization Address City/[facility]/ZIP Code Phon e Number [facility] [address] [place] [address] (ABNORMAL) Basic metabolic panel (05/13/2019 11:13 AM LUMBER BEARER) P athologist Signature Sodium 142 135 - 145 05/13/2019 [facility] mmol/L 11:29 AM [facility] [place] Potassium 3.6 3.5 - 5.1 05/13/2019 [facility] mmol/L 11:29 AM [facility] [place] Comment: . Chloride 102 98 - 107 mmol/L 05/13/2019 11:29 AM LUMBER BEARER [facility] [place] Comment: . CO2 32 (H) 22 - 31 mmol/L 05/13/2019 11:29 AM LUMBER BEARER [facility] [place] Comment: . Creatinine 0.7 0.6 - 1.4 mg/dL 05/13/2019 11:29 AM LUMBER BEARER [facility] [place] Comment: . BUN 11 5 - 25 mg/dL 05/13/2019 11:29 AM LUMBER BEARER [facility] [place] Comment: . Glucose 100 70 - 100 mg/dL 05/13/2019 11:29 AM [facility]UM[facility] [place] Calcium, Total,S 9.2 8.4 - 10.2 mg/dL 05/13/2019 11:29 AM LUMBER BEARER [facility] [place] Comment: . Fasting? Yes 05/13/2019 11:15 AM LUMBER BEARER [facility] [place] Specimen Anatomical Collection Method Collection Time Receive d Time (Source) Location / / Volume Laterality Blood 05/13/2019 11:13 05/13/2019 AM LUMBER BEARER 11:15 AM LUMBER BEARER Bethany Rahman MD LAB BLOOD ORDERABLES Performing Organization Address City/State/ZIP Code Phon e Number [facility] [place] [address] [place] [address] documented in this encounter Visit Diagnoses Diagnosis Pre-op evaluation documented in this encounter Care Teams Civil Engineering Professional Relationship Specialty Start Date End Date Bethany Rahman MD PCP - General 10/29/[address] [place] [address] documented as of this encounter
--- OUTSIDE RECORDS SUMMARY | 2022-02-06 14:13 | XMS_ITS | Encounter Summary ---
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 MILL OPERATOR Telephone Encounter - Luciana Munoz LPN - 03/23/2019 8:21 AM CST Please fax MILL OPERATOR Telephone Encounter - Luciana Munoz LPN - 03/23/2019 8:19 AM CST Please fax a copy of my pre-op evaluation along with his recent labs and a copy of the EKG to the [facility] MILL OPERATOR documented in this encounter Plan of Treatment Not on filedocumented as of this encounter Visit Diagnoses Not on filedocumented in this encounter Care Teams Manufacturing Shift Supervisor Relationship Specialty Start Date End Date Bethany Rahman MD PCP - General 10/29/[address] [place] [address] documented as of this encounter
--- OUTSIDE RECORDS SUMMARY | 2022-02-06 14:13 | XMS_ITS | Encounter Summary ---
:1975 Author Organization [facility] Address [address] [place] [address] Care Team Providers Name Role Phone Bethany Rahman MD Primary Care Provider Reason for Visit Reason Comments Follow-up medications Encounter Details Date Type Department Care Team Description 03/28/2018 Office Visit [place] Rouse Depression, unspecified depr ession type (Primary Dx); [address] [place] Screening cholesterol level; [place], [place] [address] [phone] [place] [address] Social History Tobacco Use Types Packs/Day Years [...] at Date Recorded 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 of this encounter Last Filed Vital Signs Vital Sign Reading Time Taken Comments Blood Pressure 134/90 03/28/2018 8:07 AM SIZE WORKER Pulse 80 03/28/2018 8:07 AM SIZE WORKER Temperature 36.5 ??C (97.7 ??F) 03/28/2018 8:07 AM SIZE WORKER Respiratory Rate 16 03/28/2018 8:07 AM SIZE WORKER Oxygen Saturation - - Inhaled Oxygen Concentration - - Weight 111 kg (244 lb 0.8 oz) 03/28/2018 8:07 AM SIZE WORKER Height 181 cm (5' 11.26) 03/28/2018 8:07 AM SIZE WORKER Body Mass Index 33.79 03/28/2018 8:07 AM SIZE WORKER documented in this encounter Progress Notes Bethany Rahman MD - 03/28/2018 8:00 AM CST Estab Patient Visit Subjective Patient ID: Fabiano Schwartz is a 43 y.o. male. HPI Patient is here today for review of his medications. Just for review Cigarette smoking not for 17 years Alcohol use is fairly minimal social Allergies are none Medications include the following duloxetine a total of 90 mg a day. Has been on this for several years. This is primarily for anxiety sometimes a little panic little bit of depression as well as peripheral neuropathy. Is having no side effects of medication is covered by his insurance quite well and he does not wish to change his dose at this time because it is working well for him. He also has Flexeril he takes periodically for muscle spasms He would also like to start back on gabapentin for peripheral neuropathy. His peripheral neuropathy of undetermined origin though I suspect it is coming from his lumbar spine as he has known degenerative joint disease of his back. He has not had any back surgery however Therefore we discussed gabapentin how to use it he did have a little side effect to it previously with some anxiety type symptoms but it also helped his neuropathy quite a bit and is willing to try it again. Therefore we will start gabapentin 100 mg 3 times a day and then After 10 days no side effectsof up to 200 3 times per day and will gradually increase him until he either has side effects or positive benefits. 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 They only told him that he should not do a lot of frequent running or getting his heart rate up to significantly. 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 The patient does not really have any particular questions or concerns at that time other than for his anxiety depression and peripheral neuropathy. He does have 3 areas on his body left upper arm right lower extremity in the middle thigh portion of3 small lipomas have been unchanged We did discuss with him the need for cholesterol test as he is father has had heart disease and diedfrom it he agrees to have that done today. Review of Systems Objective Physical Exam He is alert he is comfortable in appearance his vital signs are stable blood pressure little bit elevated 134/90 the arm is better controlled and that Pupils are equal Tongue is moist throat is clear neck Lungs are clear no wheeze rales or rhonchi Cardiac is regular rate and rhythm without heart murmur Extremities have no particular edema In the left upper extremity just below the shoulder is got an approximate 1-1/2-2cm mobile nontenderlipoma On the inner aspect of his right groin he is a very small about half a centimeter more like a cyst size lump and he also has an outside aspect of the right upper thigh about 1-2 cm lipoma The overall assessment is as follows 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 Assessment/Plan Diagnoses and all orders for this visit: Depression, unspecified depression type - DULoxetine (CYMBALTA) [address] capsule; Take one a day for anxiety/depression/pain - DULoxetine (CYMBALTA) [address] capsule; Take one a day for anxiety/depression/pain Screening cholesterol level - Lipid panel; Future Neuropathy - gabapentin (NEURONTIN) 100 MG capsule; Take ONE three times a day for the first ten days and then increase to TWO pills three times per day for neuropathy Peripheral neuropathy probably stemming from degenerative joint disease of his back Several small lipomas that have been unchanged no concern The plan at this time is renewal of medication for Cymbalta and initiate gabapentin therapy and get a cholesterol level. WORKER documented in this encounter Plan of Treatment Not on filedocumented as of this encounter Results (ABNORMAL) Lipid panel (03/28/2018 8:50 AM SIZE WORKER) athologist Signature Cholesterol 245 (A) 0 - 199 03/28/2018 [facility] mg/dL 1:25 PM [facility] Comment: Recommended by National Cholesterol Education Program (ATP III) -------- Cholesterol Ranges -------- <200 ? Desirable 200-239 ? Borderline high >=240 ? High Triglycerides 358 (A) 0 - 149 mg/dL 03/28/2018 1:25 PM [facility] Comment: -------- TRIG Ranges -------- <150 ?Normal 150-199 ? Borderline high 200-499 ? High >=500 ? Very high HDL 35 (A) 40 - 60 mg/dL 03/28/2018 1:25 PM [facility] Comment: -------- HDL Ranges -------- <40 ?Low 40-59 ?Normal >=60 ? Optimal LDL Calculated 138 (A) 0 - 99 mg/dL 03/28/2018 1:25 PM [facility] Comment: -------- LDL Ranges -------- <100 ? Optimal 100-129 ?Near optimal/above op timal 130-159 ?Borderline high 160-189 ?High >=190 ?Very high Fasting? Yes 03/28/2018 8:54 AM [facility] Specimen Anatomical Collection Method Collection Time Receive d Time (Source) Location / / Volume Laterality Blood 03/28/2018 8:50 AM 9 SIZE WORKER 12:49 PM SIZE WORKER Bethany Rahman MD LAB BLOOD ORDERABLES Performing Organization Address City/State/ZIP Code Phon e Number [facility] [address] [place] [address] documented in this encounter Visit Diagnoses Diagnosis Depression, unspecified depression type - Primary Screening cholesterol level Screening for lipoid disorders Neuropathy Mononeuritis of unspecified site documented in this encounter Care Teams Oxygen System Tester Relationship Specialty Start Date End Date Bethany Rahman MD PCP - General 10/29/[address] [place] [address] documented as of this encounter
--- OUTSIDE RECORDS SUMMARY | 2022-02-06 14:13 | XMS_ITS | Encounter Summary ---
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 Telephone Encounter - Do Samay[place] - 10/22/2018 4:24 PM CDT Pt called stating he was unable to hand picker [facility], Please call Pt at [phone] to advise. documented in this encounter Plan of Treatment Not on filedocumented as of this encounter Visit Diagnoses Diagnosis Neuropathy Mononeuritis of unspecified site documented in this encounter Care Teams Extract Operator Relationship Specialty Start Date End Date Bethany Rahman MD PCP - General 10/29/[address] [place] [address] documented as of this encounter
--- OUTSIDE RECORDS SUMMARY | 2022-02-06 14:13 | XMS_ITS | Encounter Summary ---
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
--- OUTSIDE RECORDS SUMMARY | 2022-02-06 14:13 | XMS_ITS | Encounter Summary ---
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 TOR USE ASSISTANT Telephone Encounter - Elida Flynn RN - 04/14/2018 4:53 PM CST Patient called to report that he is going to take his Gabapentin Rx differently because his insurance doesn't cover the 180 tablets a month but they will cover the 90 tablets. He said instead of taking2 tablets three times day he said he will take 2 tablets twice daily. He reports he has been doing this and it has worked well so far. Please advise if this will be okay? TOR USE ASSISTANT Telephone Encounter - Paula Bañuelos - 04/14/2018 4:41 PM CST Patient would like to speak to a nurse about Gabapentin RX. TOR USE ASSISTANT documented in this encounter Plan of Treatment Not on filedocumented as of this encounter Visit Diagnoses Not on filedocumented in this encounter Care Teams Assembly Loader Relationship Specialty Start Date End Date Bethany Rahman MD PCP - General 10/29/[address] [place] [address] documented as of this encounter
--- OUTSIDE RECORDS SUMMARY | 2022-02-06 14:13 | XMS_ITS | Encounter Summary ---
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 Please be sure to have patient sign a release for [facility]. Anesthesia will want to review prior cardiac records from there. Thank you GER TESTING documented in this encounter Plan of Treatment Not on filedocumented as of this encounter Visit Diagnoses Not on filedocumented in this encounter Care Teams Microbiology Supervisor Relationship Specialty Start Date End Date Bethany Rahman MD PCP - General 10/29/[address] [place] [address] documented as of this encounter
--- OUTSIDE RECORDS SUMMARY | 2022-02-06 14:13 | XMS_ITS | Encounter Summary ---
:1975 Author Organization [facility] Address [address] [place] [address] Care Team Providers Name Role Phone Bethany Rahman MD Primary Care Provider Reason for Visit Reason Comments Pre-op Exam DOS 03/30/2018 foot surgery No rthfield Encounter Details Date Type Department Care Team Description 03/20/2019 Consult Bethany Cline, Pre-op evaluation (Primary D x); [address] MD Bunion of great toe of left foot; [place], [place] [address] [place] Essential hypertension; [phone] [place], [place] Mixed hyper lipidemia; [address] Neuropathy; [phone] Depression, uns pecified depression type (Work) Social History Tobacco Use Types Packs/Day Years [...] at Date Recorded 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 Last Filed Vital Signs Vital Sign Reading Time Taken Comments Blood Pressure 122/84 03/20/2019 9:02 AM WALLPAPER PRINTER HELPER Pulse 80 03/20/2019 9:02 AM WALLPAPER PRINTER HELPER Temperature 36.7 ??C (98 ??F) 03/20/2019 9:02 AM WALLPAPER PRINTER HELPER Respiratory Rate 16 03/20/2019 9:02 AM WALLPAPER PRINTER HELPER Oxygen Saturation 98% 03/20/2019 9:02 AM WALLPAPER PRINTER HELPER Inhaled Oxygen Concentration - - Weight 105 kg (231 lb 7.7 oz) 03/20/2019 9:02 AM WALLPAPER PRINTER HELPER Height 181 cm (5' 11.26) 03/20/2019 9:02 AM WALLPAPER PRINTER HELPER Body Mass Index 32.05 03/20/2019 9:02 AM WALLPAPER PRINTER HELPER documented in this encounter Progress Notes Bethany Rahman MD - 03/20/2019 9:00 AM CST Estab - Pre-Op History and Physical Subjective Patient ID: Fabiano Schwartz is a 44 y.o. male. HPI the patient is here today for PRE-OPERATIVE EVALUATION prior to elective surgical procedure to correct a left bunion and bone spur. The date of surgery is 03/30/2019 the surgeon's name is Dr. Gonzales and the surgery will be at the [facility]. The patient's history as it pertains to his surgical procedure is that he has bilateral foot bunionswith some bone spur formation and on the right foot he also has a fibroma. This causes pain and discomfort with walking that does affect his gait and as such the surgery has been scheduled to help correct these problems. The patient understands and will be off work for a total of almost 3 months but he also have surgery on the left foot first and after 6 weeks of recovery he will have the second surgical procedure. The patient's pertinent MEDICAL HISTORY includes the following SMOKING quit at age 19 ALCOHOL social ALLERGIES are not true allergies but just sensitivities to epinephrine and methylprednisolone and tramadol PAST SURGICAL HISTORY Vasectomy Coronary angiogram that we will discuss below Interestingly when the patient was at age 19 he developed a supraventricular tachycardia with a heart rate up to about 210 as a result of smoking pot that was possibly laced with other illicit chemicals. He was evaluated in an emergency room he had an SVT that required a cardioversion procedure probably secondary to a marked drop of blood pressures I do not have those records. After he was cardioverted he then went up to [facility] where he was apparently observed and then was discharged. There was some question as to whether or not he actually had Friend Parkinson's White syndrome. In the year 1999 he had a catheterization procedure at [facility] with the stated attempt to ablatea presumed accessory tract however they were unable to reproduce any aberrant conduction and therefore no ablation procedure occurred. He has had no symptoms or recurrence of any tachycardic events since the event at age 19. There is also some question as to whether or not this was actually WPW because an updated EKG has no evidence for this. 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 Other hospitalizations none except for the event of his tachycardic event. SOCIAL HISTORY he has been for 18 years and he has 2 biological children ages 17 and 15. 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 FAMILY HISTORY Father at age 53 from acute myocardial infarction he was a heavy smoker his mother is still living at age 60 without any particular health issues 2 sisters living and well Review of Systems he has no current particular issues as far as review of systems No fevers chills coughs or colds No shortness of breath or chest pain or palpitations No appetite changes no weight loss no change of bowel patterns no diarrhea no constipation no blood in the stool No particular issues passing his urine no difficulty in voiding. He has no unusual lumps or bumps or skin changes. No fluid retention no varicosities Some low back pain that is related to his degenerative joint disease but nothing that limits him. Objective Physical Exam he is alert he appears comfortable his vital signs show the following Blood pressure 122/84 Pulse is 80 regular rate and rhythm Temp is 98 Weight 105 kg O2 sats 98% BMI is 32.1 Ears are clear free of erythema or cerumen Pupils equal conjunctiva clear Tongue is moist throat is clear dentition in good shape Neck no adenopathy no thyromegaly no carotid bruits Lungs are clear without wheeze rales or rhonchi Cardiac is regular rate and rhythm with a heart murmur Abdomen soft nontender no hepatosplenomegaly no masses Testes are descended no masses no hernias are noted Extremities have no fluid retention no varicosities A CBC chemistry 8 were done and will be included in this report EKG was done showing normal sinus rhythm no acute changes Chest x-ray is not felt to be needed he does not smoke lungs are clear O2 sats on room air 98% Assessment/Plan Diagnoses and all orders for this visit: Pre-op evaluation - ECG 12 lead - Basic metabolic panel; Future Bunion of great toe of left foot Essential hypertension Mixed hyperlipidemia Neuropathy Depression, unspecified depression type The overall ASSESSMENT is preoperative evaluation prior to elective surgical procedure to correct a bunion on his left great toe. And the PLAN at this time is to give the patient the surgical okay to have this procedure done underanesthesia of choices. PAPER PRINTER HELPER documented in this encounter Plan of Treatment Not on filedocumented as of this encounter Procedures Procedure Name Priority Date/Time Associated Diagnosis Comme nts ECG 12-LEAD Routine 03/20/2019 12:00 AM Pre-op evaluation Res ults for this WALLPAPER PRINTER HELPER procedure are i n the results section . documented in this encounter Results (ABNORMAL) Basic metabolic panel (03/20/2019 9:52 AM WALLPAPER PRINTER HELPER) P athologist Signature Sodium 140 135 - 145 03/20/2019 [facility] mmol/L 10:54 AM WALLPAPER PRINTER HELPER [place] Potassium 4.3 3.5 - 5.1 03/20/2019 [facility] mmol/L 10:54 AM WALLPAPER PRINTER HELPER [place] Comment: . Chloride 106 98 - 107 mmol/L 03/20/2019 10:54 AM [facility] Comment: . CO2 31 22 - 31 mmol/L 03/20/2019 10:54 AM WALLPAPER PRINTER HELPER KARL[place] LE Comment: . Creatinine 0.6 0.6 - 1.4 mg/dL 03/20/2019 10:54 AM WALLPAPER PRINTER HELPER [facility] Comment: . BUN 12 5 - 25 mg/dL 03/20/2019 10:54 AM WALLPAPER PRINTER HELPER C [place] REY Comment: . Glucose 106 (H) 70 - 100 mg/dL 03/20/2019 10:54 AM [facility] PAULA LE WALLPAPER PRINTER HELPER Calcium, Total,S 9.4 8.4 - 10.2 mg/dL 03/20/2019 10:54 AM [facility] [place] WALLPAPER PRINTER HELPER Comment: . Fasting? Unknown 03/20/2019 10:53 AM [facility] G[facility]ON REY Specimen Anatomical Collection Method Collection Time Receive d Time (Source) Location / / Volume Laterality Blood 03/20/2019 9:52 AM 9 9:52 WALLPAPER PRINTER HELPER AM WALLPAPER PRINTER HELPER Bethany Rahman MD LAB BLOOD ORDERABLES Performing Organization Address City/State/ZIP Code Phon e Number [facility] [place] [place] [address] [place] [address] ECG 12 lead (03/20/2019 12:00 AM WALLPAPER PRINTER HELPER) Narrative 03/20/2019 12:00 AM WALLPAPER PRINTER HELPER This result has an attachment that is no t available. ECG collected at the [facility] and scanned to cardiology for interpretation. Bethany Rahman MD ECG ORDERABLES documented in this encounter Visit Diagnoses Diagnosis Pre-op evaluation - Primary Bunion of great toe of left foot Bunion Essential hypertension Unspecified essential hypertension Mixed hyperlipidemia Neuropathy Mononeuritis of unspecified site Depression, unspecified depression type documented in this encounter Care Teams Consumer Insight Analyst Relationship Specialty Start Date End Date Bethany Rahman MD PCP - General 10/29/[address] [place] [address] documented as of this encounter
--- OUTSIDE RECORDS SUMMARY | 2022-02-06 14:13 | XMS_ITS | Encounter Summary ---
:1975 Author Organization [facility] Address [address] [place] [address] Care Team Providers Name Role Phone Bethany Rahman MD Primary Care Provider Reason for Visit Reason Comments Med Refill Encounter Details Date Type Department Care Team Description 03/19/2018 Refill [place] Bethany Rahman MD [address] [facility] 20 1705 [facility] 20 [place], [place] [address] [place], [place] [phone] (Wo rk) Social History Tobacco Use Types Packs/Day Years Used Date Former Smoker Smokeless Tobacco: Never Used Alcohol Use Standard Drinks/Week Comments Yes 0 (1 standard drink = 0.6 oz pure alcoho l) Sex Assigned at Date Recorded 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 ANIC'S ASSISTANT Telephone Encounter - Bethany Rahman MD - 03/24/2018 2:50 PM CST I am assuming that Fabiano has enough meds to get through till his appointment on Saturday. If not let me know. ANIC'S ASSISTANT Telephone Encounter - Paula Bañuelos - 03/24/2018 12:31 PM CST Patient scheduled appointment for Saturday03/28/18 ANIC'S ASSISTANT Telephone Encounter - Radha Killian LPN - 03/24/2018 10:58 AM MECHANIC'S ASSISTANT Last Rx Cymbalta (duloxetine) 30 mg delayed release capsule, oral, See Instrc, See Instrc Last Prescribed: 05/10/2017 Prescriber: Derrick Rahman Pharmacy: [facility] Quantity: 270 Refills: 1 Reason: anxiety/depression/pain Instructions: Take one in the AM and two in the PM Chronic: Y Med/dx has not been reviewed in the last year No upcoming appointment scheduled ANIC'S ASSISTANT documented in this encounter Plan of Treatment Not on filedocumented as of this encounter Visit Diagnoses Not on filedocumented in this encounter Additional Health Concerns Infection Onset Date Last Indicated Resolved Time COVID-19 Rule Out 04/12/2021 04/12/2021 04/12/2021 10: 41 PM MECHANIC'S ASSISTANT documented as of this encounter Care Teams Prep Manager Relationship Specialty Start Date End Date Bethany Rahman MD PCP - General 10/29/[address] [place] [address] documented as of this encounter
--- OUTSIDE RECORDS SUMMARY | 2022-02-06 14:13 | XMS_ITS | Encounter Summary ---
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 [facility] correct METRIST OWNER Telephone Encounter - Cyndi Castro MA - 04/30/2018 8:19 AM CST Call Bradley and let him know that I have sent to his pharmacy in [facility] for an Rx for Gabapentin 300 mg take one a day. ??If he has changed his pharmacy to [facility] in [place] then let me know and I will send the Rx there. ??If this is the case then call his pharmacy in [facility] and cancel this Rx and then go into his chart and make sure that [facility] is listed as his primary pharmacy. ??Let me know. (Routing comment) METRIST OWNER Telephone Encounter - Cyndi Castro MA - 04/29/2018 4:14 PM CST Patient states he is out of his gabapentin. He was taking 200 mg twice a day. Every 12 hours. Patient thinks 300 mg once a day would work better. When on the 200 mg twice a day there have been a few times he still felt anxious. Please advise. Helped with the neuropathy a bit. METRIST OWNER Telephone Encounter - Lu Karimi RN - 04/29/2018 2:36 PM CST Senior Oracle Database Developer was verbally made aware patient returned call. A message was left for patient to call back. METRIST OWNER Telephone Encounter - Lu Karimi RN - 04/29/2018 1:38 PM CST LMTCB METRIST OWNER Telephone Encounter - Paula Bañuelos - 04/29/2018 12:20 PM CST Patient would like to speak to a nurse about his Gabapentin RX. METRIST OWNER documented in this encounter Plan of Treatment Not on filedocumented as of this encounter Visit Diagnoses Diagnosis Depression, unspecified depression type Neuropathy Mononeuritis of unspecified site documented in this encounter Care Teams Head Inspector And Center Marker Relationship Specialty Start Date End Date Bethany Rahman MD PCP - General 10/29/[address] [place] [address] documented as of this encounter
--- OUTSIDE RECORDS SUMMARY | 2022-02-06 14:13 | XMS_ITS | Encounter Summary ---
:1975 Author Organization [facility] Address [address] [place] [address] Care Team Providers Name Role Phone Bethany Rahman MD Primary Care Provider Reason for Referral Consultation (Routine) - Closed Specialty Diagnoses / Procedures Referred By Contact Refer red To Contact Diagnoses Chronic right shoulder pain Bethany Rahman MD [facility] [address] [facility] [address] [place] [address] [place] [phone] Referral ID Status Reason Start Date Expiration Date Visits Requ ested Visits Authorized [id number] Closed 04/28/2019 04/28/2020 1 1 CTOR OF RECRUITMENT AND ADMISSIONS Reason for Visit Reason Onset Date Comments referral 04/28/2019 Encounter Details Date Type Department Care Team Description 04/28/2019 [place]phone [place] referral [address] [facility] [address] [place], [place] [address] [place], [place] [phone] (Wo rk) Social History Tobacco Use Types [...] at Date Recorded 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 CTOR OF RECRUITMENT AND ADMISSIONS Telephone Encounter - Elida Flynn RN - 04/28/2019 1:36 PM CST Please fax referral to Fax # provided. CTOR OF RECRUITMENT AND ADMISSIONS Telephone Encounter - Elida Flynn RN - 04/28/2019 1:11 PM CST Orthopedics in [place] does see patients and either of their providers; Dr. Terry or Dr. Miller see patients with shoulder concerns. Fax # is [phone] CTOR OF RECRUITMENT AND ADMISSIONS Telephone Encounter - Elida Flynn RN - 04/28/2019 1:08 PM CST ----- Message from Bethany Rahman MD sent at 04/28/2019 11:35 AM DIRECTOR OF RECRUITMENT AND ADMISSIONS ----- We will be referring Fabiano to an Orthopedics at the [facility]. Can you call them and see which Orthopedics currently are seeing patients at the [facility] and which if any of them does [place] work. Let me know so that I can place the referral. CTOR OF RECRUITMENT AND ADMISSIONS documented in this encounter Plan of Treatment Scheduled Referrals Name Type Priority Associated Order Schedule Diagnoses Ambulatory External Outpatient Referral Routine Chronic right Ordered: Referral shoulder pain 04/28/2019 documented as of this encounter Visit Diagnoses Diagnosis Chronic right shoulder pain - Primary Pain in joint, shoulder region documented in this encounter Care Teams Regulatory Affairs Internship Relationship Specialty Start Date End Date Bethany Rahman MD PCP - General 10/29/[address] [place] [address] documented as of this encounter
--- OUTSIDE RECORDS SUMMARY | 2022-02-06 14:13 | XMS_ITS | Encounter Summary ---
:1975 Author Organization [facility] Address [address] [place] [address] Care Team Providers Name Role Phone Bethany Correia MD Primary Care Provider Reason for Referral Consultation (Routine) - Closed Specialty Diagnoses / Procedures Referred By Contact Refer red To Contact Otolaryngology Diagnoses Tonsillitis Bethany Correia MD [address] [place], [place] [address] Referral ID Status Reason Start Date Expiration Date Visits V isits Requested Authorized [id number] Closed Specialty 04/22/2019 04/22/2020 1 1 Services Required Scheduling Instructions Patient is a healthy 44 year old male wi th a history of frequent sore throats/tonsillitis with enlarged tonsil s. Requesting a consultation with ENT to consider a possible Tonsillectomy if med ically indicated. Please call the patient to schedule an appointment for consultation . RAL RESOURCE SPECIALIST Consultation (Routine) - Closed Specialty Diagnoses / Procedures Referred By Contact Refer red To Contact Diagnoses Chronic right shoulder pain Bethany Correia MD [facility] [address] [place] [address] [place] [phone] Referral ID Status Reason Start Date Expiration Date Visits Requ ested Visits Authorized [id number] Closed 04/21/2019 04/21/2020 1 1 RAL RESOURCE SPECIALIST Consultation (Routine) - Closed Specialty Diagnoses / Procedures Referred By Contact Refer red To Contact Diagnoses Tonsillitis Bethany Correia MD [facility] [address] [address] [place] [address] Fax: Referral ID Status Reason Start Date Expiration Date Visits Requ ested Visits Authorized [id number] Closed 04/21/2019 04/21/2020 1 1 RAL RESOURCE SPECIALIST Reason for Visit Reason Onset Date Comments Referral 04/21/2019 Encounter Details Date Type Department Care Team Description 04/21/2019 Telephone [place] Bethany Correia MD Referral [address] [facility] [address] [place], [place] [address] [place], [place] [phone] (Wo rk) Social History Tobacco Use Types [...] at Date Recorded 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 RAL RESOURCE SPECIALIST Telephone Encounter - Bethany Correia MD - 04/22/2019 3:26 PM CST Let Fabiano know that I have sent a referral to ENT at [facility]. Someone from their office should contact him in 2-3 days or so. Any problems he should call us back. RAL RESOURCE SPECIALIST Addendum Note - Bethany Correia MD - 04/22/2019 3:26 PM NATURAL RESOURCE SPECIALIST Addended by: Bethany CORREIA on: 04/22/2019 03:26 PM Modules accepted: Orders RAL RESOURCE SPECIALIST Telephone Encounter - Elida Flynn RN - 04/22/2019 2:45 PM CST Patient informed. [facility] does not have ENT anymore and [address] is to far for patient, he wouldprefer to see ENT at [facility] in [place]. Please place referral. RAL RESOURCE SPECIALIST Telephone Encounter - Do Samayoa - 04/22/2019 1:51 PM CST Referral and face sheet faxed to [facility] as reqested. RAL RESOURCE SPECIALIST Telephone Encounter - Elida Flynn RN - 04/22/2019 1:12 PM CST Please fax referral to [facility]. for patient to return call. RAL RESOURCE SPECIALIST Telephone Encounter - Bethany Correia MD - 04/22/2019 1:09 PM CST The two screws in his foot will not affect the MRI scan. RAL RESOURCE SPECIALIST Telephone Encounter - Elida Flynn RN - 04/22/2019 8:24 AM CST Patient said that it is his right shoulder but he wanted to know if the two screws that are in his foot will make a difference in whether or not he can get an MRI or not? RAL RESOURCE SPECIALIST Addendum Note - Bethany Correia MD - 04/21/2019 4:33 PM NATURAL RESOURCE SPECIALIST Addended by: Bethany CORREIA on: 04/21/2019 04:33 PM Modules accepted: Orders RAL RESOURCE SPECIALIST Telephone Encounter - Elida Flynn RN - 04/21/2019 4:21 PM CST Patient would prefer to go to [facility]. RAL RESOURCE SPECIALIST Telephone Encounter - Luciana Munoz LPN - 04/21/2019 3:47 PM CST [facility], [facility], [facility] [place] RAL RESOURCE SPECIALIST Telephone Encounter - Do Samayoa - 04/21/2019 3:43 PM CST Referral and face sheet faxed to [facility] as requested. RAL RESOURCE SPECIALIST Telephone Encounter - Luciana Munoz LPN - 04/21/2019 3:30 PM CST Please send to [facility] RAL RESOURCE SPECIALIST Telephone Encounter - Bethany Correia MD - 04/21/2019 3:14 PM CST I have placed a referral for Fabiano to consult with Dr. Mohamud Burnett ENT specialist in [facility]. He hedoesn't hear from them in say 2 weeks or so he should let us know. Ask Fabiano where he would like toget the MRI scan of his right shoulder. This could be [facility] in [place], [facility], [facility]. . . Let me know and I will place the order. RAL RESOURCE SPECIALIST Telephone Encounter - Elida Flynn RN - 04/21/2019 2:31 PM CST Please review requests for referral. RAL RESOURCE SPECIALIST Telephone Encounter - Paula Bañuelos - 04/21/2019 2:09 PM CST Patient would like to proceed with Referral to ENT. He would like this in if possible. He also would like imaging of his shoulder. Please call him at [phone]. RAL RESOURCE SPECIALIST documented in this encounter Plan of Treatment Scheduled Referrals Name Type Priority Associated Diagnoses Order S chedule Ambulatory External Outpatient Referral Routine Tonsillitis O rdered: Referral 04/21/2019 Ambulatory External Outpatient Referral Routine Chronic right Ordered: Referral shoulder pain 04/21/2019 Ambulatory referral Outpatient Referral Routine Tonsillitis O rdered: to ENT 04/22/2019 documented as of this encounter Visit Diagnoses Diagnosis Tonsillitis - Primary Acute tonsillitis Chronic right shoulder pain Pain in joint, shoulder region documented in this encounter Care Teams Cellophane Worker Relationship Specialty Start Date End Date Bethany Correia MD PCP - General 10/29/[address] [place] [address] documented as of this encounter
--- OUTSIDE RECORDS SUMMARY | 2022-02-06 14:13 | XMS_ITS | Encounter Summary ---
:1975 Author Organization [facility] Address [address] [place] [address] Care Team Providers Name Role Phone Bethany Rahman MD Primary Care Provider Reason for Referral Consultation (Routine) - Closed Specialty Diagnoses / Procedures Referred By Contact Refer red To Contact Diagnoses Pain in both feet Bethany Rahman MD [facility] 1705 [facility] [address] [address] Referral ID Status Reason Start Date Expiration Date Visits Requ ested Visits Authorized [id number] Closed 12/02/2018 12/03/2019 1 1 Reason for Visit Reason Onset Date Comments Referral 12/02/2018 Encounter Details Date Type Department Care Team Description 12/02/2018 Telephone Bethany Cline MD Referral [address] [facility] [address] [place], [place] [address] [place], [place] [phone] (Wo rk) Social History Tobacco Use Types [...] Date Recorded 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 Telephone Encounter - Do Samayoa - 12/22/2018 11:33 AM CDT Referral and face sheet faxed to [facility] Podiatry as requested. Telephone Encounter - Luciana Munoz LPN - 12/22/2018 11:04 AM CDT Please Telephone Encounter - Elida Flynn RN - 12/22/2018 11:03 AM CDT Please fax referral to [phone] Telephone Encounter - Elida Flynn RN - 12/22/2018 10:34 AM CDT Spoke to podiatry scheduling in [place] they do not have the referral will reprocess and fax to [phone]. Telephone Encounter - Paula Bañuelos - 12/19/2018 4:25 PM CDT Patient has not heard from [facility] regarding podiatry referral. Telephone Encounter - Lu Karimi RN - 12/02/2018 4:20 PM CDT Message left on identified voicemail. Return number provided for questions. Telephone Encounter - Luciana Munoz LPN - 12/02/2018 3:12 PM CDT [place] he would like it sent too. Telephone Encounter - Paula Bañuelos - 12/02/2018 12:23 PM CDT Patient would like referral to podiatry for second opinion. Please call him at [phone]. documented in this encounter Plan of Treatment Scheduled Referrals Name Type Priority Associated Order Schedule Diagnoses Ambulatory External Outpatient Referral Routine Pain in both f eet Ordered: Referral 12/02/2018 documented as of this encounter Visit Diagnoses Diagnosis Pain in both feet - Primary documented in this encounter Care Teams Manager Consumer Relationship Specialty Start Date End Date Bethany Rahman MD PCP - General 10/29/[address] [place] [address] documented as of this encounter
--- OUTSIDE RECORDS SUMMARY | 2022-02-06 14:13 | XMS_ITS | Encounter Summary ---
:1975 Author Organization [facility] Address [address] [place] [address] Care Team Providers Name Role Phone Bethany Rahman MD Primary Care Provider Reason for Visit Reason Onset Date Comments Med Refill Med Refill 01/22/2019 Encounter Details Date Type Department Care Team Description 12/26/2018 Refill [place] Bethany Rahman, Depression, unspecified depr ession type; [address] Mixed hyperlipidemia; [place], [place] [address] 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 These were previously filled for one month. Pt uses [facility] in [place]. Please call Pt at [phone] to advise. Telephone Encounter - Patricia Guerrero LPN - 12/30/2018 7:40 AM CDT Last Rx: Duloxetine 30 mg 03/28/2018 # 90, 3 refills Duloxetine 60 mg 03/28/2018 # 90, 3 refills Requested Prescriptions Pending Prescriptions Disp Refills ??? DULoxetine (CYMBALTA) [address] capsule [Pharmacy Med Name: DULOXETINE DR 30MG CAPSULES] 90 capsule 0 Sig: TAKE 1 CAPSULE BY MOUTH EVERY DAY FOR ANXIETY OR DEPRESSION OR PAIN ??? DULoxetine (CYMBALTA) [address] capsule [Pharmacy Med Name: DULOXETINE DR 60MG CAPSULES] 90 capsule 0 Sig: TAKE 1 CAPSULE BY MOUTH EVERY DAY FOR ANXIETY OR DEPRESSION OR PAIN Spoke to pharmacy patient has a refill availabe documented in this encounter Plan of Treatment Not on filedocumented as of this encounter Visit Diagnoses Diagnosis Depression, unspecified depression type Mixed hyperlipidemia Essential hypertension Unspecified essential hypertension documented in this encounter Care Teams Linux Security Administrator Relationship Specialty Start Date End Date Bethany Rahman MD PCP - General 10/29/[address] [place] [address] documented as of this encounter
--- OUTSIDE RECORDS SUMMARY | 2022-02-06 14:13 | XMS_ITS | Encounter Summary ---
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
--- OUTSIDE RECORDS SUMMARY | 2022-02-06 14:13 | XMS_ITS | Encounter Summary ---
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 CBC BRANCH OFFICE Routine 03/20/2019 9:52 AM Resu lts for this W/DIFF GEOLOGY PROFESSOR procedure are i n the results section. BASIC METABOLIC Routine 03/20/2019 9:52 AM Pre-op evaluation R esults for this PANEL GEOLOGY PROFESSOR procedure are i n the results section. documented in this encounter Results Glomerular filtration rate (GFR) (03/20/2019 9:52 AM GEOLOGY PROFESSOR) P athologist Signature GFR >60 03/20/2019 [facility] 10:54 AM GEOLOGY PROFESSOR [facility] >60 03/20/2019 [facility] [place] GFR 10:54 AM GEOLOGY PROFESSOR [facility] Comment: GFR calculated from serum creatinine v alue Chronic Kidney Disease less than 60 mL/m in/1.73 m2 Kidney Failure less than 15 mL/min/1.73 m2 Note: effective 08/07/06 IDMS-Traceable MDRD Study Equation used. Specimen Anatomical Collection Method Collection Time Receive d Time (Source) Location / / Volume Laterality 03/20/2019 9:52 AM 9 9:52 GEOLOGY PROFESSOR AM GEOLOGY PROFESSOR D. Derrick Rahman MD LAB BLOOD ORDERABLES Performing Organization Address City/State/ZIP Code Phon e Number [facility] [address] [place] [address] [place] Off w/Diff (03/20/2019 9:52 AM GEOLOGY PROFESSOR) athologist Signature WBC 7.3 3.5 - 10.5 03/20/2019 [facility] K/uL 10:54 AM GEOLOGY PROFESSOR [place] RBC 5.34 4.30 - 03/20/2019 [facility] 5.70 M/uL 10:54 AM GEOLOGY PROFESSOR [place] Hemoglobin 16.3 13.5 - 03/20/2019 [facility] 17.5 g/dL 10:54 AM GEOLOGY PROFESSOR [place] Hematocrit 48.6 38.0 - 03/20/2019 [facility] 50.0 % 10:54 AM GEOLOGY PROFESSOR [place] Platelets 294 150 - 450 03/20/2019 [facility] K/uL 10:54 AM GEOLOGY PROFESSOR [place] MCV 91.0 81.2 - 03/20/2019 [facility] 95.1 fL 10:54 AM GEOLOGY PROFESSOR [place] MCH 30.5 26.0 - 03/20/2019 [facility] 32.0 pg 10:54 AM GEOLOGY PROFESSOR [place] MCHC 33.5 32.0 - 03/20/2019 [facility] 36.0 g/dL 10:54 AM GEOLOGY PROFESSOR [place] RDW 12.6 11.8 - 03/20/2019 [facility] 15.6 % 10:54 AM GEOLOGY PROFESSOR [place] Lymphocytes % 21.4 18.0 - 03/20/2019 [facility] 45.0 % 10:54 AM GEOLOGY PROFESSOR [place] Mid-size Cells 9.4 3.3 - 10.1 03/20/2019 [facility] [place] % 10:54 AM GEOLOGY PROFESSOR [place] Granulocytes/Travis 69.2 45.8 - 03/20/2019 [facility] [place] trophils 73.7 % 10:54 AM GEOLOGY PROFESSOR [place] Lymphocytes 1.6 0.9 - 2.9 03/20/2019 [facility] [place] Absolute K/uL 10:54 AM GEOLOGY PROFESSOR [place] MIDS Absolute 0.7 0.2 - 0.8 03/20/2019 [facility] [place] K/uL 10:54 AM GEOLOGY PROFESSOR [place] Granulocytes/Travis 5.0 2.1 - 8.7 03/20/2019 [facility] [place] trophils K/uL 10:54 AM GEOLOGY PROFESSOR [place] Absolute Specimen Anatomical Collection Method Collection Time Receive d Time (Source) Location / / Volume Laterality 03/20/2019 9:52 AM 9 9:52 GEOLOGY PROFESSOR AM GEOLOGY PROFESSOR D. Derrick Rahman MD LAB BLOOD ORDERABLES Performing Organization Address City/State/ZIP Code Phon e Number [facility] [place] [address] [place] [address] (ABNORMAL) Basic metabolic panel (03/20/2019 9:52 AM GEOLOGY PROFESSOR) P athologist Signature Sodium 140 135 - 145 03/20/2019 [facility] [place] mmol/L 10:54 AM GEOLOGY PROFESSOR [place] Potassium 4.3 3.5 - 5.1 03/20/2019 [facility] [place] mmol/L 10:54 AM [facility] [place] Comment: . Chloride 106 98 - 107 mmol/L 03/20/2019 10:54 AM [facility] [place] Comment: . CO2 31 22 - 31 mmol/L 03/20/2019 10:54 AM [facility] [place] Comment: . Creatinine 0.6 0.6 - 1.4 mg/dL 03/20/2019 10:54 AM [facility] [place] Comment: . BUN 12 5 - 25 mg/dL 03/20/2019 10:54 AM [facility] [place] Comment: . Glucose 106 (H) 70 - 100 mg/dL 03/20/2019 10:54 AM [facility] [place] GEOLOGY PROFESSOR Calcium, Total,S 9.4 8.4 - 10.2 mg/dL 03/20/2019 10:54 AM [facility] [place] GEOLOGY PROFESSOR Comment: . Fasting? Unknown 03/20/2019 10:53 AM GEOLOGY PROFESSOR [facility] [place] Specimen Anatomical Collection Method Collection Time Receive d Time (Source) Location / / Volume Laterality Blood 03/20/2019 9:52 AM 9 9:52 GEOLOGY PROFESSOR AM GEOLOGY PROFESSOR DJ Carlos Rahman MD LAB BLOOD ORDERABLES Performing Organization Address City/State/ZIP Code Phon e Number [facility] [place] [address] [place] [address] documented in this encounter Visit Diagnoses Diagnosis Pre-op evaluation documented in this encounter Care Teams Towboat Engineer Relationship Specialty Start Date End Date Bethany Rahman MD PCP - General 10/29/[address] [place] [address] documented as of this encounter
--- OUTSIDE RECORDS SUMMARY | 2022-02-06 14:13 | XMS_ITS | Encounter Summary ---
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 He has a preop on 06/02 for his ENT surgery. D CARE WORKER Telephone Encounter - D. Derrick Molenaar, MD - 05/13/2019 8:38 AM CST If he is coming in today this would be > 30 days prior to his scheduled surgery date. Call [facility] surgery department and/or ENT department and see if this is still OK. From my standpoint it is OK. D CARE WORKER Telephone Encounter - Elida Flynn RN - 05/13/2019 8:20 AM CST Patient is scheduled 06/15. He is coming today for a preop. D CARE WORKER Telephone Encounter - Luciana Munoz LPN - 05/12/2019 4:36 PM CST Can you find out if Fabiano has been scheduled yet for his Tonsillectomy to be done at [facility]. Let me know Thanks. D CARE WORKER documented in this encounter Plan of Treatment Not on filedocumented as of this encounter Visit Diagnoses Not on filedocumented in this encounter Care Teams Fabrication And Layout Craftsman Relationship Specialty Start Date End Date Bethany Rahman MD PCP - General 10/29/[address] [place] [address] documented as of this encounter
--- OUTSIDE RECORDS SUMMARY | 2022-02-06 14:13 | XMS_ITS | Encounter Summary ---
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
--- OUTSIDE RECORDS SUMMARY | 2022-02-06 14:13 | XMS_ITS | Encounter Summary ---
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 Lott please place case request for tonsillectomy for this patient ER FURNACE Telephone Encounter - Zhane Shaffer RN - 05/25/2019 8:32 AM CST Patient has an appointment with Dr Stovall on 05/28. I will send cardiology a message to be sure they have him sign the release on that day. 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 In past month ER FURNACE documented in this encounter Plan of Treatment Not on filedocumented as of this encounter Visit Diagnoses Not on filedocumented in this encounter Care Teams Computer Technology Trainer Relationship Specialty Start Date End Date Bethany Rahman MD PCP - General 10/29/[address] [place] [address] documented as of this encounter
--- OUTSIDE RECORDS SUMMARY | 2022-02-06 14:13 | XMS_ITS | Encounter Summary ---
:1975 Author Organization [facility] Address [address] [place] [address] Care Team Providers Name Role Phone Bethany Rahman MD Primary Care Provider Reason for Referral Consultation (Routine) - Closed Specialty Diagnoses / Procedures Referred By Contact Refer red To Contact Cardiology Diagnoses WPW (Ebhum-Veigyayij-Vncoq syndrome) Bethany Rahman MD [address] [place] [address] Referral ID Status Reason Start Date Expiration Date Visits V isits Requested Authorized [id number] Closed Specialty 05/19/2019 05/19/2020 1 1 Services Required Scheduling Instructions Fabiano is a healthy 44 year old who at a ge 19 after smoking pot that was probably laced with ??cocaine proceeded to have a rapid pulse, unconscious event, hospitalized at [facility] for 3 days and 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 Some time later he underwent an EP study at [place] with the t hought that they were going to cauterize an accessory tract but were unable to induc e any event so no procedure needed to be done. In the last 20 years he has had no further episodes and his EKGs have been normal. Requesting a Cardiac consult to clear patient for his scheduled Tonsillectomy to be done at [facility] on 2019. Please contact the patient to schedule. 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. Either call Fabiano or the Cardiology clinic and see if an appointment has been set up and then let me know. INATION SUPERVISOR Telephone Encounter - Luciana Munoz LPN - 05/14/2019 8:46 AM CST Sleep study at your desk INATION SUPERVISOR Telephone Encounter - Luciana Munoz LPN - 05/13/2019 3:15 PM CST Fabiano says that he had a Sleep Study done at the [facility] 2-3 years ago that I possibly ordered. ??First, see if you can find a copy on his chart (I wasn't able to) and if you don't find itthen call the [facility] and if it were done there and we ordered it have them fax us a copy of thereport. 2017-requested help desk agent: Please fax my pre-op evaluation to the [facility] along with the labs we did today. INATION SUPERVISOR documented in this encounter Plan of Treatment Scheduled Referrals Name Type Priority Associated Order Schedule Diagnoses Ambulatory referral Outpatient Referral Routine WPW O rdered: to Cardiology (Nakyf-Rluqaxfsi-Ow 020 ite syndrome) documented as of this encounter Visit Diagnoses Diagnosis WPW (Fdtvm-Zigdcstow-Gpvye syndrome) - P rimary Anomalous atrioventricular excitation documented in this encounter Care Teams Pet Food Deboner Relationship Specialty Start Date End Date Bethany Rahman MD PCP - General 10/29/[address] [place] [address] documented as of this encounter
--- OUTSIDE RECORDS SUMMARY | 2022-02-06 14:13 | XMS_ITS | Encounter Summary ---
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 . PRINTING MACHINE OPERATOR Telephone Encounter - Elida Flynn RN - 05/14/2019 12:49 PM CST Please fax preop to [facility] PRINTING MACHINE OPERATOR documented in this encounter Plan of Treatment Not on filedocumented as of this encounter Visit Diagnoses Not on filedocumented in this encounter Care Teams Acid Extractor Relationship Specialty Start Date End Date Bethany Rahman MD PCP - General 10/29/[address] [place] [address] documented as of this encounter
--- OUTSIDE RECORDS SUMMARY | 2022-02-06 14:13 | XMS_ITS | Encounter Summary ---
:1975 Author Organization [facility] Address [address] [place] [address] Care Team Providers Name Role Phone Bethany Rahman MD Primary Care Provider Reason for Visit Reason Comments Med Refill Encounter Details Date Type Department Care Team Description 03/28/2019 Refill [place] Bethany Rahman MD [facility] [address] 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 gabapentin (NEURONTIN) 300 MG capsule [Pharmacy Med Name: GABAPENTIN 300MG CAPSULES] 90 capsule 1 Sig: MAY TAKE 1 CAPSULE BY MOUTH ONCE A DAY FOR PAIN OR DIRECTED P TREATMENT OPERATOR documented in this encounter Plan of Treatment Not on filedocumented as of this encounter Visit Diagnoses Diagnosis Neuropathy Mononeuritis of unspecified site documented in this encounter Care Teams Health And Human Performance Professor Relationship Specialty Start Date End Date Bethany Rahman MD PCP - General 10/29/[address] [place] [address] documented as of this encounter
--- OUTSIDE RECORDS SUMMARY | 2022-02-06 14:13 | XMS_ITS | Encounter Summary ---
:1975 Author Organization [facility] Address [address] [place] [address] Care Team Providers Name Role Phone Bethany Rahman MD Primary Care Provider Reason for Visit Reason Comments Throat Problem recurrent tonsils and some s trep Consultation (Routine) - Closed Specialty Diagnoses / Procedures Referred By Contact Refer red To Contact Otolaryngology Diagnoses Tonsillitis Bethany Rahman MD [address] [place], [place] [phone] Referral ID Status Reason Start Date Expiration Date Visits V isits Requested Authorized [id number] Closed Specialty 04/22/2019 04/22/2020 1 1 Services Required Encounter Details Date Type Department Care Team Description 05/08/2019 Office Visit SE Ear Nose Throat Bethany Rahman MD [address] [place] [address] Hypertrophy of tonsils [address] Scott Thurston MD alone (Primary Dx) [place] [address] Social History Tobacco Use Types Packs/Day Years [...] at Date Recorded 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 Last Filed Vital Signs Vital Sign Reading Time Taken Comments Blood Pressure 120/74 05/08/2019 5:16 PM PAINTING WORKER Pulse 98 05/08/2019 1:38 PM PAINTING WORKER Temperature 36.8 ??C (98.2 ??F) 05/08/2019 1:38 PM PAINTING WORKER Respiratory Rate 16 05/08/2019 1:38 PM PAINTING WORKER Oxygen Saturation 97% 05/08/2019 1:38 PM PAINTING WORKER Inhaled Oxygen Concentration - - Weight 109 kg (239 lb 11.2 oz) 05/08/2019 1:38 PM PAINTING WORKER Height - - Body Mass Index 33.19 03/20/2019 9:02 AM PAINTING WORKER documented in this encounter Patient Instructions Patient InstructionsScott Thurston MD - 05/08/2019 1:45 PM CST I agree that removing her tonsils would be helpful due to the severity of your attacks. This will bescheduled TING WORKER documented in this encounter Progress Notes Scott Thurston MD - 05/08/2019 1:45 PM CST New Patient Visit Subjective Patient ID: Fabiano Schwartz is a 44 y.o. male. Chief Complaint Patient presents with ??? Throat Problem recurrent tonsils and some strep HPI 44-year-old male with a history of recurrent tonsil issues. He has significant dysphasia as well as globus and swallowing issues. He also has tonsil stones. He is furthermore noticed gagging and increasing snoring The following portions of the patient's chart were reviewed in this encounter and updated as appropriate: Tobacco Allergies Meds Problems Med Hx Surg Hx Fam Hx Review of Systems Constitutional: Negative for chills, diaphoresis, fatigue and unexpected weight change. HENT: Negative for congestion, dental problem, drooling, ear discharge, ear pain, facial swelling, hearing loss, nosebleeds, postnasal drip, rhinorrhea, sinus pressure, sinus pain, sneezing, sore throat, tinnitus, trouble swallowing and voice change. Eyes: Negative for discharge and itching. Endocrine: Negative for cold intolerance and heat intolerance. Musculoskeletal: Negative for neck pain and neck stiffness. Skin: Negative for color change. Allergic/Immunologic: Negative for environmental allergies. Neurological: Negative for headaches. Hematological: Negative for adenopathy. History of Rdlxw-Pzkfwwutp-Zoozw Obesity Depression Neuropathy in the back Objective Physical Exam Oropharynx or cavity were clear with tonsils 4++ bilaterally. They are markedly cryptic and erythematous. 's nasal speculum revealed clear mucus bilaterally. Pleasant gentleman, alert and oriented, oriented x3 Appropriate in demeanor and affect I would plan on taking him Assessment/Plan Diagnoses and all orders for this visit: Hypertrophy of tonsils alone I will plan on taking him to the operating room for tonsillectomy and adenoidectomy. He will certainly get clearance regarding his Kxevq-Oxhcbeklo-Nngdl. He is anxious to have the tonsils removed. TING WORKER Bethany Rahman MD - 05/08/2019 1:45 PM CST Fabiano will be having his Tonsils removed at [facility]. He will need to have a Cardiology consult to [facility] for this secondary to a history of Friend Parkinson's White. Call Fabiano and find out when he isthinking of having this procedure done so that we can make arrangements for him to consult with Dr. Jacqui fajardo. Let me know. TING WORKER Bethany Rahman MD - 05/08/2019 1:45 PM CST Can you find out if Fabiano has been scheduled yet for his Tonsillectomy to be done at [facility]. Let me know Thanks. TING WORKER documented in this encounter Miscellaneous Notes Addendum Note - Scott Thurston MD - 05/08/2019 1:45 PM PAINTING WORKER Addended by: SCOTT THURSTON on: 05/27/2019 08:31 AM Modules accepted: Orders, SmartSet TING WORKER Addendum Note - Scott Thurston MD - 05/08/2019 1:45 PM PAINTING WORKER Addended by: SCOTT THURSTON on: 12/28/2019 02:40 PM Modules accepted: Orders, SmartSet documented in this encounter Plan of Treatment Not on filedocumented as of this encounter Visit Diagnoses Diagnosis Hypertrophy of tonsils alone - Primary documented in this encounter Care Teams Sheet Catcher Relationship Specialty Start Date End Date Bethany Rahman MD PCP - General 10/29/[address] [place] [address] documented as of this encounter
--- OUTSIDE RECORDS SUMMARY | 2022-02-06 14:13 | XMS_ITS | Encounter Summary ---
:1975 Author Organization [facility] Address [address] [place] [address] Care Team Providers Name Role Phone Bethany Rahman MD Primary Care Provider Reason for Visit Reason Comments Foot Pain Right Consultation (Routine) - Closed Specialty Diagnoses / Procedures Referred By Contact Refer red To Contact Orthopedic Surgery Diagnoses Foot mass, right Bethany Rahman MD [address] [place] [address] Referral ID Status Reason Start Date Expiration Date Visits V isits Requested Authorized [id number] Closed Specialty 03/14/2018 03/14/2019 1 1 Services Required Encounter Details Date Type Department Care Team Description 03/28/2018 Office Visit [facility] OrenBoris MD Foot pain, right Orthopedics [address] (Primary Dx) [address] [place] [address] [place], [place] [phone] Social History Tobacco Use Types Packs/Day Years [...] at Date Recorded 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 as of 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 encounter Last Filed Vital Signs Vital Sign Reading Time Taken Comments Blood Pressure - - Pulse - - Temperature 36.3 ??C (97.3 ??F) 03/28/2018 10:22 AM RADIO SALES ACCOUNT EXECUTIVE Respiratory Rate - - Oxygen Saturation - - Inhaled Oxygen Concentration - - Weight 112 kg (246 lb 14.6 oz) 03/28/2018 10:22 AM RADIO SALES ACCOUNT EXECUTIVE Height 179 cm (5' 10.47) 03/28/2018 10:22 AM RADIO SALES ACCOUNT EXECUTIVE Body Mass Index 34.96 03/28/2018 10:22 AM RADIO SALES ACCOUNT EXECUTIVE documented in this encounter Progress Notes Boris Lott MD - 03/28/2018 10:40 AM CST New Patient Visit [facility] - Orthopedics and Sports Medicine Patient Name: Fabiano Schwartz Patient Identifier: [id number] Service Location: Orthopedic Center/[facility] Hospital Location Date: 03/28/18 Referring Clinician: Bethany Rahman MD Chief Complaint: Chief Complaint Patient presents with ??? Foot Pain Right Subjective History of Present Illness: Patient complains of right foot pain secondary to a mass. He has had no injury. He has had a bump there for about a year. Sometimes it can be 8 out of 10 pain. It is achy. Walking causes problems. Staying off it makes it better. He is tried some anti-inflammatories and Tylenol. He has had surgery for heart condition but none on his foot. He complains of numbness and tingling and some stiffness and some weakness and some swelling and some grinding and clicking. He does have known neuropathy. Review of Systems: Numbness-tingling -yes Shortness of breath - No Loss of motion-stiffness -yes Chest pain - No Bowel habit changes - No Bladder habit changes - No Weakness-give out -yes Swelling -yes Vdpvggip-bcjnxzrh-yzevohj -yes Fevers, chills, and sweats - No Allergy to penicillin or cephalosporins - No Anemia - No Blood clots or blood clotting issues, bleeding issues - No Blood transfusion problems - No Diabetes - No Easy bruising or nosebleeds - No Frequent or difficult urination - No History of MRSA or MSSA infection - No Past Surgical History: Procedure Laterality Date ??? CARDIAC SURGERY Exploratory Family History Problem Relation Age of Onset ??? Heart attack Father ??? Liver disease Paternal Grandmother ??? Heart attack Paternal Grandfather Social History Socioeconomic History ??? Marital status: Spouse name: Not on file ??? Number of children: Not on file ??? Years of education: Not on file ??? Highest education level: Not on file Social Needs ??? Financial resource strain: Not on file ??? Food insecurity - worry: Not on file ??? Food insecurity - inability: Not on file ??? Transportation needs - medical: Not on file ??? Transportation needs - non-medical: Not on file Occupational History ??? Not on file Tobacco Use ??? Smoking status: Former Smoker ??? Smokeless tobacco: Never Used Substance and Sexual Activity ??? Alcohol use: Yes Comment: drinks once a month ??? Drug use: No ??? Sexual activity: Not on file Other Topics Concern ??? Not on file Social History Narrative ??? Not on file Allergies and Adverse Reactions: Allergies Allergen Reactions ??? Methylprednisolone ??? Tramadol Dizziness Medications and Failed Medications: Outpatient Encounter Medications as of 03/28/2018 Medication Sig Dispense Refill ??? cyclobenzaprine (FLEXERIL) 10 MG tablet Take 10 mg by mouth 2 times daily Take 1 tab by mouth two times daily as needed for muscle spasms. ??? DULoxetine (CYMBALTA) [address] capsule Take one a day for anxiety/depression/pain 90 capsule 3 ??? DULoxetine (CYMBALTA) [address] capsule Take one a day for anxiety/depression/pain 90 capsule 3 ??? gabapentin (NEURONTIN) 100 MG capsule Take ONE three times a day for the first ten days and thenincrease to TWO pills three times per day for neuropathy 150 capsule 0 ??? [DISCONTINUED] DULoxetine (CYMBALTA) [address] capsule Take 30 mg by mouth 1 (one) time each day in the morning ??? [DISCONTINUED] DULoxetine (CYMBALTA) [address] capsule Take 60 mg by mouth 1 (one) time each day in the evening 1 No facility-administered encounter medications on file as of 03/28/2018. Immunizations: Immunization History Administered Date(s) Administered ??? H1N1 All Forms 04/16/2009 ??? Tdap 07/16/2011 Objective Vital Signs: Wt Readings from Last 3 Encounters: 03/28/18 112 kg (246 lb 14.6 oz) 03/28/18 111 kg (244 lb 0.8 oz) 03/14/18 109 kg (239 lb 10.2 oz) Pulse Readings from Last 3 Encounters: 03/28/18 80 03/14/18 88 12/30/17 97 BP Readings from Last 3 Encounters: 03/28/18 134/90 03/14/18 (!) 142/96 12/30/17 124/72 Physical Examination: General: No acute distress, appropriate affect, follows commands. Gait: Reciprocal, nonantalgic. Observation: Looks stated age, no obvious limb malalignment. Musculoskeletal exam/Bilateral: In the medial aspect of the plantar fascia in the midpoint of the plantar fascia in the arch there is a 5 mm x 5 mm firm mass that appears to be affixed to the plantar fascia itself. The patient has no other masses palpable in the plantar aspect of the foot. The patienthas no masses in his hands. The skin overlying is intact. There are palpable pedal pulses. Neurologic examination: Straight leg test negative, moving all extremities, sensation grossly intactin the lower extremities. Skin: Intact without evidence of calor, induration, or erythema. Vascular: Good cap refill noted. Laboratory Results: Results for orders placed or performed in visit on 03/28/18 Lipid panel Result Value Ref Range Fasting? Yes Radiograph Results: the radiographic images were reviewed. X-ray Foot 3+ Views Right Narrative: INDICATION: small nodule mid instep COMPARISON: Right foot radiographs May 28, 2014 Impression: IMPRESSION: FOOT COMPLETE RIGHT MIN 3 VIEWS No perceptible nodule. No erosion or soft tissue calcification. No fracture, dislocation, or lytic or blastic lesion. Joint spaces are within normal limits. Small accessory ossicle is again seen posteromedial to the navicular. There is stable mild posterior calcaneal spurring. If there is a clinical need for additional imaging, MRI could be considered. Normal bony anatomy in the patient's foot. No soft tissue shadow abnormalities. 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 An MRI would confirm the diagnosis with a high degree of certainty. It is likely a plantar fibroma but I cannot be sure. We could also do an excisional biopsy. A plantar fibroma has a high recurrence rate even after excision. Any plantar skin scars can be an irritant I compared them to having the seem in the sock when he walks on it can be irritating. The other option is to simply accommodate the problem. By putting a small amount of dye such as Inc. on the mass on the foot and then stepping into the shoe inserts. The patient will leave an imprint of the mass in the shoe inserts. He then could take a scissors or knife and cut a hole into the insert to leave a relief under the bump. This will typically accommodate the bump and take away the pain. It is not 100% but can be easy to do. It is best to try it with a insert or a pair shoes that are older to make sure it does work and does not room them. After outlining the different treatment options, the patient wishes to proceed with simple offloading. This dictation was created with voice recognition software; therefore, it may contain grammatical errors that went unnoticed. MD Bethany Elmore MD O SALES ACCOUNT EXECUTIVE documented in this encounter Plan of Treatment Scheduled Referrals Name Type Priority Associated Order Schedule Diagnoses Ambulatory referral Outpatient Referral Routine Foot mass, rig ht Ordered: to Orthopedic 03/14/2018 Surgery documented as of this encounter Visit Diagnoses Diagnosis Foot pain, right - Primary Pain in soft tissues of limb documented in this encounter Care Teams Fur Tanner Relationship Specialty Start Date End Date Bethany Rahman MD PCP - General 10/29/[address] [place] [address] documented as of this encounter
--- OUTSIDE RECORDS SUMMARY | 2022-02-06 14:13 | XMS_ITS | Encounter Summary ---
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 male presenting for chief complaint of had concerns including Foot Cyst. HPI: Patient presents with 2 years of discomfort. One is of the plantar aspect of his right foot first metatarsal region plantarly. The other is in the third intermetatarsal space of the left foot. He was last seen in our department on July 09, [address] Kennedy and had a work-up in neurology by Dr. Alma Fernandez. 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 He does take gabapentin however this interacts with his other medications making him anxious. ROS: Musculoskeletal: Review reveals: Pain right foot first metatarsal,, painful third intermetatarsal space left foot Integument: Review reveals: No swelling or redness Neurologic: Review reveals: Some burning and tingling sensations of the third intermetatarsal space of his left foot Allergies Allergen Reactions ??? Methylprednisolone ??? Tramadol Dizziness Current Outpatient Medications: ??? cyclobenzaprine (FLEXERIL) 10 MG tablet, Take 10 mg by mouth 2 times daily Take 1 tab by mouth two times daily as needed for muscle spasms., Disp: , Rfl: ??? DULoxetine (CYMBALTA) [address] capsule, Take one a day for anxiety/depression/pain, Disp: 90 capsule, Rfl: 3 ??? DULoxetine (CYMBALTA) [address] capsule, Take one a day for anxiety/depression/pain, Disp: 90 capsule, Rfl: 3 ??? gabapentin (NEURONTIN) 300 MG capsule, MAY TAKE 1 CAPSULE BY MOUTH ONCE A DAY FOR PAIN OR DIRECTED, Disp: 90 capsule, Rfl: 1 Past Medical History: Diagnosis Date ??? Anxiety ??? WPW (Lvpmu-Jlmwawexp-Wrdcs syndrome) Past Surgical History: Procedure Laterality Date ??? CARDIAC SURGERY Exploratory Social History Socioeconomic History ??? Marital status: Spouse name: Not on file ??? Number of children: Not on file ??? Years of education: Not on file ??? Highest education level: Not on file Occupational History ??? Not on file Social Needs ??? Financial resource strain: Not on file ??? Food insecurity: Worry: Not on file Inability: Not on file ??? Transportation needs: Medical: Not on file Non-medical: Not on file Tobacco Use ??? Smoking status: Former Smoker ??? Smokeless tobacco: Never Used Substance and Sexual Activity ??? Alcohol use: Yes Comment: drinks once a month ??? Drug use: No ??? Sexual activity: Defer Lifestyle ??? Physical activity: Days per week: Not on file Minutes per session: Not on file ??? Stress: Not on file Relationships ??? Social connections: Talks on phone: Not on file Gets together: Not on file Attends worship service: Not on file Active member of club or organization: Not on file Attends meetings of clubs or organizations: Not on file Relationship status: Not on file ??? Intimate partner violence: Fear of current or ex partner: Not on file Emotionally abused: Not on file Physically abused: Not on file Forced sexual activity: Not on file Other Topics Concern ??? Not on file Social History Narrative ??? Not on file Family History Problem Relation Age of Onset ??? Heart attack Father ??? Liver disease Paternal Grandmother ??? Heart attack Paternal Grandfather Objective: Visit Vitals BP (!) 146/93 (BP Location: Left arm, Patient Position: Sitting) Pulse 110 Temp 36.2 ??C (97.1 ??F) (Temporal) Ht 1.785 m (5' 10.28) Wt 109 kg (240 lb 15.4 oz) SpO2 98% BMI 34.30 kg/m?? Smoking Status Former Smoker BSA 2.32 m?? Exam: General appearance, patient is quite no acute distress. He has a small plantar fibroma over the course of the flexor hallucis longus tendon of his right foot plantarly. This is 1 cm in diameter. Pedal pulses are +3 DP and PT, capillary refill to digits is less than 3 seconds. He has good range of motion of his metatarsal phalangeal joints and his ankle joints bilateral. Evaluation of the left foot reveals pain in the third intermetatarsal space. Neurological evaluation, patient has evidence ofa Wilkinson's neuroma with a positive Percy's test.. He has some lack of sensation plantarly of his left foot. This is consistent with the findings and neurology. X-rays: No radiographs are available forreview Fabiano was seen today for foot cyst. 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 He will apply this twice daily to the right foot. In regards to the neuroma, we discussed a cortisone injection, however the patient is notprepared to have this today. We also recommended Polysorb replacement insoles, but he already has cushioned insoles, similar to diabetic insoles for his neuropathy. 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
--- OUTSIDE RECORDS SUMMARY | 2022-02-06 14:13 | XMS_ITS | Encounter Summary ---
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 UCT SAFETY TEST ENGINEER Telephone Encounter - Bethany Rahman MD - 05/19/2019 1:00 PM CST Call Fabiano to let him know that we sent a referral in for him to see [facility]'s Public Services Assistant. Unfortunately Dr. Stovall does not have an opening on his visit to [place] in May so he will need to be scheduled at [facility] in [place]. They should call him in the next 1- 2 days to schedule UCT SAFETY TEST ENGINEER Telephone Encounter - Elida Flynn RN - 05/11/2019 9:55 AM CST Patient is scheduled for 06/16/2019 to have his tonsils removed. He would prefer to see Dr. Stovall in [place] but will travel to [place] if necessary. UCT SAFETY TEST ENGINEER Telephone Encounter - Luciana Munoz LPN - 05/11/2019 8:16 AM CST Fabiano will be having his Tonsils removed at [facility]. He will need to have a Cardiology consult to [facility] for this secondary to a history of Friend Parkinson's White. Call Fabiano and find out when he isthinking of having this procedure done so that we can make arrangements for him to consult with Dr. Jacqui fajardo. Let me know. UCT SAFETY TEST ENGINEER documented in this encounter Plan of Treatment Not on filedocumented as of this encounter Visit Diagnoses Not on filedocumented in this encounter Care Teams Obstetrics/Gynecology Nurse Relationship Specialty Start Date End Date Bethany Rahman MD PCP - General 10/29/[address] [place] [address] documented as of this encounter
--- OUTSIDE RECORDS SUMMARY | 2022-02-06 14:13 | XMS_ITS | Encounter Summary ---
:1975 Author Organization [facility] Address [address] [place] [address] Care Team Providers Name Role Phone Bethany Rahman MD Primary Care Provider Reason for Visit Reason Comments BP medication Encounter Details Date Type Department Care Team Description 11/28/2018 Office Visit Bethany Cline Essential hypertension (Prim marcell Dx); [address] [facility] 20 MD Derrick Mixed hyperlipidemia [place] [id number] [place] [address] [place] [address] Social History Tobacco Use Types Packs/Day Years [...] at Date Recorded 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 encounter Last Filed Vital Signs Vital Sign Reading Time Taken Comments Blood Pressure 148/92 11/28/2018 10:28 AM CDT Pulse 94 11/28/2018 10:28 AM CDT Temperature 36.6 ??C (97.9 ??F) 11/28/2018 10:28 AM CDT Respiratory Rate 16 11/28/2018 10:28 AM CDT Oxygen Saturation - - Inhaled Oxygen Concentration - - Weight 111 kg (244 lb 0.8 oz) 11/28/2018 10:28 AM CDT Height 180.5 cm (5' 11.06) 11/28/2018 10:28 AM CDT Body Mass Index 33.98 11/28/2018 10:28 AM CDT documented in this encounter Progress Notes Bethany Rahman MD - 11/28/2018 10:20 AM CDT Estab Patient Visit Subjective Patient ID: Fabiano Schwartz is a 43 y.o. male. HPI The patient is here today because of continued elevation of blood pressure. The patient is our 43-year-old individual who on the last several visits has been noticed to have blood pressures in the mid 140s over the low 90 range. He is here today to discuss his blood pressure. We also noticed on review of that he has cholesterol pattern shows a fairly significant elevation ofhis cholesterol at 245 his triglycerides are 358 his HDL is low at 35 and his LDL was elevated 138. It should be noted that his fasting blood sugars have been < 100. We discussed treatment options with him including weight loss the patient did lose weight from 250 pounds down to about 200 pounds but he was unable to maintain that he is now back up to about 246 pounds as such I am sure his cholesterol pattern if anything is worse than it was before. We discussed at length both treatment of hypertension and cholesterol. We discussed medications sideeffects the medication potential benefits. We also discussed the benefits of treating both in regard to decrease the risk factors for heart disease and strokes and so forth in the future at this point in time he is agreeable to starting medications. As an aside it should be noted he still continued to have bilateral foot problems he has seen [facility] podiatry department on couple separate occasions the verapamil gel does not seem to be helping much the orthotics did not help all that much there was some question about injection therapy for the Minh's neuroma patient would prefer to avoid that if he could at this time so for now he is just going to concentrate and getting his blood pressure and cholesterol under better control but some point time we might consider referring the patient back to [place] orthopedic department for further advice or suggestions because his feet continue to bother him. Review of Systems Objective Physical Exam Assessment/Plan Diagnoses and all orders for this visit: Essential hypertension - lisinopril (PRINIVIL,ZESTRIL) 20 MG tablet; Take 1/2 pill a day for the first 10 days and then onepill daily thereafter for blood pressure Mixed hyperlipidemia - atorvastatin (LIPITOR) 20 MG tablet; Take 1/2 pill at night for the first 10 days then one nightlythereafter for cholesterol The overall assessment is again hypertension and mixed hyperlipidemia and the plan is as stated We are going to start him on both Lipitor 20 mg pill as well as lisinopril 20 mg pill restart a lower dose and work up to those doses he will stop by the office periodically for blood pressure checks we discussed all possible side effects to both medications we have told him if he has any problems he can stop medications or go back to the lower dose if he tolerates that and then let us know. Otherwise he will return the office sometime in March or April for recheck of his cholesterol. He shouldstop by the office periodically for blood pressure checks as well. Consult time 15 minutes all 15 minutes was spent in review of hypertension review cholesterol and treatment thereof. documented in this encounter Plan of Treatment Not on filedocumented as of this encounter Visit Diagnoses Diagnosis Essential hypertension - Primary Unspecified essential hypertension Mixed hyperlipidemia documented in this encounter Care Teams Gasket Winder Relationship Specialty Start Date End Date Bethany Rahman MD PCP - General 10/29/[address] [place] [address] documented as of this encounter
--- OUTSIDE RECORDS SUMMARY | 2022-02-06 14:13 | XMS_ITS | Encounter Summary ---
:[address] 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 Patient was given the message regarding ENT and his shoulder and he will discuss the options with his and let us know what they decide. Patient currently scheduled to see you in Apr. NESS SYSTEM MANAGER Telephone Encounter - Bethany Rahman MD - 04/20/2019 12:01 PM CST First ask Fabiano how he is doing after his foot surgery. Next, in regard to his tonsils he would need to consult with an ENT Specialist to evaluate whether he would be a possible candidate for having his tonsils removed. It is a more difficult process for the adult to recover from and if he is a candidate and if he has his tonsils out it would probable take 2 weeks minimum to recover. In regard to his shoulder the first thing I would do would be to re-xray and compare to the xray he had done previously. Then, if the xray doesn't demonstrate anything specific if the shoulder continues to be a problem we could then consider an MRI scan and if we do this he could then consider a cortisone shot or Orthopedic consultation. .. Let me know if he would like a referral to ENT and if so any preference as to where he goes. There is an ENT Specialist in [place] that we could consider or down at [facility]. If he is interested in getting the shoulder xray let me know and I will put this order in. NESS SYSTEM MANAGER Telephone Encounter - Elida Flynn RN - 04/17/2019 8:39 AM CST Patient reports that he has a history of enlarged tonsils and a lot of sore throats. Patient wanted to know what the recovery time is for an adult after a tonsillectomy. Patient also wonders if there is anything we can do for his right shoulder pain. He denies any injury to this joint but he said that it hurts most of the time now. Pain does not radiate and he said that its directly in the joint itself. Please advise. Does patient need to be seen for this? Patient reports that he had talked to you about it in the past. NESS SYSTEM MANAGER Telephone Encounter - Do Danita - 04/16/2019 2:28 PM CST Pt called with some questions about an adult (himself) getting his tonsils removed and how difficultthe procedure and recovery can be. Please call Pt at [phone] to advise. NESS SYSTEM MANAGER documented in this encounter Plan of Treatment Not on filedocumented as of this encounter Visit Diagnoses Not on filedocumented in this encounter Care Teams Conference Producer Relationship Specialty Start Date End Date Bethany Rahman MD PCP - General 10/29/[address] [place] [address] documented as of this encounter
--- OUTSIDE RECORDS SUMMARY | 2022-02-06 14:14 | XMS_ITS | Encounter Summary ---
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 Right elbow pain FATIMAH Freeman [address] [facility] [address] [address] [facility] [address] [address] [place] [address] Social History Tobacco Use Types Packs/Day Years Used Date Former Smoker Smokeless Tobacco: Never Used Alcohol Use Standard Drinks/Week Comments Yes 0 (1 standard drink = 0.6 oz pure alcoho l) Sex Assigned at Date Recorded 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 encounter Last Filed Vital Signs Vital Sign Reading Time Taken Comments Blood Pressure 124/72 12/30/2017 2:00 PM CDT Pulse 97 12/30/2017 2:00 PM CDT Temperature 36.3 ??C (97.4 ??F) 12/30/2017 2:00 PM CDT Respiratory Rate 16 12/30/2017 2:00 PM CDT Oxygen Saturation 97% 12/30/2017 2:00 PM CDT Inhaled Oxygen Concentration - - Weight 112 kg (245 lb 13 oz) 12/30/2017 2:00 PM CDT Height 179 cm (5' 10.47) 12/30/2017 2:00 PM CDT Body Mass Index 34.8 12/30/2017 2:00 PM CDT documented in this encounter Patient Instructions Patient InstructionsChristine Jared Whiting, PROJECT CONSTRUCTION MANAGER - 12/30/2017 2:20 PM CDT Ibuprofen 400 mg three times per day Ice the right shoulder and elbow at least 3 times per day Chiropractor care Flexeril for muscle relaxation cannot drive while taking this medication. If pain relief not obtained with conservative treatment would refer to orthopedics. documented in this encounter Progress Notes Gema Whiting NP - 12/30/2017 2:20 PM CDT Estab Patient Visit Subjective Patient ID: Fabiano Schwartz is a 42 y.o. male presenting for the following concerns. Chief Complaint Patient presents with ??? Shoulder Pain Right ??? Elbow Injury Right HPI: The patient is a pleasant 42-year-old [id number], at times ambidextrous, male presenting ambulatory to the clinical setting with right shoulder and right elbow discomfort for the past 2-1/2 months. The patient reports he injured his right upper extremity while moving a couch, when he felt a pop in his right shoulder, and his heard a crack, 2-1/2 months ago. The patient has had right shoulder discomfort, as he points to the lateral aspect, with pain and discomfort above his right elbow since. No shoulder swelling; however, there is limited range of motion of the shoulder. He reports hehas had right elbow swelling and discomfort. The patient reports lifting, pushing, and pulling increases his discomfort. The patient has been using a romie gun at work, which will increase his discomfort. The patient reports he is not sleeping well, as he is a right-sided sleeper, and is unable to layon his right shoulder. The patient has resorted to sleeping on his back, which causes him to snore, and when he lays on his left side is uncomfortable from previously dislocated ribs. The patient was evaluated by Dr. Herrera from [facility] in [place], about month and a half ago, and received a steroid injection in his right shoulder, with improvement of his symptoms for a period of about a month, and now they seem to be returning. The patient did not have imagining during his initial visit. The patient has been receiving care consultant, has been taking Flexeril from a previous prescription, and ibuprofen 800 mg once daily, without relief. No previous right shoulder injuries and/or surgeries. The patient is a former smoker ROS: MUSCULOSKELETAL: See HPI. The patient has had right shoulder, right elbow discomfort since he moved a couch 2-1/2 months ago, and felt a pop, and his heard a crack from his right shoulder. The following portions of the patient's chart were reviewed in this encounter and updated as appropriate: Tobacco Allergies Meds Med Hx Surg Hx Fam Hx Soc Hx Objective Vitals: 12/30/17 1400 BP: 124/72 Pulse: 97 Resp: 16 Temp: 36.3 ??C (97.4 ??F) SpO2: 97% GENERAL: The patient is alert, orientated, and in no apparent distress. MUSCULOSKELETAL: Examing the right shoulder, there is no swelling, deformity, bruising, warmth or erythema. There is mild tenderness on the lateral aspect with palpation, no pain with palpation along the posterior and/or anterior joint line. The patient is able to abduct to about 90 degrees, abductionnormal, and internal/external rotation limited as the patient is having pain, as he points to the lateral aspect of his right shoulder. Negative empty can and Cox test. Examining the right elbow, no swelling, bruising, warmth, erythema, and/or deformity. The patient is able to flex and extend his right elbow without any limitations; pronate and supinate his right forearm without any limitations. His hand grasps are equal. Equal strength with flexion and extension of his upper extremities. Assessment/Plan Fabiano was seen today for shoulder pain and elbow injury. Diagnoses and all orders for this visit: Acute pain of right shoulder (Primary) - X-ray Shoulder 2+ Views Right; Future - X-ray Shoulder 2+ Views Right Right elbow pain - X-ray Elbow 1-2 Views Right; Future - X-ray Elbow 1-2 Views Right Discussed the plan of care with the patient. The patient wanted to pursue the right elbow x-ray in addition to the right shoulder x-ray. The xrays appear normal, official radiology reports are pending.The patient would like to continue conservative treatment. Recommended Ibuprofen 400 mg three times per day, with food, ice the right shoulder and elbow at least 3 times per day. The patient will continue with care consultant. The patient will continue Flexeril for muscle relaxation, which he has athome from a previous prescription, and understands he cannot drive while taking this medication. If his right upper extremity pain persists and/or worsens with conservative treatment, would refer the patient to orthopedics for evaluation and treatment. The patient agrees and understands this plan of care. Gema Whiting NP documented in this encounter Plan of Treatment Not on filedocumented as of this encounter Procedures Procedure Name Priority Date/Time Associated Diagnosis Comme nts XR ELBOW 3+ VIEWS Routine 12/30/2017 3:04 PM Resu lts for this RIGHT CDT procedure are i n the results section. XR SHOULDER 2+ Routine 12/30/2017 2:56 PM Acute pain of right Results for this VIEWS RIGHT CDT shoulder procedure are i n the results section. documented in this encounter Results X-ray elbow 3+ views right (12/30/2017 3:04 PM CDT) Anatomical Region Laterality Modality Upper Extremities, Elbow Right Radiographic Im aging Specimen (Source) Anatomical Collection Method Collection Time Re ceived Time Location / / Volume Laterality 12/30/2017 3:04 PM CDT Impressions 12/30/2017 3:06 PM CDT IMPRESSION: Mild degenerative joint disease and enth esopathy. ??No fracture or synovitis. Narrative 12/30/2017 3:06 PM CDT INDICATION: Elbow trauma, penetrating; the patient f elt a right a pop in his right shoulder and has had discomfort in his r ight elbow COMPARISON: None FINDINGS: ??Small posterior olecranon spur. ??Spu rring at the coronoid process. ??No fracture or joint effusion. ??Small dens ity adjacent to the lateral humeral epicondyle. Procedure Note Shekhar Astorga MD - 12/30/2017Formatt ing of this note might be different from the original. INDICATION: Elbow trauma, penetrating; the patient f elt a right a pop in his right shoulder and has had discomfort in his r ight elbow COMPARISON: None FINDINGS: Small posterior olecranon spur. Spurrin g at the coronoid process. No fracture or joint effusion. Small densit y adjacent to the lateral humeral epicondyle. IMPRESSION: Mild degenerative joint disease and enth esopathy. No fracture or synovitis. Gema Whiting APRN, ERIC IMG XR PROCEDURES X-ray Shoulder 2+ Views Right (12/30/2017 2:56 PM CDT) Anatomical Region Laterality Modality Upper Extremities, Shoulder Right Radiographic Imaging Specimen (Source) Anatomical Collection Method Collection Time Re ceived Time Location / / Volume Laterality 12/30/2017 2:56 PM CDT Impressions 12/30/2017 2:58 PM CDT IMPRESSION: SHOULDER COMPLETE RIGHT (MIN 2 VIEWS) No fracture, dislocation, or lytic or bl astic lesion. ??There is moderate lateral subacromial spurring. ??There is minimal acromioclavicular joint narrowing. ??The glenohumeral joint show s no abnormality. Narrative 12/30/2017 2:58 PM CDT INDICATION: Shoulder trauma, penetrating; the patien supriya felt a pop in his right shoulder COMPARISON: None available Procedure Note Cris Spence MD - 12/30/2017 INDICATION: Shoulder trauma, penetrating; the patien t felt a pop in his right shoulder COMPARISON: None available IMPRESSION: SHOULDER COMPLETE RIGHT (MIN 2 VIEWS) No fracture, dislocation, or lytic or bl astic lesion. There is moderate lateral subacromial spurring. There is m inimal acromioclavicular joint narrowing. The glenohumeral joint shows no abnormality. Gema Whiting APRN, ERIC IMG XR PROCEDURES documented in this encounter Visit Diagnoses Diagnosis Acute pain of right shoulder - Primary Right elbow pain Pain in joint, upper arm documented in this encounter Care Teams Gate Cutter Relationship Specialty Start Date End Date Bethany Rahman MD PCP - General 10/29/[address] [place] [address] documented as of this encounter
--- OUTSIDE RECORDS SUMMARY | 2022-02-06 14:14 | XMS_ITS | Encounter Summary ---
:[address] [facility] Address [address] [place] [address] Care Team Providers Name Role Phone Unavailable Primary Care Provider Unavailable Encounter Details Date Type Department Care Team Description 05/05/2017 Emergency [facility] [place] Alexa Noninfectiv e Emergency Room MD [place] gastroenteritis and [address] [place] [id number] Social History Tobacco Use Types Packs/Day Years Used Date Never Assessed Sex Assigned at Date Recorded Male 05/12/2018 3:05 PM [employer] documented as of this encounter Medications at Time of Discharge Medication Sig Dispensed Refills Start Date End Date cyclobenzaprine (FLEXERIL) Take 10 mg by mouth 2 times daily 0 01/05/2016 10 MG tablet Take 1 tab by mouth two times daily as needed for musc le spasms. HYDROcodone-acetaminophen Take by mouth 0 016 12/30/2017 (NORCO) 5-325 MG per tablet every 6 hours documented as of this encounter Plan of Treatment Not on filedocumented as of this encounter Procedures Procedure Name Priority Date/Time Associated Comments Diagnosis CT ABDOMEN PELVIS WO STAT 05/05/2017 12:27 Res ults for this CONTRAST PM [employer] procedure are i n the results section. GLOMERULAR FILTRATION STAT 05/05/2017 11:55 Re sults for this RATE AM [employer] procedure are i n the results section. ER ELECTROLYTE STAT 05/05/2017 11:55 Results f or this PROFILE AM [employer] procedure are i n the results section. CBC WITH AUTO STAT 05/05/2017 11:55 Results fo r this DIFFERENTIAL AM [employer] procedure are i n the results section. documented in this encounter Results CT abdomen pelvis wo IV contrast (05/05/2017 12:27 PM [employer]) Anatomical Region Laterality Modality Body Computed Tomography Specimen (Source) Anatomical Collection Method Collection Time Re ceived Time Location / / Volume Laterality 05/05/2017 12:27 PM [employer] Impressions 05/05/2017 1:23 PM [employer] IMPRESSION: 1. Epiploic appendagitis. 2. No renal stones. Please note that all CT scans at this [facility] use dose modulation, iterative reconstruction, and/or weight- based dosing when appropriate to reduce radiation dose to as low as re asonably achievable. Dictated by Alisson Swenson MD @ May 05 8 ??1:15PM Signed by Dr. Alisson Swenson @ May 05 2017 ??1:23PM Narrative 05/05/2017 1:23 PM [employer] HISTORY: Left flank pain. COMPARISON: None. TECHNIQUE: Noncontrast axial images were obtained t hrough the abdomen and pelvis. FINDINGS: The lung bases are clear. The liver, spl een, pancreas, gallbladder, adrenal glands and kidneys are within no rmal. No renal stones. No hydronephrosis. Mild focal inflammation anterior to the descending colon with central fat density consisten t with epiploic appendagitis. No evidence for bowel obstruction. The a ppendix is normal. No ascites or lymphadenopathy. The bones are within normal. Procedure Note Alisson Swenson B - 12/15/2017Formatting o f this note might be different from the original. HISTORY: Left flank pain. COMPARISON: None. TECHNIQUE: Noncontrast axial images were obtained t hrough the abdomen and pelvis. FINDINGS: The lung bases are clear. The liver, spl een, pancreas, gallbladder, adrenal glands and kidneys are within no rmal. No renal stones. No hydronephrosis. Mild focal inflammation anterior to the descending colon with central fat density consisten t with epiploic appendagitis. No evidence for bowel obstruction. The a ppendix is normal. No ascites or lymphadenopathy. The bones are within normal. IMPRESSION: 1. Epiploic appendagitis. 2. No renal stones. Please note that all CT scans at this [facility] use dose modulation, iterative reconstruction, and/or weight- based dosing when appropriate to reduce radiation dose to as low as re asonably achievable. Dictated by Alisson Swenson MD @ May 05 201 8 1:15PM Signed by Dr. Alisson Swenson @ May 05 2017 1:23PM Alexa Ribeiro MD IMG CT PROCEDURES Glomerular filtration rate (GFR) (05/05/2017 11:55 AM [employer]) athologist Signature GFR >60 05/05/2017 [facility] 12:19 PM [facility] >60 05/05/2017 [facility] [place] GFR 12:19 PM [facility] Comment: GFR calculated from serum creatinine v alue Chronic Kidney Disease less than 60 mL/m in/1.73 m2 Kidney Failure less than 15 mL/min/1.73 m2 Note: effective 08/07/06 IDMS-Traceable MDRD Study Equation used. Specimen Anatomical Collection Method Collection Time Receive d Time (Source) Location / / Volume Laterality 05/05/2017 11:55 05/05/2017 AM [facility] [facility] 11:55 AM [employer] Alexa Ribeiro MD LAB BLOOD ORDERABLES Performing Organization Address City/State/ZIP Code Phon e Number [facility] [address] [place] [id number] (ABNORMAL) ER electrolyte profile (05/05/2017 11:55 AM [employer]) athologist Signature Fasting? Unknown 05/05/2017 [facility] 11:58 AM [facility] Sodium 143 135 - 145 05/05/2017 [facility] mEq/L 12:16 PM [facility] Potassium 4.5 3.5 - 5.1 05/05/2017 [facility] mEq/L 12:16 PM [facility] Chloride 102 98 - 107 05/05/2017 [facility] mEq/L 12:16 PM [facility] CO2 33 (H) 22 - 31 05/05/2017 [facility] mmol/L 12:19 PM [facility] BUN 11 5 - 25 05/05/2017 [facility] mg/dL 12:20 PM [facility] Creatinine 0.9 0.6 - 1.4 05/05/2017 [facility] mg/dL 12:19 PM [facility] Glucose 97 70 - 100 05/05/2017 [facility] mg/dL 12:20 PM [facility] Specimen Anatomical Collection Method Collection Time Receive d Time (Source) Location / / Volume Laterality 05/05/2017 11:55 05/05/2017 AM [facility] [employer] 11:58 AM [employer] Alexa Ribeiro MD LAB BLOOD ORDERABLES Performing Organization Address City/State/ZIP Code Phon e Number [facility] [address] [place] [id number] (ABNORMAL) CBC auto differential (05/05/2017 11:55 AM [facility]) [facility] gist Method Time Signature WBC 8.8 3.5 - 05/05/2017 [facility] 10.5 K/uL 12:01 PM [facility] RBC 5.60 4.30 - 05/05/2017 [facility] 5.70 M/uL 12:01 PM [facility] Hemoglobin 17.0 13.5 - 05/05/2017 [facility] 17.5 g/dL 12:01 PM [facility] Hematocrit 53.0 (H) 38.0 - 05/05/2017 [facility] 50.0 % 12:01 PM [facility] MCV 94.7 81.2 - 05/05/2017 [facility] 95.1 fL 12:01 PM [facility] MCH 30.4 26.0 - 05/05/2017 [facility] 32.0 pg 12:01 PM [facility] MCHC 32.1 32.0 - 05/05/2017 [facility] 36.0 g/dL 12:01 PM [facility] RDW 12.1 11.8 - 05/05/2017 [facility] 15.6 % 12:01 PM [facility] Platelets 361 150 - 450 05/05/2017 [facility] K/uL 12:01 PM [facility] Neutrophils 64.8 % 05/05/2017 [facility] 12:01 PM [facility] Lymphocytes % 23.3 % 05/05/2017 [facility] 12:01 PM [facility] Monocytes % 8.6 % 05/05/2017 [facility] 12:01 PM [facility] Eosinophils 2.6 % 05/05/2017 [facility] 12:01 PM [facility] Basophils 0.8 % 05/05/2017 [facility] 12:01 PM [facility] Absolute 5.7 1.7 - 7.0 05/05/2017 [facility] Neutrophils K/uL 12:01 PM [facility] Absolute 2.1 0.9 - 2.9 05/05/2017 [facility] Lymphocytes K/uL 12:01 PM [facility] Monocytes 0.8 0.3 - 0.9 05/05/2017 [facility] Absolute K/uL 12:01 PM [facility] Absolute 0.2 0.1 - 0.5 05/05/2017 [facility] Eosinophils K/uL 12:01 PM [facility] Absolute 0.1 0.0 - 0.1 05/05/2017 [facility] Basophils K/uL 12:01 PM [facility] Specimen Anatomical Collection Method Collection Time Receive d Time (Source) Location / / Volume Laterality 05/05/2017 11:55 05/05/2017 AM [employer] 11:58 AM [employer] Alexa Ribeiro MD LAB BLOOD ORDERABLES Performing Organization Address City/State/ZIP Code Phon e Number [facility] [address] [place] [address] documented in this encounter Visit Diagnoses Diagnosis Noninfective gastroenteritis and colitis documented in this encounter
--- OUTSIDE RECORDS SUMMARY | 2022-02-06 14:16 | XMS_ITS | Clinical Summary ---
:1975 Author Organization [facility] Address [address] [place] [address] Care Team Providers Name Role Phone Unavailable Primary Care Provider Unavailable Source Comments Patient records contain information from all sites at [facility]. For routine questions regarding patient records, call [phone] during business hours, M-F 8:00 AM - 5:00 PM Central Time. Record requests for emergency care only can be directed to [phone] at any time.[facility] Social History Tobacco Use Types Packs/Day Years Used Date Smoking Tobacco: Former Sex Assigned at Date Recorded Not on file Last Filed Vital Signs Vital Sign Reading Time Taken Comments Blood Pressure 135/94 11/12/2013 8:43 PM CDT Pulse 73 11/12/2013 8:43 PM CDT Temperature - - Respiratory Rate 14 12/01/2012 8:46 AM CDT Oxygen Saturation - - Inhaled Oxygen Concentration - - Weight 113 kg (249 lb 5.4 oz) 08/27/2020 11:19 AM CDT Height 175.3 cm (5' 9) 08/27/2020 11:19 AM CDT Body Mass Index 36.82 08/27/2020 11:19 AM CDT Plan of Treatment Health Maintenance Due Date Last Done Comments CT Colonography 1975 Cologuard 1975 Colonoscopy 1975 Colorectal Cancer Screening 1975 FIT 1975 HIV Screening 1975 Hepatitis B Vaccines (1 of 3 1977 - 3-dose series) Hepatitis C Screening 1975 COVID-19 Vaccine (#1) 1975 Fasting Glucose for Diabetes 11/12/2016 11/12/2013 Screening Depression Screening (Annual 03/25/2021 PHQ-2) Influenza Vaccine (#1) 2021 Lipid (Cholesterol) Screening 07/25/2025 07/25/2020, 03/28/2018 DTaP,Tdap,and Td Vaccines (3 08/29/2031 08/28/2021, - Td or Tdap) 07/16/2011 Pneumococcal vaccine (0-64 Aged Out No lo nger eligible based years) on patient's age to complete this to [facility] Insurance Payer Benefit Plan / Subscriber ID Effective Phone Address T e Group Dates [facility] [id number] 2017-Pres [phone] [address] PPO OPEN ACCESS ent [address] [place] [address]
--- OUTSIDE RECORDS SUMMARY | 2022-02-06 14:16 | XMS_ITS | Encounter Summary ---
:1975 Author Organization [facility] Address [address] [place] [address] Care Team Providers Name Role Phone Unavailable Primary Care Provider Unavailable Reason for Visit Reason Comments Patient Education Encounter Details Date Type Department Care Team Description 08/29/2020 Clinical Communication Department of [facility] [place], [address] [place] [address] [place] [id number] [place] [address] Social History Tobacco Use Types Packs/Day Years Used Date Smoking Tobacco: Former Sex Assigned at Date Recorded Not on file documented as of this encounter Miscellaneous Notes Telephone Encounter - Mónica Covarrubias R.N. - 08/29/2020 8:54 AM CDT Hi, my name is Mónica Covarrubias R.N. from [facility] with a recommendation that you receive a monoclonal antibody infusion for the treatment of coronavirus disease 2019 (COVID-19). This medication is a combination of casirivimab and imdevimab. This medication has been recommended for you after reviewof your medical records by a multidisciplinary physician team. While most people do feel better in seven days, some people do develop serious respiratory complications which could lead to hospitalizations or even . You may have been told that there were no treatments at the time of diagnosis, butthis is a quickly developing area and this is a new [facility] recommended treatment option for you. In the next few minutes I am going to give you more information about this medication to help you understand the possible risks and benefits of taking a monoclonal antibody infusion. It is your choice to receive a monoclonal antibody infusion or stop at any time. ??? Receiving a monoclonal antibody infusion may benefit certain people with COVID-19. ??? This may decrease your risk for hospitalization by 10% to 3% ??? This may decrease the duration of your symptoms by 2 days ( from 8 days to 6 days) ??? You may be feeling well now or not that bad, however, you have been identified as someone who isat risk of developing worse symptoms, and this infusion is designed to prevent that and help you to continue feeling well. What is a monoclonal antibody infusion? These are investigational medicines used for the treatment of COVID-19, it can be used in peoplewho are: o Not in the hospital o Who do not have a new or increased oxygen requirement due to COVID-19 o Who have not tested positive for COVID-19 previously o Age 12 and older o Have mild or moderate symptoms o Weigh equal or more than 88 pounds o AND who are at high risk for developing severe COVID-19 symptoms or being hospitalized. Do you have new or increased oxygen requirement due to COVID 19? No, I do need to let you know that your vital signs will be taken on the arrival for the infusion center. If you are found to be in needof oxygen due to COVID-19 then you will not be infused with MAB rather you will be referred to an urgent care or ED for evaluation of worsening disease. Have you been previously tested and diagnosed with COVID-19? No. I need to let you know that these medications are investigational because it is still being studied.The FDA has approved the use of this medication under an EUA while data is still being collected; but early studies suggest that it reduces the risk of hospitalization. The FDA's Emergency Use Authorization (EUA) has authorized people to receive monoclonal antibody infusions for the treatment of mild COVID-19 . [facility] supports this treatment for certain people. I am sure you have heard that currently there are different variants or strands of COVID-19 that have emerged.While it is not currently possible to test your COVID swab in real time to see if you have a variant and then provide you with an infusion, we have started to review travel history to screen for patients who may need one medication or another. That being said, I need to review your travel history for the last week and known close contacts who have traveled in the last week to select the medication that would best meet your possible needs. Have you, or your close contacts, traveled outside the [place], outside or through the [facility] the [place] in the last week? No Tell your healthcare provider about all of your medical conditions, including if you: ??? Have any allergies ??? Are or plan to become ??? Are or plan to breastfeed ??? Have any serious illnesses ??? Are taking any medications (prescription, htme-fby-vfejcnl, vitamins, and herbal products) How will I receive a monoclonal antibody infusion? Monoclonal antibodies are given to you through a vein in your arm over 1-2 hours. You will be observed for 1 hour after the infusion is complete to monitor for side effects You will receive one dose of a monoclonal antibody infusion by IV infusion. What are the important possible side effects of monoclonal antibodies? The most commonly reported side effects in clinical studies have been nausea, diarrhea, dizziness, headache, itching and vomiting. Serious reactions such as allergic reactions or infusion reactions have occurred but are uncommon. Tell your health care provider right away if you have any of the following signs or symptoms of an allergic reaction: fever, chills, nausea, headache, shortness of breath, low blood pressure, wheezing, swelling of your lips face or throat, rash including hives, itching, muscle aches and dizziness. Because monoclonal antibody infusions are still being studied, not a lot of people have been given monoclonal antibody infusions yet, and it is possible that not all of the risks are known at this time. Serious and unexpected side effects may happen. Specific studies have not been conducted to address the possible risks that a monoclonal antibody infusion could interfere with your body's own ability to fight off a future infection of SARS-CoV-2 and/or whether it could reduce your body's immune response to a vaccine for SARS-CoV-2 . Talk to your healthcare provider if you have any questions including whether the risks of serious SARS-CoV-2 infection outweigh the potential risks of monoclonal antibody infusion. Patients who receive a monoclonal antibody infusion are still eligible for a COVID-19 vaccine. Patients who receive monoclonal antibody therapies are advised to delay COVID vaccination for 90 days after receiving the monoclonal therapy. Some patients have expressed concerns about disrupting their vaccine schedule by accepting the monoclonal therapy. We strongly recommend that patients offered monoclonal therapies not decline treatments due to concerns about interfering with vaccination schedules. The vaccine is not an effective treatment for an acute COVID infection but an infusion of monoclonalantibodies is and existing data shows that the risk of re- infection with COVID-19 within 90 days is low. CDC experts agree that the benefits of monoclonal therapies is greater than the risk of delaying vaccination. We wanted you to know that [facility] is encouraging you to treat the illness you have now, this will help you right away and rat exterminator while still being eligible for the vaccine. Have you had a COVID-19 vaccine? No I wanted to share with you that if you have completed your COVID19 vaccine series and then test positive while being symptomatic you are eligible to receive MAB. I am happy to share with you that since january [facility] has infused over [id number] patients witha monoclonal antibody infusion across our [place] sites. I am sharing this because we have not seen any serious side effects in the patients who chose to receive the infusion. The side effects that we are seeing are similar to patients who chose not to receive the medication at all. Patients have reported to us mild fever, diarrhea, chills for a short while, and/or hives. What other treatment choices are there? Like monoclonal antibody infusions, the FDA may allow for the emergency use of other medicines to treat people with COVID-19. Go to https://www.cfged48vrlrzkdspidruizgkne.nih.gov/ for information on the emergency use of other medicines that are not approved by FDA to treat people with COVID- 19. Your healthcare provider may talk with you about clinical trials you may be eligible for. It is your choice to be treated or not to be treated with a monoclonal antibody infusion. Should youdecide not to receive a monoclonal antibody infusion or stop it at any time, it will not change yourstandard medical care. Are you or ? No. How do I report side effects with monoclonal antibody infusion? Tell your healthcare provider right away if you have any urgent side effects. For non-urgent side effects or side effects that bothers you or does not go away please the care team coordinating your COVID care during business hours. This may be your primary care provider, your COVID care team or your remote monitoring nurse team, which ever is applicable after emergency care, if needed, has been reached. Report side effects to FDA MedWatch at www.fda.gov/medwatch, call 9-769-PNO-2316. How can I learn more? Ask your healthcare provider ??? Visit https://www.lvmpi41iqqfvxxxtsyajzgsnfv.nih.gov/ ??? Contact your local or state public health department Would you like to learn more about what an Emergency Use Authorization ( EUA)?Yes; [facility] has made these monoclonal antibody infusions available under an emergency access mechanism called an EUA. The EUA is supported by a [place] of Health and Human Service (HHS) declaration that circumstances exist to justify the emergency use of drugs and biological products during the COVID-19 pandemic. What is the cost for this medication? The medication is provided to [facility] at no charge and there is not cost of the medication to you the patient. Any associated costs with the infusion will be billed to the patient's insurance company. [facility] does not want cost to be a barrier to infusion so please let us know at your infusion if youneed more information or are worried about cost being a barrier. If you are uninsured or underinsured you will still be able to receive this medication free of cost. Please know that there has been a large review by pharmacists, and this medication is not likely to interfere with any normal medication patients may be taking. This is possible as your body processes this medication differently than standard prescription medications. Given how this medication helps your body it is better to receive this medication as soon as possible if you agree to the infusion. Please know that our team is offering and will provide you this treatment for COVID-19 as part of a larger team that is coordinating your overall care. If you have continued questions after your infusion or your symptoms get worse please reach out to the team coordinating your clinical care, either a COVID-19 focused team or your primary care provider's office. If you have a patient portal please look at your messages as there may be one awaiting your review from the clinical team coordinating your care. Do you agree/consent to receive this infusion? No; Would you be comfortable telling me why? I am feeling better now, it feels like a really bad head cold. Thank you for your time, I will connect with the rest of the team to let them know the results of this phone call. SUBJECTIVE CHIEF COMPLAINT / REASON FOR CALL Patient Education Information Discussed Monoclonal antibody PLAN Disposition/Recommendation: recommended continue engagement in self-management activities Information/Education: none - patient/caller declined Caller agreeable to plan of care: no decline The following references were used: nursing clinical judgement and other monoclonal education documented in this encounter Plan of Treatment Not on filedocumented as of this encounter Visit Diagnoses Not on filedocumented in this encounter Additional Health Concerns Infection Onset Date Last Indicated Resolved Time COVID19 08/27/2020 08/27/2020 09/16/2020 4:45 AM CDT documented as of this encounter
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
--- OUTSIDE RECORDS SUMMARY | 2022-02-06 14:17 | XMS_ITS | Encounter Summary ---
:1975 Author Organization [facility] Address [address] [place] [address] Care Team Providers Name Role Phone Unavailable Primary Care Provider Unavailable Encounter Details Date Type Department Care Team Description 08/27/2020 Admin Visit Department of Family Medicine, [address] [address] [facility] [phone] Social History Tobacco Use Types Packs/Day Years Used Date Smoking Tobacco: Former Sex Assigned at Date Recorded Not on file documented as of this encounter Last Filed Vital Signs Vital Sign Reading Time Taken Comments Blood Pressure - - Pulse - - Temperature - - Respiratory Rate - - Oxygen Saturation - - Inhaled Oxygen Concentration - - Weight 113 kg (249 lb 5.4 oz) 08/27/2020 11:19 AM CDT Height 175.3 cm (5' 9) 08/27/2020 11:19 AM CDT Body Mass Index 36.82 08/27/2020 11:19 AM CDT documented in this encounter Plan of Treatment Not on filedocumented as of this encounter Visit Diagnoses Not on filedocumented in this encounter Additional Health Concerns Infection Onset Date Last Indicated Resolved Time COVID19 Pending 08/27/2020 08/27/2020 08/28/2020 1:37 PM CDT documented as of this encounter
--- OUTSIDE RECORDS SUMMARY | 2022-02-06 14:17 | XMS_ITS | Encounter Summary ---
:1975 Author Organization [facility] Address [address] [place] [address] Care Team Providers Name Role Phone Unavailable Primary Care Provider Unavailable Reason for Visit Reason Comments COVID Nurse Line Encounter Details Date Type Department Care Team Description 08/27/2020 Clinical Communication Division of RAY James Nurse Laura [facility] Internal Primo Alvarado R.N. [facility] [place], [place] [address] [place] [address] Social History Tobacco Use Types Packs/Day Years Used Date Smoking Tobacco: Former Sex Assigned at Date Recorded Not on file documented as of this encounter Miscellaneous Notes Telephone Encounter - Primo James R.N. - 08/27/2020 9:50 AM CDT COVID-19 Nurse Line Screening ASSESSMENT Region Select appropriate region: : [place] Age Pathway Select approprite pathway: : Adult Have you had close contact* with a person who has a LABORATORY CONFIRMED case of COVID-19 in the past 14 days?: No (Continue Screening) In the last 48 hours, have you had a fever* OR symptoms that are unrelated to a preexisting illness?: New cough, New sore throat, New nausea, New headache, New muscle aches Have you received a COVID-19 vaccine in the last 72 hours? : No vaccine received (Continue Screening) Do you have any of the following urgent symptoms?: No urgent symptoms noted (Continue Screening) Have you tested positive for COVID-19 in the last 45 days?: No (Continue Screening) Are ALL the following criteria met: age between 18 to 75 yrs, main symptom is a sore throat with duration of 24 hrs to 7 days, onset of sore throat not associated with new upper respiratory symptoms*? : No, COVID testing is recommended (End Screening) Symptom Onset Date of symptom onset: 08/24/20 Testing Recommendation Endpoint Is testing recommended? : Recommended to test PLAN Endpoint recommendation: Screening positive, testing indicated, advised to be swabbed for COVID-19 Only , sent to [facility] located at [address] [place] [address]. The entrance is on the north side of the building. You must call [phone] during the hours of 7am to 6 pm (M-F) or 9 am to 4 pm (Sat and Sun) for an appointment time. You can also schedule via your Patient Online Services account. Testing hours are 8 am to 12 noon every day. When you arrive at the testing site: Remain in your vehicle and check-inby calling the number listed on the signage at the testing site or provided to you at the time you schedule your testing appointment. and Please avoid using public transportation per CDC recommendation. If you do not have personal transportation please self- quarantine until a personal transportation option is available. Care Points: -Wash hands frequently with soap and water for at least 20 seconds -If soap and water are not available, use a hand marble machine operator -Avoid touching your eyes, nose and mouth. -Clean and disinfect high-touch surfaces routinely. -Wear a mask over your nose and mouth. A cloth face cover is not a substitute for social distancing -Continue to keep about 6 feet between yourself and others. -Avoid public areas and public transportation. -Find new ways to connect with family and friends, get support and share feelings. -Seek emergent care if any of the following occur Trouble breathing Bluish lips or face Persistent pain or pressure in the chest New confusion or inability to rouse. -Notify your regular care provider of any new or worsening symptoms. Symptomatic Carepoints: Stay home and separate yourself from others and stay in a specific sick room if able. Avoid sharing personal or household items. Rest. Hydrate. Take Acetaminophen/Ibuprofen asneeded to control fever and muscles aches. Use over the counter medications as needed for other symptoms. Gargle with 8 ounces of warm salt water several times a day for throat discomfort (1/4 tsp regular salt to 8 ounces or 1 cup warm water). Do not swallow the salt water. Throat lozenges will help keep the throat lubricated. Hard candy, lollipops, and throat lozenges are equally effective. Use a humidifier. If you have received a negative COVID-19 test result and continue to have new or worsening symptoms after 72 hours please call the COVID Nurse Line to assess if you need repeat testing or reach out to your Primary Care Provider for guidance. Education: Patient/caregiver able to teach back Patient agreeable to plan of care: Yes The following references were used: [facility] novel coronavirus (COVID- 19) resources CDC web site https://www.cdc.gov/coronavirus/2019-ncov/summary.html Nursing judgement documented in this encounter Plan of Treatment Not on filedocumented as of this encounter Visit Diagnoses Not on filedocumented in this encounter
--- OUTSIDE RECORDS SUMMARY | 2022-02-06 14:17 | XMS_ITS | Encounter Summary ---
:1975 Author Organization [facility] Address [address] [place] [address] Care Team Providers Name Role Phone Unavailable Primary Care Provider Unavailable Reason for Visit Reason Onset Date Comments Testing For Upper Respiratory Virus Symptoms 08/27/2020 Encounter Details Date Type Department Care Team Description 08/27/2020 External Outreach Department of Lauri Prado And Internal Medicine in J, D.O. (Suspected) Exposure [place], [place] [address] To COVID-19 (Primary [address] [place], [place] Dx) [place] [phone] Social History Tobacco Use Types Packs/Day Years Used Date Smoking Tobacco: Former Sex Assigned at Date Recorded Not on file documented as of this encounter Progress Notes Heena Velasco R.N. - 08/27/2020 10:26 AM CDT Encounter created for symptomatic infectious disease screening with possible COVID, Influenza, RSV, and/or Group A Strep testing. documented in this encounter Plan of Treatment Not on filedocumented as of this encounter Procedures Procedure Name Priority Date/Time Associated Diagnosis Comme nts SARS CORONAVIRUS-2 Routine 08/27/2020 11:12 AM Contact With An d Results for this RNA, V CDT (Suspected) Exposure procedu re are in To COVID-19 the results section. documented in this encounter Results (ABNORMAL) SARS Coronavirus-2 RNA, V Symptomatic (08/27/2020 11:12 AM CDT) [facility] Method Time Signature SARS-CoV-2 Swab, 08/28/2020 MKTO Specimen Nasopharynx 1:36 PM CDT Source SARS CoV-2 Detected (A) Undetected 08/28/2020 MKTO RNA, TMA 1:36 PM CDT Comment: SARS-CoV-2 RNA present. ----ADDITIONAL INFORMATION---- This molecular amplification test was pe rformed using the Aptima SARS-CoV-2 assay ([employer] on the Wide Limited Release Film Distribution Funds tem under emergency use authorization (EUA) by the U.S. Food and Drug Administ ration. Fact sheets for this EUA assay can be fo und at the following links: For Healthcare Providers: https://www.Collections a.gov/media/867711/download For Patients: https://www.fda.gov/media/ 548250/download Specimen Anatomical Collection Method Collection Time Receive d Time (Source) Location / / Volume Laterality Varies 08/27/2020 11:12 08/28/2020 8:45 (Nasopharynx) AM CDT AM CDT Lauri Prado D.O. LAB MICROBIOLOGY - GENERAL O RDERABLES Performing Organization Address City/State/ZIP Code Phon e Number [facility]- [address] [place] [address] [place] [address] [address] documented in this encounter Visit Diagnoses Diagnosis Contact With And (Suspected) Exposure To COVID-19 - Primary documented in this encounter Additional Health Concerns Infection Onset Date Last Indicated Resolved Time COVID19 Pending 08/27/2020 08/27/2020 08/28/2020 1:37 PM CDT documented as of this encounter
--- OUTSIDE RECORDS SUMMARY | 2022-02-06 14:17 | XMS_ITS | Encounter Summary ---
:1975 Author Organization [facility] Address [address] [place] [address] Care Team Providers Name Role Phone Unavailable Primary Care Provider Unavailable Encounter Details Date Type Department Care Team Description 06/23/2020 Orders Only RST PCP [facility] [place] Mccullough Jr., M.D. [facility] [place] [phone] (Wo rk) Social History Tobacco Use Types Packs/Day Years Used Date Smoking Tobacco: Former Sex Assigned at Date Recorded Not on file documented as of this encounter Plan of Treatment Not on filedocumented as of this encounter Visit Diagnoses Not on filedocumented in this encounter
--- OUTSIDE RECORDS SUMMARY | 2022-02-06 14:17 | XMS_ITS | Encounter Summary ---
:1975 Author Organization [facility] Address [address] [place] [address] Care Team Providers Name Role Phone Unavailable Primary Care Provider Unavailable Reason for Visit Reason Onset Date Comments Outpatient COVID-19 Testing 02/17/2020 Encounter Details Date Type Department Care Team Description 02/17/2020 External Outreach Department of Lauri Prado Infect ion Upper Internal Medicine in J, D.O. Respiratory ([place], [place] [address] Dx) [address] [place] [phone] Social History Tobacco Use Types Packs/Day Years Used Date Smoking Tobacco: Former Sex Assigned at Date Recorded Not on file documented as of this encounter Progress Notes Aracely Rios R.N. - 02/17/2020 5:48 PM CST Encounter created for the drive-through COVID-19 testing. IC WORKS COMMISSIONER documented in this encounter Plan of Treatment Not on filedocumented as of this encounter Procedures Procedure Name Priority Date/Time Associated Diagnosis Comme nts SARS CORONAVIRUS-2 Routine 02/19/2020 1:10 PM Infection Upper Results for this RNA, V PUBLIC WORKS COMMISSIONER Respiratory procedure are i n the results section. documented in this encounter Results SARS Coronavirus-2 RNA, V Symptomatic (02/19/2020 1:10 PM PUBLIC WORKS COMMISSIONER) [facility] Method Time Signature SARS-CoV-2 Swab, 02/20/2020 MKTO Specimen Nasopharynx 8:16 PM PUBLIC WORKS COMMISSIONER Source SARS CoV-2 Undetected Undetected 02/20/2020 CHANCE RNA, TMA 8:16 PM PUBLIC WORKS COMMISSIONER Comment: SARS-CoV-2 RNA absent. This result does not rule out COVID-19 in the patient, as the sensitivity of the test depends o n the timing of the specimen collection and the quality of the specim en. Result should be correlated with patient's history and clinical presentat ion. ----ADDITIONAL INFORMATION---- This test is performed using the Aptima SARS-CoV-2 assay ([employer] which has received Emergency Use Authori zation (EUA) by the U.S. Food and Drug Administration. Fact sheets for this Emergency Use Autho rization (EUA) assay can be found at the following links: For Healthcare Providers: https://www.Formative Labs a.gov/media/455331/download For Patients: https://www.fda.gov/media/ 248888/download Specimen Anatomical Collection Method Collection Time Receive d Time (Source) Location / / Volume Laterality Varies 02/19/2020 1:10 PM 0 2:20 (Nasopharynx) PUBLIC WORKS COMMISSIONER PM PUBLIC WORKS COMMISSIONER Lauri Prado D.O. LAB MICROBIOLOGY - GENERAL O RDERABLES Performing Organization Address City/State/ZIP Code Phon e Number [facility]- [address] [place] [phone] [place] [address] [place] [address] System in [address] documented in this encounter Visit Diagnoses Diagnosis Infection Upper Respiratory - Primary documented in this encounter Additional Health Concerns Infection Onset Date Last Indicated Resolved Time COVID19 Pending 02/17/2020 02/19/2020 02/20/2020 8:17 PM PUBLIC WORKS COMMISSIONER documented as of this encounter
--- OUTSIDE RECORDS SUMMARY | 2022-02-06 14:17 | XMS_ITS | Encounter Summary ---
:1975 Author Organization [facility] Address [address] [place] [address] Care Team Providers Name Role Phone Unavailable Primary Care Provider Unavailable Encounter Details Date Type Department Care Team Description 02/19/2020 Admin Visit Department of Family Medicine, [address] [address] [facility] [phone] Social History Tobacco Use Types Packs/Day Years Used Date Smoking Tobacco: Former Sex Assigned at Date Recorded Not on file documented as of this encounter Plan of Treatment Not on filedocumented as of this encounter Visit Diagnoses Not on filedocumented in this encounter Additional Health Concerns Infection Onset Date Last Indicated Resolved Time COVID19 Pending 02/17/2020 02/19/2020 02/20/2020 8:17 PM CLINICAL ENGINEERING DIRECTOR documented as of this encounter
--- OUTSIDE RECORDS SUMMARY | 2022-02-06 14:17 | XMS_ITS | Encounter Summary ---
:1975 Author Organization [facility] Address [address] [place] [address] Care Team Providers Name Role Phone Unavailable Primary Care Provider Unavailable Encounter Details Date Type Department Care Team Description 12/01/2012 Hospital Encounter HX [facility] ME Nilda Swann M.D. Social History Tobacco Use Types Packs/Day Years Used Date Smoking Tobacco: Never Assessed Sex Assigned at Date Recorded Not on file documented as of this encounter Last Filed Vital Signs Vital Sign Reading Time Taken Comments Blood Pressure 110/76 12/01/2012 8:46 AM CDT Pulse 76 12/01/2012 8:46 AM CDT Temperature - - Respiratory Rate 14 12/01/2012 8:46 AM CDT Oxygen Saturation - - Inhaled Oxygen Concentration - - Weight - - Height - - Body Mass Index - - documented in this encounter Progress Notes Nilda Swann M.D. - 12/01/2012 8:26 AM CDT [id number] CHIEF COMPLAINT/REASON FOR VISIT Bradley is here for followup of a work injury. This occurred on the 6th he works for [employer]. HISTORY OF PRESENT ILLNESS He was stepping up onto the first step of a step ladder and he felt a pop in his left ankle and thenhe stepped back down and it popped again. He came into Emergency Room. He had an x-ray which was negative for fracture. He was given an ankle brace which was applied and crutches to crutch walk. He hasnot taken the ankle wrap off since being in the Emergency Room and he is here for followup and to get a Work Ability note. He had only worked at that place for about 2 days. He is there on a trial basis. 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 He continues to have a lot of pain when he tries to bear weight. He has been using Celexa and Ibuprofen for the pain. He has been keeping his foot elevated and icing it. PHYSICAL EXAMINATION LEFT ANKLE: On exam of the left ankle there is no bruising. There is swelling bilaterally but not excessive swelling. There is tenderness on the ankle just distal to both malleoli. He has good CMS in the toes. IMPRESSION/REPORT/PLAN Left ankle sprain. PLAN: I gave him a different ankle splint, an air splint as it was very difficult to remove and apply the splint that he had on. We had physical therapy come and give him some tips about crutch walkingsince he is having problems with that. I wrote him a Work Ability Form saying he should use crutches. He should ice and elevate his ankle and that he should not bear weight on the left foot and these restrictions are for 2 weeks. I will see him back in 2 weeks for followup and if he has any concerns prior to that time he will return sooner. Nilda Swann M.D./roberto Electronically Signed By: NILDA SWANN MD On: 12/01/2012 01:08 PM Source: [facility] Document Id: [id number] documented in this encounter Miscellaneous Notes Miscellaneous - Nilda Swann M.D. - 12/01/2012 9:24 AM CDT Ambulatory Patient Summary [id number] [place] [address] Visit Information Name: FABIANO IVORY [facility] Number: [id number] Current Date: 12/01/2012 09:24:48 Physicians Attending Provider: NILDA SWANN MD Primary Care Provider: PCP, ELSEWHERE Your Medications Here is a list of your medications. It is important to take your medications as directed. Use a pillbox or chart to help remind you to take your medications. Please let your doctor or nurse know if you have problems taking your medications. Medication/Strength Dose Route Frequency Indications/Special Instructions/Comments/Notes ibuprofen (ibuprofen 800 mg oral tablet) 800 mg Oral three times a day Take with food citalopram (CeleXA 40 mg oral tablet) 40 mg Oral once a day Attention: If you have any medications at home that are not on this list, DO NOT take them until youcontact your provider for clarification. Your Allergies & Intolerances Substance Reaction Symptoms Category Comments Ultram lightheaded Drug Ultram \ Drug Your Problem List Problem Status Onset Comments No Chronic Problems Active Your Upcoming Appointments Date Time Location Reason Provider 12/15/2012 14:00 [facility] Family Med FU ON Nilda Swann MD Your Goals/Additional instructions: Source: [facility] [employer] Document Id: [id number] Nilda Olvera M.D. - 12/01/2012 9:24 AM CDT Ambulatory Depart Summary [id number] Visit Information Name: FABIANO IVORY [facility] Number: [id number] Visit Date: 12/01/2012 09:24:47 Attending Provider: NILDA SWANN MD Primary Care Provider: PCP, FABIANO FELDER has been given the following list of medications: Your Medications It is important to take your medications as directed. Use a pill box or chart to help remind you to take your medications. Please let your doctor or nurse know if you have problems taking your medications. Medication/Strength Dose Route Frequency Indications/Special Instructions/Comments/Notes ibuprofen (ibuprofen 800 mg oral tablet) 800 mg Oral three times a day Take with food citalopram (CeleXA 40 mg oral tablet) 40 mg Oral once a day Attention: If you have any medications at home that are not on this list, DO NOT take them until youcontact your provider for clarification. Additional Information: Source: [facility] Document Id: [id number] Terence Swann Nilda M, M.D. - 12/01/2012 8:59 AM CDT Return to Work Status Return to Work Status Entered On: 12/01/2012 9:02 CDT Performed On: 12/01/2012 8:59 CDT by NILDA SWANN MD Return to Work Status Employer : [employer] Date/Time of Injury : 11/28/2012 8:59 CDT Work Injury : Yes Work Status : Other: restrictions Return to Work Start Date : 01/02/2013 CDT Restricted Work Start Date : 12/01/2012 CDT Restricted Work Stop Date : 12/15/2012 CDT NILDA SWANN MD - 12/01/2012 8:59 CDT Work Restrictions Grid Climbing Stairs : Not at all Firm Grasping : Frequently Keyboarding : Frequently Kneeling : Not at all Lifting : Not at all Operating Machinery : Not at all Reaching Above Shoulders : Frequently Reaching Below Knees : Rarely Repetitive Hand/Wrist Motions : Frequently Squatting : Not at all Standing/Walking : Not at all Twisting/Turning : Rarely NILDA SWANN MD - 12/01/2012 8:59 CDT Weightlifting Capabilities : 11-25 lbs Special Work Instructions : Elevate extremity, Ice application, Use crutches Follow Up Appointment Needed : Yes Follow Up Appointment Date : 12/15/2012 CDT Work Status Comment : Unable to bear any weight on right foot. Follow Up Physician Name : NILDA Fernando MD - 12/01/2012 8:59 CDT [facility] Document Id: [id number] CDT!28 Miscellaneous - Marta Goldsmith, L.P.N. - 12/01/2012 8:46 AM CDT Adult Associate Loan Officer Intake/History Adult Associate Loan Officer Intake/History Entered On: 12/01/2012 8:49 CDT Performed On: 12/01/2012 8:46 CDT by MARTA GOLDSMITH Intake Chief Complaint : w/c follow up DOI 11/27/12 seen in ER 11/28/12 left ankle/foot Peripheral Pulse Rate : 76 /min Respiratory Rate : 14 /min Heart Rhythm : Regular Systolic Blood Pressure : 110 mmHg Diastolic Blood Pressure : 76 mmHg NIBP Mean : 87 mmHg BP Location : Right upper extremity Blood Pressure Cuff Size : Large MARTA GOLDSMITH - 12/01/2012 8:46 CDT General Info Information Given By : Patient Languages : Italian MARTA GOLDSMITH 12/01/2012 8:46 CDT Subjective Pain Symptoms : Yes MARTA GOLDSMITH 12/01/2012 8:46 CDT Pain Pain Assessment Grid Pain 1 Location : Ankle Intensity : 4 MARTA GOLDSMITH 12/01/2012 8:46 CDT Dependent Habits Tobacco Use/Currently Using : No Smoking Status : Former smoker MARTA GOLDSMITH 12/01/2012 8:46 CDT Tobacco Use Grid Type : Cigarettes Last Use : 1997 MARTA GOLDSMITH 12/01/2012 8:46 CDT Recreational Drug Use Grid Drug Use : Past Last Use : 18 years ago MARTA GOLDSMITH 12/01/2012 8:46 CDT Source: [facility] Document Id: [id number] CDT!32 documented in this encounter Plan of Treatment Not on filedocumented as of this encounter Visit Diagnoses Not on filedocumented in this encounter
--- OUTSIDE RECORDS SUMMARY | 2022-02-06 14:17 | XMS_ITS | Encounter Summary ---
:1975 Author Organization [facility] Address [address] [place] [id number] Care Team Providers Name Role Phone Unavailable Primary Care Provider Unavailable Encounter Details Date Type Department Care Team Description 11/28/2012 Hospital Encounter HX [facility] Samantha Smith M.D. [address] [place] [address] [phone] (Wo rk) Social History Tobacco Use Types Packs/Day Years Used Date Smoking Tobacco: Never Assessed Sex Assigned at Date Recorded Not on file documented as of this encounter Last Filed Vital Signs Vital Sign Reading Time Taken Comments Blood Pressure 138/86 11/28/2012 12:55 PM CDT Pulse 75 11/28/2012 12:55 PM CDT Temperature - - Respiratory Rate 18 11/28/2012 12:55 PM CDT Oxygen Saturation - - Inhaled Oxygen Concentration - - Weight 110 kg (242 lb 8.1 oz) 11/28/2012 12:55 PM CDT Height 175 cm (5' 8.9) 11/28/2012 12:55 PM CDT Body Mass Index 35.92 11/28/2012 12:55 PM CDT documented in this encounter Discharge Summaries Lauro Fernández RSabrina. - 11/28/2012 2:34 PM CDT ED Discharge Instructions [address] [address] Name: FABIANO IVORY Date of : 1975 12:00 AM Visit Date: 11/28/2012 12:42 PM [facility] Number: [id number] Address: [address] [place] [address] Primary Care Provider: PCP, ELSEWHERE IMPORTANT: [facility] in [place] would like to thank you for allowing us to assist you with your healthcare needs. The following includes patient education materials and informationregarding your injury/illness. Chief Complaint: Ankle; WC - HURT LEFT ANKLE AND FOOT Follow-Up Instructions: With: Address: When: ROGER SWANN [address] [place] [address] Business (1) 12/01/2012 08:30:00 Comments: With: Address: When: USE CRUTCHES FOR 3-5 DAYS , NO WEIGHT BEARING FOR THREE DAYS , ICE LOCALLY 20 MINUTES THREE TIMES PER DAY FOR 3 DAYS , ELEVATE LEG MUCH POSSIBLE, USE CRUTCHES Within As Needed Comments: With: Address: When: ELSEWHERE PCP Within As Needed Comments: With: Address: When: Follow up at [facility] ON SATURDAY OR SATURDAY IN THE CLINIC FOR FOLLOW UP VISIT , FURTHER WORKRECOMMENDATIONS AND POSSIBLE REFERRAL TO PHYSICAL THERAPY. Within As Needed Comments: Patient Education Materials: Work Release Form __ This notice verifies that your employee, _[employer] , was seen in our facilityon 11/28/12_/__/____. He/She may return to work on __/__/____ with the following restrictions: [ ] None [ ] No heavy Lifting (Over __ pounds) [ ] No prolonge standing [ ] Desk Work Only [ X ] Other: Restrictions:PATIENT UNABLE TO WORK TILL 12/02/12 SECONDARY TO ANKLE INJURY, HE WLL FOLLOW UP IN CLINIC ON SATURDAY OR SATURDAY FOR FURTHER WORK RECOMMNDATIONS These restrictions apply through __/__/____ or until follow up appointment as scheduled. After this date, the patient should be able to participate fully in all work duties. NOTE: If symptoms continue and the employee is unable to perform the full duties of the job by the return to work date, please advise the employee to return to this facility or make an appointment withthe referral physician for further evaluation. ___MD JOB _11/28/12 Provider Signature Date [id number] SPRAIN:ANKLE [w/ x-ray] A sprain is an injury to the ligaments or capsule that holds a joint together. There are no broken bones. Most sprains take from four to six weeks to heal. If the ligament is completely torn (severe sprain), it can take several months to recover. Mild to Moderate sprains may be treated with an elastic wrap or an in-shoe splint to provide supportand prevent re-injury. A mild sprain may not require any additional support. A severe sprain may require surgery to repair. HOME CARE: 1. Stay off the injured leg as much as possible until you can walk on it without pain. If you have alot of pain with walking, crutches or a walker may be prescribed. (These can be rented or purchased at many pharmacies and surgical or orthopedic supply stores). Follow your doctor's advice regarding when to begin bearing weight on that leg. 2. Keep your leg elevated to reduce pain and swelling. When sleeping, place a pillow under the injured leg. When sitting, support the injured leg so it is level with your waist. This is very important during the first 48 hours. 3. Apply an ice pack (ice cubes in a plastic bag, wrapped in a towel) over the injured area for 20 minutes every 1-2 hours the first day. You can place the ice pack directly over the splint/cast. If you were given a boot, open it to apply the ice pack. Continue with ice packs 3-4 times a day for the next two days, then as needed for the relief of pain and swelling. 4. You may use acetaminophen (Tylenol) or ibuprofen (Motrin, Advil) to control pain, unless another pain medicine was prescribed. [NOTE: If you have chronic liver or kidney disease or ever had a stomach ulcer or GI bleeding, talk with your doctor before using these medicines.] 5. You may return to sports after healing, when you can run without pain. 6. A sprained ankle is at risk for re-injury during the first six weeks. During that time, protect your ankle with an in-shoe splint that prevents tilting of your ankle from side to side. This is very important if you do active work or play sports during that time. FOLLOW UP with your doctor, or as advised, if you are not starting to improve within the next five days. [NOTE: If X-rays were taken, they will be reviewed by a radiologist. You will be notified of any newfindings that may affect your care.] GET PROMPT MEDICAL ATTENTION if any of the following occur: ?? The plaster cast or splint gets wet or soft ?? The fiberglass cast or splint gets wet and does not dry for 24 hours ?? Pain or swelling increases, or redness appears ?? Toes become cold, blue, numb or tingly Re-injure your ankle ?? [id number] [place] [address]. All rights reserved. This information is not intended as a substitute for professional medical care. Always follow your healthcare professional's instructions. ED Tests and Procedures: Order Status XR Ankle Left 3 or more views Completed Discharge Prescriptions & Home Medications: Medication/Strength Dose Route Frequency Indications/Special Instructions/Comments/Notes ibuprofen (ibuprofen 800 mg oral tablet) 800 mg Oral three times a day Take with food citalopram (CeleXA 40 mg oral tablet) 40 mg Oral once a day Comment: Attention: If you have any medications at home not on this list, DO NOT take them until you contact your provider for clarification. Medication Reconciliation: Reconciliation is a process of identifying the most accurate list of all medications a patient is taking - including name, dosage, frequency, and route - and using this list to provide to the patient information about how to take those medications. FABIANO IVORY or mary carmenee has reviewed the home medications you have listed with us. Review the following instructions: You have NOT received any prescriptions and you have told us you are not currently taking any home medications You have NOT received any prescriptions. You have been provided a discharge medications list and you may CONTINUE taking your medications as previously prescribed by your regular providers. You have received the listed prescriptions and BEGIN all listed prescriptions as directed. Since you have listed no home medications, please check with your family doctor if you are taking any other medications. You have received the listed prescriptions and BEGIN all listed prescriptions as directed. Youhave been provided a discharge medications list and you may CONTINUE all home medications as previously prescribed by your regular providers. You have received the listed prescriptions and BEGIN all listed prescriptions as directed. Youhave been provided a discharge medications list. The following CHANGES have been made to your medication list; Otherwise, CONTINUE all home medications as previously prescribed by your regular provider. IMPORTANT: We examined and treated you today on an emergency basis only. This was not a substitute for, or an effort to provide, complete medical care. In most cases, you must let your doctor check youagain. Tell your doctor about any new or lasting problems. We cannot recognize and treat all injuries or illnesses in one Emergency Department visit. If you had special tests, such as EKG's or X- rays, we will review them again within 24 hours. We will call you if there are any new suggestions. Please follow the instructions above carefully. If you are being transferred to another facility your followup plan of care will be determined by the receiving facility. If you are a patient that is being discharged from the Emergency Department after receiving narcotics or other medications that may impair your judgment you may be a risk to yourself or others if you operate a motor vehicle. We recommend that you arrange a ride home with a responsible libertarian. ICACHORRO JAYSON , or responsible libertarian have received this information and my questions have beenanswered. I have discussed any challenges I see with this plan with the nurse or physician. Patient Signature or Responsible Green Party/Relationship Date Time Provider Signature Date Time Medication Reconciliation: Reconciliation is a process of identifying the most accurate list of all medications a patient is taking - including name, dosage, frequency, and route - and using this list to provide to the patient information about how to take those medications. FABIANO IVORY or mary carmenee has reviewed the home medications you have listed with us. Review the following instructions: You have NOT received any prescriptions and you have told us you are not currently taking any home medications You have NOT received any prescriptions. You have been provided a discharge medications list and you may CONTINUE taking your medications as previously prescribed by your regular providers. You have received the listed prescriptions and BEGIN all listed prescriptions as directed. Since you have listed no home medications, please check with your family doctor if you are taking any other medications. You have received the listed prescriptions and BEGIN all listed prescriptions as directed. Youhave been provided a discharge medications list and you may CONTINUE all home medications as previously prescribed by your regular providers. You have received the listed prescriptions and BEGIN all listed prescriptions as directed. Youhave been provided a discharge medications list. The following CHANGES have been made to your medication list; Otherwise, CONTINUE all home medications as previously prescribed by your regular provider. IMPORTANT: We examined and treated you today on an emergency basis only. This was not a substitute for, or an effort to provide, complete medical care. In most cases, you must let your doctor check youagain. Tell your doctor about any new or lasting problems. We cannot recognize and treat all injuries or illnesses in one Emergency Department visit. If you had special tests, such as EKG's or X- rays, we will review them again within 24 hours. We will call you if there are any new suggestions. Please follow the instructions above carefully. If you are being transferred to another facility your followup plan of care will be determined by the receiving facility. If you are a patient that is being discharged from the Emergency Department after receiving narcotics or other medications that may impair your judgment you may be a risk to yourself or others if you operate a motor vehicle. We recommend that you arrange a ride home with a responsible libertarian. ICACHORRO JAYSON , or responsible libertarian have received this information and my questions have beenanswered. I have discussed any challenges I see with this plan with the nurse or physician. Patient Signature or Responsible Green Party/Relationship Date Time Provider Signature Date Time This document has images extracted. Please consider using [employer] for all your patient education needs. Source: [employer] Document Id: [id number] Lauro Fernández R.N. - 11/28/2012 2:34 PM CDT ED Depart Summary Provider Role Provider Contact Time SEBAS DUNHAM MD ED Provider 11/28/12 12:43 LAURO FERNÁNDEZ RN ED Nurse 11/28/12 12:43 Source: [employer] Document Id: [id number] documented in this encounter ED Notes Lauro Fernández R.N. - 11/28/2012 2:35 PM CDT ED Treatments and Procedures ED Treatments and Procedures Entered On: 11/28/2012 14:36 CDT Performed On: 11/28/2012 14:35 CDT by LAURO FERNÁNDEZ speeder frame tender Tx Comments : air cast applied and crutches LAURO FERNÁNDEZ RN - 11/28/2012 14:35 CDT Source: [employer] Document Id: [id number] CDT!3 Lauro Fernández R.N. - 11/28/2012 1:46 PM CDT ED Disposition Summary ED Disposition Summary Entered On: 11/28/2012 13:46 CDT Performed On: 11/28/2012 13:46 CDT by LAURO FERNÁNDEZ RN ED Disposition Summary Accompanied By : Alone Mode of Discharge : Ambulatory Printed Discharge Instructions Given to Patient : Yes Patient Status at Discharge from ED : Unchanged LAURO FERNÁNDEZ RN - 11/28/2012 13:46 CDT Source: [employer] Document Id: [id number] CDT!6 Lauro Fernández R.N. - 11/28/2012 1:46 PM CDT ED Pain Assessment ED Pain Assessment Entered On: 11/28/2012 13:46 CDT Performed On: 11/28/2012 13:46 CDT by LAURO FERNÁNDEZ RN Pain Assessment Pain Symptoms : Yes LAURO FERNÁNDEZ RN - 11/28/2012 13:46 CDT Source: [employer] Document Id: [id number] CDT!3 Sebas Dunham M.D. - 11/28/2012 1:06 PM CDT Ankle injury - Minor Patient: FABIANO IVORY Age: 37 years Sex: Male : 1975 Author: SEBAS DUNHAM MD Attachments: None Associated Diagnosis: Ankle sprain 845.00 Basic Information Time seen: Immediately upon arrival. History source: Patient. Arrival mode: Private vehicle. History limitation: None. Additional information: Chief Complaint from Nursing Triage Note : Chief Complaint Description. 11/28/2012 13:01 CDT Chief Complaint Description see triage 11/28/2012 12:55 CDT Chief Complaint Description 37 year old presents to ER with an injury at 89 at work. He was trying to stand on step stool and felt ankle and foot pop. L Ankle pain, swollen and burning History of Present Illness The patient presents with left, ankle injury. Type of injury: twisting. Location: right. The character of symptoms is pain and swelling. The degree at present is moderate. There are exacerbating factors including movement, transfer, weight bearing, walking and palpation. There are relieving factors inc luding ice, immobilization and elevation. The location where the incident occurred was at work. Associated symptoms: none. Patient states that the injury happened at work,he was going on a step ladder when he twisted his left ankle at work while working for [employer].. No other injuries.. Review of Systems Additional review of systems information: All other systems reviewed and otherwise negative. Health Status Allergies: . Allergic Reactions (Selected) Severity Not Documented Ultram- Lightheaded and \. Past Medical/ Family/ Social History Medical history: . No active or resolved past medical history items have been selected or recorded. Surgical history: . No active procedure history items have been selected or recorded. Family history: . No family history items have been selected or recorded. Physical Examination Vital Signs Vital Signs. 11/28/2012 12:55 CDT Temperature Core 36.8 DegC Peripheral Pulse Rate 75 /min Respiratory Rate 18 /min SpO2 97 % Systolic Blood Pressure 138 mmHg Diastolic Blood Pressure 86 mmHg Mean Arterial Pressure 103 mmHg General: Alert and mild distress. Skin: Warm and moist. Head: Normocephalic and atraumatic. Neck: Supple. Eye: Pupils are equal, round and reactive to light, extraocular movements are intact and normal conjunctiva. Cardiovascular: Regular rate and rhythm. Respiratory: Lungs are clear to auscultation and respirations are non-labored. Musculoskeletal: Ankle/foot left, lateral, medial, malleolus, tenderness, swelling,Drawer sign is negative., Tenderness at the fibulo calcaneal or fibulotaler ligament. and Distal sensations and pulsesare intact. Neurological: Alert and oriented to person, place, time, and situation, No focal neurological deficit observed, CN II-XII intact, normal sensory observed, normal motor observed and normal speech observed. Lymphatics: No lymphadenopathy. Psychiatric: Cooperative and appropriate mood & affect. Medical Decision Making Differential Diagnosis:Ankle sprain, ankle fracture, foot sprain. OrdersLaunch Orders. Radiology: XR Ankle Left 3 or more views (Order Processing): 11/28/2012 13:11 CDT, pain , swelling, Stat, Patient Bed, Once, 11/28/2012 13:11 CDT, [facility] ED Ankle x-ray findings Reason For Exam pain , swelling Report 28-Nov-2012 13:30:00 Exam: L Ankle 3vw AP/Lat/Mortise Indications: pain , swelling 28-Nov-2012 13:32 CA Left Ankle 3vw AP/Lat/Mortise: Negative left ankle. Valencia Driscoll MD. [phone] 28-Nov-2012 13:32 Signature Line Final Dictated: 11/28/2012 1:32 pm . Reexamination/ Reevaluation Vital signs results included from flowsheet : Vital Signs 11/28/2012 12:55 CDT Temperature Core 36.8 DegC Peripheral Pulse Rate 75 /min Respiratory Rate 18 /min SpO2 97 % Systolic Blood Pressure 138 mmHg Diastolic Blood Pressure 86 mmHg Mean Arterial Pressure 103 mmHg Pain status: decreased. Assessment: exam improved. Impression and Plan Diagnosis Ankle sprain 845.00 (Discharge, Emergency medicine, Medical) Plan Condition: Improved, Stable. Disposition: Discharged: to home. Patient was given the following educational materials: WORK_RELEASE_FORM (CUSTOM), SPRAIN ANKLE (w/ x-ray). Limitations: No work. Follow up with: ROGER SWANN 12/01/2012 08:30:00; USE CRUTCHES FOR 3-5 DAYS , NO WEIGHT BEARING FOR THREE DAYS , ICE LOCALLY 20 MINUTES THREE TIMES PER DAY FOR 3 DAYS , ELEVATE LEG MUCH POSSIBLE, USE CRUTCHES Within As Needed; ELSEWHERE PCP Within As Needed; Follow up at [facility] ON SATURDAY OR SATURDAY IN THE CLINIC FOR FOLLOW UP VISIT , FURTHER WORK RECOMMENDATIONS AND POSSIBLE REFERRAL TO PHYSICAL THERAPY. Within As Needed. Counseled: Patient, Regarding diagnosis, Regarding diagnostic results, Regarding treatment plan, Regarding prescription, Patient indicated understanding of instructions. Electronically Signed By: SEBAS DUNHAM MD On: 11/28/2012 04:52 PM Modified by and Electronically Signed by: SEBAS DUNHAM MD On: 11/28/2012 04:23 PM Source: [facility] POWERCHART Document Id: [id number]} Lauro Fernández R.N. - 11/28/2012 1:01 PM CDT ED Primary Assessment Document Has Been Updated ED Primary Assessment Entered On: 11/28/2012 13:03 CDT Performed On: 11/28/2012 13:01 CDT by LAURO FERNÁNDEZ RN Reason For Visit (As Of: 11/28/2012 13:03:36 CDT) Diagnoses(Active) Ankle Date: 11/28/2012 ; Diagnosis Type: Reason For Visit ; Confirmation: Complaint of ; Clinical Dx: Ankle ; Classification: Medical ; Clinical Service: Non-Specified ; Code: SNOMED CT ; Probability: 0 ; Diagnosis Code: 3559461 Triage Chief Complaint Description : see triage Mode of Arrival ED : Private vehicle, Ambulatory Track : Medical Languages : Ecuadorean Treatments Prior to Arrival : Ice to affected area LAURO FERNÁNDEZ RN - 11/28/2012 13:01 CDT Pain Assessment Pain Symptoms : Yes LAURO FERNÁNDEZ RN - 11/28/2012 13:01 CDT Respiratory Airway : Patent Respirations : Unlabored Respiratory Pattern : Regular LAURO FERNÁNDEZ RN - 11/28/2012 13:01 CDT Cardiovascular Heart Rhythm : Regular Skin Color : Normal for ethnicity Skin Description : Dry Skin Temperature : Warm LAURO FERNÁNDEZ RN - 11/28/2012 13:01 CDT Neurological Last Well Time Known : Not applicable Level of Consciousness : Alert Orientation : Oriented x 3 Characteristics of Speech : Appropriate for age LAURO FERNÁNDEZ RN - 11/28/2012 13:01 CDT ED Psychosocial Affect/Behavior : Calm Domestic Abuse Concerns : None LAURO FERNÁNDEZ RN - 11/28/2012 13:01 CDT Gastrointestinal Nutrition ED : Adequate LAURO FERNÁNDEZ RN - 11/28/2012 13:01 CDT Integumentary Integumentary Patient Stated Symptoms : None Skin Turgor : Elastic Skin Integrity : Intact Mucous Membrane Color : [place] Mucous Membrane Description : Moist Skin Color : Normal for ethnicity Skin Description : Dry Skin Temperature : Warm LAURO FENRÁNDEZ RN - 11/28/2012 13:01 CDT Musculoskeletal Fall Prevention Education Provided : LAURO HERZOG RN - 11/28/2012 13:01 CDT Musculoskeletal Joint Assessment Grid Joint Assessment #1 Location : Ankle, left Assessment : Edema present, Tender to palpation Comment : CMS + Pulse palpable LAURO FERNÁNDEZ RN - 11/28/2012 13:01 CDT Social Habits Tobacco Use/Currently Using : No Smoking Status : Never smoker LAURO FERNÁNDEZ RN - 11/28/2012 13:01 CDT Alcohol Use Grid Alcohol Use : Yes Frequency : Occasionally LAURO FERNÁNDEZ RN - 11/28/2012 13:01 CDT Recreational Drug Use Grid Drug Use : Past Last Use : 18 years ago LAURO FERNÁNDEZ RN - 11/28/2012 13:01 CDT Source: [employer] Document Id: [id number] CDT!55 Lauro Fernández R.N. - 11/28/2012 12:55 PM CDT ED Triage Assessment Document Has Been Updated ED Triage Assessment Entered On: 11/28/2012 13:00 CDT Performed On: 11/28/2012 12:55 CDT by LAURO FERNÁNDEZ RN Reason For Visit (As Of: 11/28/2012 13:00:37 CDT) Diagnoses(Active) Ankle Date: 11/28/2012 ; Diagnosis Type: Reason For Visit ; Confirmation: Complaint of ; Clinical Dx: Ankle ; Classification: Medical ; Clinical Service: Non-Specified ; Code: SNOMED CT ; Probability: 0 ; Diagnosis Code: [id number] Triage Chief Complaint Description : 37 year old presents to ER with an injury at [address]14 at work. Hewas trying to stand on step stool and felt ankle and foot pop. L Ankle pain, swollen and burning Information Given By : Patient Accompanied By : Alone Mode of Arrival ED : Private vehicle, Ambulatory Track : Medical Languages : Ecuadorean Vital Signs Assessed : Yes Treatments Prior to Arrival : Ice to affected area LAURO FERNÁNDEZ RN - 11/28/2012 12:55 CDT Vital Signs Temperature Core : 36.8 DegC(Converted to: 98.2 DegF) Peripheral Pulse Rate : 75 /min Respiratory Rate : 18 /min Systolic Blood Pressure : 138 mmHg Diastolic Blood Pressure : 86 mmHg NIBP Mean : 103 mmHg SpO2 : 97 % Oxygen Therapy : Room air Height : 175 cm(Converted to: 5 ft 9 inch(es)) Actual Weight : 110 kg Actual Weight Conversion to Pounds : 242 lb Dosing Weight : 110 kg Dosing Weight Conversion to Pounds : 242 lb Body Mass Index : 35.92 kg/m2 LAURO FERNÁNDEZ RN - 11/28/2012 12:55 CDT Pain Assessment Pain Symptoms : Yes LAURO FERNÁNDEZ RN - 11/28/2012 12:55 CDT Pain Pain Assessment Grid Pain 1 Location : Ankle Laterality : Left Intensity : 5 LAURO FERNÁNDEZ RN - 11/28/2012 12:55 CDT Comfort Measures Comfort Measures Grid Rest : Yes LAURO FERNÁNDEZ RN - 11/28/2012 12:55 CDT ED Physician Notification Time ED Physician Notification Time : 11/28/2012 12:59 CDT LAURO FERNÁNDEZ RN - 11/28/2012 12:55 CDT LILIAN LILIAN Level 1 : No LILIAN Level 2 : No LILIAN Level 3 : One LAURO FERNÁNDEZ RN - 11/28/2012 12:55 CDT DCP GENERIC CODE Tracking Acuity : 3 -Urgent Tracking Group : [facility] ED LAURO FERNÁNDEZ RN - 11/28/2012 12:55 CDT Allergy (As Of: 11/28/2012 13:00:37 CDT) Allergies (Active) Ultram Estimated Onset Date: Unspecified ; Reactions: lightheaded, \ ; Created By: LAURO FERNÁNDEZ RN; Reaction Status: Active ; Category: Drug ; Substance: Ultram ; Type: Allergy ; Updated By: LAURO FERNÁNDEZ RN; Reviewed Date: 11/28/2012 13:00 CDT ID Screen Drug Resistant Organism : No LAURO FERNÁNDEZ RN - 11/28/2012 12:55 CDT Immunizations Immunizations Current : Yes LAURO FERNÁNDEZ RN - 11/28/2012 12:55 CDT Source: [facility] POWERCHART Document Id: [id number] CDT!49 documented in this encounter Miscellaneous Notes Miscellaneous - Lauro Fernández RJ CarlosNJ Carlos - 11/28/2012 1:46 PM CDT Valuables/Belongings Valuables/Belongings Entered On: 11/28/2012 13:46 CDT Performed On: 11/28/2012 13:46 CDT by LAURO FERNÁNDEZ RN Valuables/Belongings Home Medication Disposition : None brought in with patient LAURO FERNÁNDEZ RN - 11/28/2012 13:46 CDT Source: [facility] Material Mix Document Id: [id number] CDT!3 Miscellaneous - Lauro Fernández R.N. - 11/28/2012 12:42 PM CDT Facility Charge Ticket Facility Charge Ticket Entered On: 11/28/2012 13:46 CDT Performed On: 11/28/2012 12:42 CDT by LAURO FERNÁNDEZ RN Facility Charge TVL Level Translated RTF : Ankle, Ankle injury - Minor TVL:3 TVL Level for Facility Charge Ticket : Level 3 Mode of Arrival ED : Private vehicle, Ambulatory Arrival Mode Calc : 9 [facility] Mode of Arrival Interpreted : Standard [facility] Process Management : None Order Management RTF : Xray XR Ankle Left 3 or more views,11/28/12 13:11,SEBAS DUNHAM MD Completed [facility] Order Management : Xray - plain films 30 Minutes Critical Care : No Nursing Notes RTF : Triage Forms ED Triage Assessment,11/28/12 12:55,LAURO FERNÁNDEZ RN Nursing Notes ED Primary Assessment,11/28/12 13:01,LAURO FERNÁNDEZ RN ED Pain Assessment,11/28/12 13:46,LAURO FERNÁNDEZ RN [facility] Nursing Assessment : Triage and 1-2 nursing assessments [facility] Disposition : Discharge [facility] Total Points with Diagnosis Control : 6 [facility] Visit Level : 25528 Level 3 Treatments Prior to Arrival : Ice to affected area LAURO FERNÁNDEZ RN - 11/28/2012 13:46 CDT Source: [facility] Material Mix Document Id: [id number] CDT!17 documented in this encounter Plan of Treatment Not on filedocumented as of this encounter Visit Diagnoses Not on filedocumented in this encounter
--- OUTSIDE RECORDS SUMMARY | 2022-02-06 14:17 | XMS_ITS | Encounter Summary ---
:1975 Author Organization [facility] Address [address] [place] [address] Care Team Providers Name Role Phone Unavailable Primary Care Provider Unavailable Reason for Visit Reason Onset Date Comments Testing For Upper Respiratory Virus Symptoms 03/15/2020 Encounter Details Date Type Department Care Team Description 03/15/2020 External Outreach Department of [facility] Lauri Prado [facility] Medicine, [facility] Arya Villalobos Respiratory (Primary Building, in [address]) [place], [place] [address] [facility] [address] [place], [place] [phone] (Work) [phone] Social History Tobacco Use Types Packs/Day Years Used Date Smoking Tobacco: Former Sex Assigned at Date Recorded Not on file documented as of this encounter Progress Notes Meryl Alarcon R.N. - 03/15/2020 3:08 PM CST Encounter created for symptomatic infectious disease screening with possible COVID, Influenza, and RSV testing. 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
--- OUTSIDE RECORDS SUMMARY | 2022-02-06 14:17 | XMS_ITS | Encounter Summary ---
:1975 Author Organization [facility] Address [address] [place] [address] Care Team Providers Name Role Phone Unavailable Primary Care Provider Unavailable Encounter Details Date Type Department Care Team Description 05/14/2013 Hospital Encounter HX [facility] Julian Huggins, P.A.-C. [address] [place] [address] [phone] (Wo rk) Social History Tobacco Use Types Packs/Day Years Used Date Smoking Tobacco: Never Assessed Sex Assigned at Date Recorded Not on file documented as of this encounter Progress Notes Tori Huggins - 05/14/2013 1:10 PM CST [id number] Review of health history, noise exposure for Fabiano Schwartz was performed. Qualified for preplacement pending further data. 1) Hx of Work Comp claim on left elbow years ago through [employer] in [place] and seen at [facility] clinic there. Had an elbow contusion, seen for 1 visit and cleared medically on follow up visit withoutany referrals/surgery/injections. No permanent work restrictions. CARLITOS obtained, await paperwork to confirm medically cleared. 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 Told no follow up/further studies needed. No restrictions. 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 [facility] Document Id: [id number] documented in this encounter Plan of Treatment Not on filedocumented as of this encounter Visit Diagnoses Not on filedocumented in this encounter
--- OUTSIDE RECORDS SUMMARY | 2022-02-06 14:17 | XMS_ITS | Encounter Summary ---
:1975 Author Organization [facility] Address [address] [place] [id number] Care Team Providers Name Role Phone Unavailable Primary Care Provider Unavailable Reason for Visit Reason Comments COVID Inquiry Encounter Details Date Type Department Care Team Description 08/27/2020 Clinical Communication Central Appointment FABIANA [facility] in [address] [address] Social History Tobacco Use Types Packs/Day Years Used Date Smoking Tobacco: Former Sex Assigned at Date Recorded Not on file documented as of this encounter Miscellaneous Notes Telephone Encounter - Shekhar Mcneal - 08/27/2020 9:47 AM CDT What is the purpose of the call?: Requesting Testing Only Request Testing In the past 14 days are any of the following symptoms new to you and not related to an existing health condition?: New sore throat, New cough, New shortness of breath, New headache, New nausea Because of symptoms, transfer patient to: : [place] COVID Nurse Line (End Screening) Testing Recommendation Endpoint Is testing recommended? : Transferred to nursing call line Plan: Endpoint recommendation: Transferred to Nursing/COVID Line/Care Team *Reminder if sending patient for testing in [facility] or [facility], route encounter to the correct testing pool. documented in this encounter Plan of Treatment Not on filedocumented as of this encounter Visit Diagnoses Not on filedocumented in this encounter
--- OUTSIDE RECORDS SUMMARY | 2022-02-06 14:17 | XMS_ITS | Encounter Summary ---
:1975 Author Organization [facility] Address [address] [place] [address] Care Team Providers Name Role Phone Unavailable Primary Care Provider Unavailable Encounter Details Date Type Department Care Team Description 03/17/2020 Admin Visit Department of Family Medicine, [address] in [address] [phone] Social History Tobacco Use Types Packs/Day Years Used Date Smoking Tobacco: Former Sex Assigned at Date Recorded Not on file documented as of this encounter Plan of Treatment Not on filedocumented as of this encounter Visit Diagnoses Not on filedocumented in this encounter Additional Health Concerns Infection Onset Date Last Indicated Resolved Time COVID19 Pending 03/15/2020 03/15/2020 03/17/2020 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
--- OUTSIDE RECORDS SUMMARY | 2022-02-06 14:17 | XMS_ITS | Encounter Summary ---
:1975 Author Organization [facility] Address [address] [place] [address] Care Team Providers Name Role Phone Unavailable Primary Care Provider Unavailable Encounter Details Date Type Department Care Team Description 03/14/2020 Clinical Communication Department of Family [facility], Pcp Medicine in [place], [place] [address] [place] [phone] Social History Tobacco Use Types Packs/Day Years Used Date Smoking Tobacco: Former Sex Assigned at Date Recorded Not on file documented as of this encounter Plan of Treatment Not on filedocumented as of this encounter Visit Diagnoses Not on filedocumented in this encounter
--- OUTSIDE RECORDS SUMMARY | 2022-02-06 14:17 | XMS_ITS | Encounter Summary ---
:1975 Author Organization [facility] Address [address] [place] [id number] Care Team Providers Name Role Phone Unavailable Primary Care Provider Unavailable Encounter Details Date Type Department Care Team Description 11/12/2013 Hospital Encounter HX [facility] ED Armand Cali , JamesAChristopher [address] [place] [address] [phone] (Wo rk) Social History Tobacco Use Types Packs/Day Years Used Date Smoking Tobacco: Never Assessed Sex Assigned at Date Recorded Not on file documented as of this encounter Last Filed Vital Signs Vital Sign Reading Time Taken Comments Blood Pressure 135/94 11/12/2013 8:43 PM CDT Pulse 73 11/12/2013 8:43 PM CDT Temperature - - Respiratory Rate - - Oxygen Saturation - - Inhaled Oxygen Concentration - - Weight - - Height 174 cm (5' 8.5) 11/12/2013 8:43 PM CDT Body Mass Index - - documented in this encounter Discharge Summaries Evangelina Penn RSabrina. - 11/12/2013 10:40 PM CDT ED Discharge Instructions [address] [address] Name: FABIANO SCHWARTZ Date of : 1975 12:00 AM Visit Date: 11/12/2013 8:32 PM [facility] Number: [phone] Address: [address] [place] [phone] Primary Care Provider: PCP, ELSEWHERE IMPORTANT: [facility] in [place] would like to thank you for allowing us to assist you with your healthcare needs. The following includes patient education materials and informationregarding your injury/illness. Diagnosis: Fatigue NOS Follow-Up Instructions: With: Address: When: Follow up with primary care provider Within As Needed Comments: If new or worsening symptoms Your Upcoming Appointments: Date Time Location Reason Provider No Appointments found Patient Education Materials: [id number] WEAKNESS [Uncertain cause] Based on your exam today, the exact cause of your weakness is not certain. However, your weakness does not seem to be a sign of a serious illness at this time. Sometimes the signs of a serious illness take more time to appear. Therefore, please watch for the warning signs listed below. HOME CARE: 1) Rest at home today. Do not over-exert yourself. 2) Take your medicine as prescribed. 3) For the next few days, drink extra fluids (unless your doctor wants you to restrict fluids for other reasons). Do not skip meals. FOLLOW UP with your doctor or as advised if you are not starting to feel better within TWO days. GET PROMPT MEDICAL ATTENTION if any of the following occur: ?? Worsening of your symptoms ?? Chest, arm, neck, jaw or upper back pain ?? Dizziness or fainting ?? Trouble breathing ?? Unable to eat or drink normal amounts ?? Nausea, frequent vomiting, frequent diarrhea ?? Abdominal pain ?? Numbness or weakness of the face, one arm or one leg ?? Slurred speech, confusion, trouble speaking, walking or seeing ?? Blood in vomit or stool (black or red color) Fever of 100.4?? F (38?? C) or higher, or as directed by your healthcare provider ?? [address] [address]. All rights reserved. This information is not intended as a substitute for professional medical care. Always follow your healthcare professional's instructions. Work Release Form __ This notice verifies that your employee, ___Fabiano Schwartz , was seen in our facility on __/__/____. He is excused from work through 11/13/13. NOTE: If symptoms continue and the employee is unable to perform the full duties of the job by the return to work date, please advise the employee to return to this facility or make an appointment withthe referral physician for further evaluation. _11/12/13 Provider Signature Date ED Tests and Procedures: Order Status Thyroid Stimulating Hormone Completed Automated Diff-5 Part Completed CBC (includes Auto Differential) Completed Comprehensive Metabolic Panel Completed Lyme Disease Serology-[place] [address] Ordered Discharge Prescriptions & Home Medications: Medication/Strength Dose Route Frequency Indications/Special Instructions/Comments/Notes ibuprofen (ibuprofen 800 mg oral tablet) 800 mg Oral three times a day Take with food *citalopram (CeleXA 40 mg oral tablet) 40 mg Oral once a day * You have let us know that you are not taking this medication as listed. Please talk with your primary care provider or the health care provider who prescribed the medication as soon as possible. Comment: Attention: If you have any medications at home not on this list, DO NOT take them until you contact your provider for clarification. Give a copy of your medication list to your primary care provider. Update your medication list any time medications or doses are changed and carry your medication list at all times in case of emergency. Medication Reconciliation: Reconciliation is a process of identifying the most accurate list of all medications a patient is taking - including name, dosage, frequency, and route - and using this list to provide to the patient information about how to take those medications. FABIANO SCHWARTZ or mary carmenee has reviewed the home [...] a ride home with a responsible libertarian. CACHORRO Sierra JAYSON DANIEL , or responsible libertarian have received this information and my questions have been answered. I have discussed any challenges I see [...] about how to take those medications. FABIANO SCHWARTZ or designee has reviewed the home medications you have [...] a ride home with a responsible libertarian. I, FABIANO SCHWARTZ , or responsible libertarian have received this information and my questions have been answered. I have discussed any challenges I see with this plan with the nurse or physician. Patient Signature or Responsible Green Party/Relationship Date Time Provider Signature Date Time Source: JAN[facility] SleepOutCHART Document Id: [id number] Evangelina Penn R.N. - 11/12/2013 10:40 PM CDT ED Depart Summary [facility] Emergency Department Clinical Discharge Summary PERSON INFORMATION Name FABIANO SCHWARTZ Age 38 Years 1975 12:00 AM Sex Male Language Mongolian PCP PCP, ELSEWHERE Marital Status Visit Id Visit Reason Weakness or fatigue; headache, poss heat exhaustion Specialty Enc Type Emergency Med Service Emergency Medicine Referred by Track Group [facility] ED Discharge 11/12/2013 10:40 PM Tracking Id [id number] Checkout 11/12/2013 10:40 PM Checkin 11/12/2013 8:32 PM Acuity 4 -Less Urgent Dispo Type * Discharged to Home or Self Care Arrival 11/12/2013 8:32 PM Reg Status Complete LOS 000 02:08 Address: [address] [place] [phone] Comment: PROVIDER INFORMATION Provider Role Provider Contact Time ARMAND CALI ED Provider 11/12/13 20:46 EVANGELINA PENN SHUTTLE ROUTE VEHICLE OPERATOR Nurse 11/12/13 22:39 DIAGNOSIS Fatigue NOS Comment: PATIENT EDUCATION INFORMATION Instructions: WEAKNESS, Unk Cause; WORK_RELEASE_FORM (Custom) Follow up: With: Address: When: Follow up with primary care provider Within As Needed Comments: If new or worsening symptoms Source: [facility] POWERCHART Document Id: [id number] documented in this encounter ED Notes Evangelina Penn R.N. - 11/12/2013 10:39 PM CDT ED Disposition Summary ED Disposition Summary Entered On: 11/12/2013 22:39 CDT Performed On: 11/12/2013 22:39 CDT by EVANGELINA PENN RN ED Disposition Summary Accompanied By : Spouse Printed Discharge Instructions Given to Patient : Yes EVANGELINA PENN RN - 11/12/2013 22:39 CDT Source: [employer] Document Id: [id number] CDT!4 Evangelina Penn R.N. - 11/12/2013 10:39 PM CDT ED Pain Assessment ED Pain Assessment Entered On: 11/12/2013 22:39 CDT Performed On: 11/12/2013 22:39 CDT by EVANGELINA PENN RN Pain Assessment Pain Symptoms : Yes Pain Medication Requested : No EVANGELINA PENN RN - 11/12/2013 22:39 CDT Source: [employer] Document Id: [id number] CDT!4 Evangelina Penn R.N. - 11/12/2013 10:38 PM CDT ED Treatments and Procedures ED Treatments and Procedures Entered On: 11/12/2013 22:38 CDT Performed On: 11/12/2013 22:38 CDT by EVANGELINA PENN RN Peripheral IV Peripheral IV Assess/Intervention Grid Peripheral IV #1 IV Activity : Discontinue Number of Attempts : 2 Date of Insertion : 11/12/2013 CDT IV Site : Antecubital Laterality : Left Catheter Size : 20 Catheter Type : Protective EVANGELINA PENN RN - 11/12/2013 22:38 CDT Source: [employer] Document Id: [id number] CDT!11 Gage Bueno R.N. - 11/12/2013 9:22 PM CDT ED Treatments and Procedures ED Treatments and Procedures Entered On: 11/12/2013 21:23 CDT Performed On: 11/12/2013 21:22 CDT by GAGE BUENO RN Peripheral IV Peripheral IV Assess/Intervention Grid Peripheral IV #1 IV Activity : Start Number of Attempts : 2 Date of Insertion : 11/12/2013 CDT IV Site : Antecubital Laterality : Left Catheter Size : 20 Catheter Type : Protective Site Condition : No complications Drainage Description : Bloody Dressing/ Activity : Drainage present, Intact, Transparent Flow/ Patency : No complications IV Equipment/Supplies : Extension, loop, IV securement device, Pump tubing, Regular GAGE BUENO RN - 11/12/2013 21:22 CDT Source: [employer] Document Id: [id number] CDT!16 Armand Cali P.A.-C. - 11/12/2013 8:46 PM CDT Weakness or fatigue Patient: FABIANO SCHWARTZ Age: 38 years Sex: Male : 1975 Author: ARMAND CALI Attachments: None Associated Diagnosis: Fatigue NOS Basic Information Time seen: Immediately upon arrival. History source: Patient. Arrival mode: Private vehicle. History limitation: None. Additional information: Chief Complaint from Nursing Triage Note : Chief Complaint Description 11/12/2013 20:42 CDT Chief Complaint Description see note 11/12/2013 20:38 CDT Chief Complaint Description 38 year old male admits complaints of generalized weakness headache. Hx of WPW . . History of Present Illness The patient presents with weakness and fatigue. The onset was 5 hours ago. The course/duration of symptoms is improving. The character of symptoms is generalized, tired and achy. The degree at present is minimal. Risk factors consist of obesity. Prior episodes: none. Therapy today: none. Associated s ymptoms: headache, C/o small pain in midepigastric region., denies chest pain, denies nausea, deniesvomiting, denies shortness of breath, denies fever, denies chills and denies dizziness. Additional history: Pt states he was at work in an AC building today when he started feeling sweaty around 1530pm. Sweating has resolved. Feels tired and generalized weakness, blah. Denies n/v. Ate a cheeseburgerfor supper. Last BM was yesterday. U/o was clear. Denies cough or URI sxs. No ST or ear pain. DeniesCP or SOB. No f/c. Has been out in the hot humid weather the last few days and wonders if this may be a factor. Has a few bug bites on his legs that have been red for several weeks. Does not know what b it him. No streaking, swelling, or drainage from the sites.. Review of Systems Constitutional symptoms: Sweats and fatigue. Skin symptoms: No rash. Eye symptoms: Negative except as documented in HPI. ENMT symptoms: No ear pain, no sore throat, no nasal congestion or no sinus pain. Respiratory symptoms: No shortness of breath or no cough. Cardiovascular symptoms: No chest pain, no palpitations or no tachycardia. Gastrointestinal symptoms: Mild and epigastric, but no nausea, no vomiting or no diarrhea. Genitourinary symptoms: No dysuria or no hematuria. Musculoskeletal symptoms: [place] achy all over but this is improving as well.. Neurologic symptoms: Headache (Frontal. Took Ibuprofen and this has resolved.). Psychiatric symptoms: Negative except as documented in HPI. Endocrine symptoms: Negative except as documented in HPI. Hematologic/Lymphatic symptoms: Negative except as documented in HPI. Allergy/immunologic symptoms: Negative except as documented in HPI. Health Status Allergies: Allergic Reactions (Selected) Severity Not Documented Ultram- Lightheaded and \.. Medications: (Selected) Inpatient Medications Ordered Protonix IV: 40 mg, 1 each, IV Push, Once Sodium Chloride 0.9% 1,000 mL: 1,000 mL/hr, IV Prescriptions Prescribed ibuprofen 800 mg oral tablet: 800 mg, 1 tab(s), PO, 3xDay, Take with food, 60 tab(s) Documented Medications Documented CeleXA 40 mg oral tablet: 40 mg, 1 tab(s), PO, Daily. Past Medical/ Family/ Social History Surgical history: No active procedure history items have been selected or recorded.. Family history: No family history items have been selected or recorded.. Social history: Alcohol use: Occasionally, Tobacco use: Quit 20 years ago, Occupation: Employed, Family/social situation: . 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 Avoids those. Denies recent problems.. Physical Examination Vital Signs: Vital Signs 11/12/2013 20:43 CDT Temperature Core 37.4 DegC Peripheral Pulse Rate 73 /min SpO2 100 % Systolic Blood Pressure 135 mmHg Diastolic Blood Pressure 94 mmHg >HHI , Measurements 11/12/2013 20:43 CDT Height 174 cm Dosing Weight 107.00 kg NA Estimated Weight 107 kg , SpO2 11/12/2013 20:43 CDT SpO2 100 % . General: Alert, no acute distress and Talkative, smiling.. Skin: Warm, dry, pink and Few, small (<1cm), faint red areas on lower legs c/w insect bites. No swelling. No streaking or tenderness.. Head: Normocephalic and atraumatic. Eye: Extraocular movements are intact. Ears, nose, mouth and throat: Oral mucosa moist and no pharyngeal erythema or exudate. Cardiovascular: Regular rate and rhythm, Normal peripheral perfusion and No edema. Respiratory: Lungs are clear to auscultation, respirations are non-labored, breath sounds are equal and Symmetrical chest wall expansion. Gastrointestinal: Soft, Nontender and Non distended. Musculoskeletal: Normal ROM. normal strength. no swelling. Neurological: Alert and oriented to person, place, time, and situation, normal sensory observed, normal motor observed, normal speech observed and normal coordination observed. Lymphatics: No lymphadenopathy. Psychiatric: Cooperative and appropriate mood & affect. Medical Decision Making Differential Diagnosis:Weakness, anemia, dehydration, electrolyte imbalance, hypothyroidism. Documents reviewed:Emergency department nurses' notes. OrdersLaunch Orders Laboratory: Lyme Disease Serology-[place] 9129 (Order Processing): Stat, 11/12/2013 20:56 CDT, Once Comprehensive Metabolic Panel (Order Processing): Stat, 11/12/2013 20:56 CDT, Once CBC (includes Auto Differential) (Order Processing): Stat, 11/12/2013 20:56 CDT, Once Pharmacy: Protonix IV (Order Processing): 40 mg, IV, Once Sodium Chloride 0.9% 1000 mL (Order Processing): 1,000 mL/hr, IV, Launch Orders Laboratory: TSH (Order Processing): Stat, 11/12/2013 21:01 CDT, Once, Launch Orders Diagnostic Tests: EKG - Nurse/Rad (Order Processing): 11/12/2013 21:28 CDT, Once, Stat, Current Location. Electrocardiogram:Time 11/12/2013 21:40:00, rate 71, normal sinus rhythm. Results review:Lab results : Lab View 11/12/2013 21:15 CDT Hgb 15.3 g/dL Hct 44.2 % WBC 9.7 x10(9)/L RBC 4.97 x10(12)/L MCV 88.9 fL RDW 12.4 % Platelet 299 x10(9)/L Neutro Absolute 5.79 10(9)/L Lymph Absolute 2.88 x10(9)/L [place] Absolute 0.79 x10(9)/L Eos Absolute 0.21 x10(9)/L Baso Absolute 0.03 x10(9)/L Differential? Auto Sodium Lvl 139.3 mmol/L Potassium Lvl 4.2 mmol/L Chloride 102 mmol/L CO2 27.7 mmol/L AGAP 14 mmol/L Alkaline Phosphatase 68 U/L Glucose Lvl 92 mg/dL Creatinine 0.95 mg/dL EGFR (MDRD) >60 mL/min/1.73m2 EGFR (MDRD) >60 mL/min/1.73m2 BUN 13 mg/dL Calcium Lvl 9.2 mg/dL Protein Total 6.9 g/dL Albumin Lvl 4.0 g/dL AST 15 U/L ALT 7 U/L LOW Bili Total 0.5 mg/dL TSH 1.43 mcIU/mL . Notes:Lyme titer send out. Reexamination/ Reevaluation Vital signs SpO2 11/12/2013 20:43 CDT SpO2 100 % Sitting up, talking with . Impression and Plan Diagnosis Fatigue NOS (Discharge, Emergency medicine, Medical) Plan Condition: Improved, Stable. Disposition: Medically cleared, Discharged: to home. Patient was given the following educational materials: WEAKNESS, Unk Cause, WEAKNESS, Unk Cause. Follow up with: ; Follow up with primary care provider Within As Needed If new or worsening symptoms. Counseled: Patient, Family, Regarding diagnosis, Regarding diagnostic results, Regarding treatment plan, Patient indicated understanding of instructions. Notes: Home to rest. Push fluids. F/u for reeval is new or worsening sxs or without resolve.. Electronically Signed By: ARMAND CALI On: 11/12/2013 10:30 PM Modified by and Electronically Signed by: ARMAND CALI On: 11/12/2013 09:14 PM Co-Signed By: JC WILSON MD On: 11/13/2013 08:58 AM Source: [facility] POWERCHART Document Id: [id number]} Evangelina Penn, R.N. - 11/12/2013 8:42 PM CDT ED Primary Assessment Document Has Been Updated ED Primary Assessment Entered On: 11/12/2013 20:43 CDT Performed On: 11/12/2013 20:42 CDT by EVANGELINA PENN RN Reason For Visit (As Of: 11/12/2013 20:43:17 CDT) Problems(Active) Anomalous Atrioventricular Excitation (ICD-9-CM :426.7 ) Name of Problem: Anomalous AtrioventricularExcitation ; Onset Date: 05/14/2013 ; Confirmation: Confirmed ; Classification: Medical ; Code: 426.7 ; Contributor System: [facility]_HX_PR_UPLOAD ; Last Updated: 06/20/2013 21:45 CDT ; Life Cycle Status: Ac tive ; Vocabulary: ICD-9-CM ; Comments: - Trcrw-Cuujxuqua-Ciohb (WPW) syndrome 1990s episode of heart stopping. had cardiac exploratory surgery to ablate pathway, but none found. No restrictions from cardiology or needed monitoring. Diagnoses(Active) Weakness or fatigue Date: 11/12/2013 ; Diagnosis Type: Reason For Visit ; Confirmation: Complaint of; Clinical Dx: Weakness or fatigue ; Classification: Medical ; Clinical Service: Emergency medicine ; Code: PNED ; Probability: 0 ; Diagnosis Code: [id number] Triage Chief Complaint Description : see note Mode of Arrival ED : Private vehicle Track : Medical Languages : Mongolian Is Patient Female and 13-50 no hysterectomy : No Treatments Prior to Arrival : None EVANGELINA PENN RN - 11/12/2013 20:42 CDT Pain Assessment Pain Symptoms : Yes Pain Medication Requested : No EVANGELINA PENN RN - 11/12/2013 20:42 CDT Respiratory Airway : Patent Respirations : Unlabored Respiratory Pattern : Regular EVANGELINA PENN RN - 11/12/2013 20:42 CDT Cardiovascular Heart Rhythm : Regular Skin Color : Normal for ethnicity Skin Description : Dry Skin Temperature : Warm EVANGELINA PENN RN - 11/12/2013 20:42 CDT Neurological Last Well Time Known : Yes Last Known Well Time : 11/12/2013 16:00 CDT Level of Consciousness : Alert Orientation : Oriented x 3 Characteristics of Speech : Appropriate for age EVANGELINA PENN RN - 11/12/2013 20:42 CDT ED Psychosocial Affect/Behavior : Calm Domestic Abuse Concerns : None EVANGELINA PENN RN - 11/12/2013 20:42 CDT Gastrointestinal Nutrition ED : Adequate EVANGELINA PENN RN - 11/12/2013 20:42 CDT Musculoskeletal Fall Prevention Education Provided : EVANGELINA CALDERON RN - 11/12/2013 20:42 CDT Social Habits Tobacco Use/Currently Using : No Smoking Status : Former smoker EVANGELINA PENN RN - 11/12/2013 20:42 CDT Tobacco Use Grid Type : Cigarettes Last Use : 1997 EVANGELINA PENN RN - 11/12/2013 20:42 CDT Alcohol Use Grid Alcohol Use : Yes Frequency : Occasionally EVANGELINA PENN RN - 11/12/2013 20:42 CDT Recreational Drug Use Grid Drug Use : Past Last Use : 18 years ago EVANGELINA PENN RN - 11/12/2013 20:42 CDT Source: [facility] POWERCHART Document Id: [id number] CDT!48 Evangelina Penn R.N. - 11/12/2013 8:38 PM CDT ED Triage Assessment Document Has Been Updated ED Triage Assessment Entered On: 11/12/2013 20:42 CDT Performed On: 11/12/2013 20:38 CDT by EVANGELINA PENN RN Reason For Visit (As Of: 11/12/2013 20:42:13 CDT) Problems(Active) Anomalous Atrioventricular Excitation (ICD-9-CM :426.7 ) Name of Problem: Anomalous AtrioventricularExcitation ; Onset Date: 05/14/2013 ; Confirmation: Confirmed ; Classification: Medical ; Code: 426.7 ; Contributor System: [facility]__PR_UPLOAD ; Last Updated: 06/20/2013 21:45 CDT ; Life Cycle Status: Ac tive ; Vocabulary: ICD-9-CM ; Comments: - Xjnbb-Oudlxymny-Tsesv (WPW) syndrome 1990s episode of heart stopping. had cardiac exploratory surgery to ablate pathway, but none found. No restrictions from cardiology or needed monitoring. Diagnoses(Active) Weakness or fatigue Date: 11/12/2013 ; Diagnosis Type: Reason For Visit ; Confirmation: Complaint of; Clinical Dx: Weakness or fatigue ; Classification: Medical ; Clinical Service: Emergency medicine ; Code: PNED ; Probability: 0 ; Diagnosis Code: [id number] Triage Chief Complaint Description : 38 year old male admits complaints of generalized weakness headache. Hx of WPW . Information Given By : Patient Mode of Arrival ED : Private vehicle Track : Medical Languages : Mongolian Is Patient Female and 13-50 no hysterectomy : No Treatments Prior to Arrival : None EVANGELINA PENN RN - 11/12/2013 20:38 CDT Pain Assessment Pain Symptoms : Yes EVANGELINA PENN RN - 11/12/2013 20:38 CDT Pain Pain Assessment Grid Pain 1 Location : Abdomen Laterality : Bilateral (Comment: substernal pain [EVANGELINA PENN RN - 11/12/2013 20:38 CDT] ) Intensity : 3 EVANGELINA PENN RN - 11/12/2013 20:38 CDT ED Physician Notification Time ED Physician Notification Time : 11/12/2013 20:41 CDT EVANGELINA PENN RN - 11/12/2013 20:38 CDT LILIAN LILIAN Level 1 : No LILIAN Level 2 : No LILIAN Level 3 : Many EVANGELINA PENN RN - 11/12/2013 20:38 CDT DCP GENERIC CODE Tracking Acuity : 4 -Less Urgent Tracking Group : [facility] ED EVANGELINA PENN RN - 11/12/2013 20:38 CDT Allergy (As Of: 11/12/2013 20:42:13 CDT) Allergies (Active) Ultram Estimated Onset Date: Unspecified ; Reactions: lightheaded, \ ; Created By: LAURO SALEEM RN; Reaction Status: Active ; Category: Drug ; Substance: Ultram ; Type: Allergy ; Updated By: LAURO SALEEM RN; Reviewed Date: 12/01/2012 8:46 CDT Source: [facility] [employer] Document Id: [id number] CDT!26 documented in this encounter Miscellaneous Notes aCrlitacellaneous - Lu Ly M.D. - 11/21/2013 7:01 AM CDT Results of Lyme/West Nile Called patient after ED visit on 11/12 for near syncope. He has been feeling fine. His West Nile IgGwas positive. HE IS ASYMPTOMATIC. 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 No further action needed. Source: [facility] [employer] Document Id: [id number] Miscellaneous - Evangelina Penn R.N. - 11/12/2013 10:39 PM CDT Valuables/Belongings Valuables/Belongings Entered On: 11/12/2013 22:40 CDT Performed On: 11/12/2013 22:39 CDT by EVANGELINA PENN RN Valuables/Belongings Belongings Sent Home With : All sent with patient EVANGELINA PENN RN - 11/12/2013 22:39 CDT Source: [facility] [employer] Document Id: [id number] CDT!3 Miscellaneous - Evangelina Penn R.N. - 11/12/2013 8:32 PM CDT Facility Charge Ticket 2.0 11.0 DX Facility Charge Ticket 2.0 11.0 DX Entered On: 11/12/2013 22:40 CDT Performed On: 11/12/2013 20:32 CDT by EVANGELINA PENN RN Facility Charge Ticket 2.0 11.0 DX ED Other Charges : Standard ED Encounter TVL Level Translated RTF : Weakness or fatigue TVL:5 TVL Level for Facility Charge Ticket : Level 5 Arrival Mode Calc : 1 Mode of Arrival ED : Private vehicle [facility] Mode of Arrival Interpreted : Standard [facility] Process Management : None Order Management RTF : Laboratory CBC (includes Auto Differential),11/12/13 20:56,ARMAND CALI Completed Comprehensive Metabolic Panel,11/12/13 20:56,ARMAND CALI Completed TSH,11/12/13 21:01,ARMAND CALI Completed Automated Diff-5 Part,11/12/13 21:22,ARMAND CALI Completed Lyme Disease Serology-[place] 9129,11/12/13 20:56,ARMAND CALI Ordered [place]x Order Management : Lab tests 30 Minutes Critical Care : No Nursing Notes RTF : Triage Forms ED Triage Assessment,11/12/13 20:38,EVANGELINA PENN RN Nursing Notes ED Primary Assessment,11/12/13 20:42,EVANGELINA PENN SHUTTLE ROUTE VEHICLE OPERATOR Pain Assessment,11/12/13 22:39,EVANGELINA PENN RN [place] Nursing Assessment : Triage and 3-5 nursing assessments Lynx Disposition : Discharge Disposition RTF : discharge Lynx Total Points with Diagnosis Control : 13 Lynx Visit Level : 51174 Level 5 Treatments Prior to Arrival : None EVANGELINA PENN RN - 11/12/2013 22:40 CDT [facility] Document Id: [id number]!19 documented in this encounter Plan of Treatment Not on filedocumented as of this encounter Procedures Procedure Name Priority Date/Time Associated Comments Diagnosis LYME DISEASE SEROLOGY, Routine 11/12/2013 9:15 PM Results for this S CDT procedure are i n the results section. AUTOMATED Routine 11/12/2013 9:15 PM Results f or this DIFFERENTIAL, B CDT procedure ar e in the results section. [place]ST NILE VIRUS AB, Routine 11/12/2013 9:15 PM Re sults for this IGG AND IGM,CSF CDT procedure ar e in the results section. CBC WITH DIFFERENTIAL, Routine 11/12/2013 9:15 PM Results for this B CDT procedure are i n the results section. THYROID-STIMULATING Routine 11/12/2013 9:15 PM Re sults for this HORMONE-SENSITIVE CDT procedure are in (S-TSH) the results section. COMPREHENSIVE Routine 11/12/2013 9:15 PM Results for this METABOLIC PANEL, S/P CDT procedu re are in the results section. documented in this encounter Results Automated Differential (11/12/2013 9:15 PM CDT) athologist Signature Absolute 5.79 1.70 - POWERCHART Neutrophils 7.00 109L Lymphocytes 2.88 0.90 - POWERCHART 2.90 X109L Monocytes 0.79 0.30 - POWERCHART 0.90 X109L Eosinophils 0.21 0.05 - POWERCHART 0.50 X109L Absolute 0.03 0.00 - POWERCHART Basophil 0.30 X109L Specimen Anatomical Collection Method Collection Time Receive d Time (Source) Location / / Volume Laterality Blood 11/12/2013 9:15 PM 4 9:15 CDT PM CDT Armand Cali P.A.-C. LAB BLOOD ADD-ON Performing Organization Address City/State/ZIP Code Phon e Number POWERCHART CBC with Differential (11/12/2013 9:15 PM CDT) athologist Signature Leukocytes 9.7 3.5 - 10.5 POWERCHART X109L Erythrocytes 4.97 4.32 - POWERCHART 5.72 [id number] Hemoglobin 15.3 13.5 - POWERCHART 17.5 GDL Hematocrit 44.2 38.8 - POWERCHART 50.0 MCV 88.9 81.0 - POWERCHART 95.0 FL HX RDW 12.4 11.8 - POWERCHART 15.6 Platelet Count 299 150 - 450 POWERCHART X109L HXDifferential? Auto POWERCHART Specimen (Source) Anatomical Collection Method Collection Time Re ceived Time Location / / Volume Laterality Blood 11/12/2013 9:15 PM CDT Armand Jared Chung GreyC. LAB BLOOD ADD-ON Performing Organization Address City/State/ZIP Code Phon e Number POWERCHART West Nile Virus (WNV) Antibody, IgG and IgM, Spinal Fluid (11/12/2013 9:15 PM CDT) athologist Signature HXW Nile Positive Negative POWERCHART IgG-[place] HXW Nile Negative Negative POWERCHART IgM-[place] Comment: Test Performed by: [facility] [address] [place] [address] Urban Planning Professor: Tolu peguero III, M.D. Specimen (Source) Anatomical Collection Method Collection Time Re ceived Time Location / / Volume Laterality Blood 11/12/2013 9:15 PM CDT Armand Jared Chung Gray-C. LAB MICROBIOLOGY - GENERAL O RDERABLES Performing Organization Address City/State/ZIP Code Phon e Number POWERCHART Thyroid-Stimulating Hormone-Sensitive (s-TSH) (11/12/2013 9:15 PM CDT) athologist Signature TSH 1.43 0.30 - 5.00 POWERCHART (Thyrotropin) MCIUML Specimen (Source) Anatomical Collection Method Collection Time Re ceived Time Location / / Volume Laterality Blood 11/12/2013 9:15 PM CDT Armand Jared Chung Gray-C. LAB BLOOD ADD-ON Performing Organization Address City/State/ZIP Code Phon e Number POWERCHART Lyme Disease Serology, Serum (11/12/2013 9:15 PM CDT) athologist Signature Lyme Disease Negative Negative POWERCHART Serology, S Comment: Serologic response to B. burgdorferi inf ection is not detected, but cannot rule out early infe ction during which low or undetectable antibody level s to B. burgdorferi may be present. If clinic ally indicated, a new serum specimen should be submitted in 7-14 days. Test Performed by: [facility] [address] [address] Urban Planning Professor: Tolu peguero III, M.D. Specimen (Source) Anatomical Collection Method Collection Time Re ceived Time Location / / Volume Laterality Blood 11/12/2013 9:15 PM CDT Armand M Chung Barrios LAB MICROBIOLOGY - BLOOD ORD ERABLES Performing Organization Address City/State/ZIP Code Phon e Number POWERCHART (ABNORMAL) CMP (Comprehensive Metabolic Panel) (11/12/2013 9:15 PM CDT) [facility] gist Method Time Signature Anion Gap 14 10 - 20 POWERCHART MMOLL Alkaline 68 45 - 115 POWERCHART Phosphatase, S UL Alanine 7 (L) 15 - 37 POWERCHART Amniotransferase, LD UL Aspartate 15 12 - 31 POWERCHART Aminotransferase UL (AST), S Bilirubin, Total, S 0.5 0.1 - 1.0 POWERCHART MGDL BUN (Blood Urea 13 7 - 18 POWERCHART Nitrogen), S MGDL Chloride, S 102 98 - 107 POWERCHART MMOLL CO2 Total 27.7 23.0 - POWERCHART 29.0 MMOLL Creatinine 0.95 0.60 - POWERCHART 1.30 MGDL Total Protein, S 6.9 6.3 - 7.9 POWERCHART GDL Glucose 92 70 - 139 POWERCHART MGDL Calcium, Total, S 9.2 8.6 - POWERCHART 10.0 MGDL Sodium, S 139.3 135.0 - POWERCHART 145.0 MMOLL Potassium, S 4.2 3.6 - 4.8 POWERCHART MMOLL Albumin, S 4.0 3.5 - 5.0 POWERCHART GDL HXeGFR (MDRD) >60 >=60 POWERCHART [id number] 2 eGFR Black/ >60 >=60 POWERCHART Liberian [id number] Specimen (Source) Anatomical Collection Method Collection Time Re ceived Time Location / / Volume Laterality Blood 11/12/2013 9:15 PM CDT Armand Cali P.A.-C. LAB BLOOD ADD-ON Performing Organization Address City/State/ZIP Code Phon e Number POWERCHART documented in this encounter Visit Diagnoses Not on filedocumented in this encounter
--- OUTSIDE RECORDS SUMMARY | 2022-02-06 14:17 | XMS_ITS | Encounter Summary ---
:1975 Author Organization [facility] Address [address] [place] [address] Care Team Providers Name Role Phone Unavailable Primary Care Provider Unavailable Reason for Visit Reason Onset Date Comments Testing For Upper Respiratory Virus Symptoms 03/17/2020 Encounter Details Date Type Department Care Team Description 03/17/2020 External Outreach Department of [facility] Post, Bradley Gurrola, Infection Upper Medicine, Center [address] M.D. Respiratory (Primary Street Professional [address] [facility]) [facility] in [facility] [phone] [address] [facility] [phone] [place], [place] (Work) [phone] Social History Tobacco Use Types Packs/Day Years Used Date Smoking Tobacco: Former Sex Assigned at Date Recorded Not on file documented as of this encounter Progress Notes Dhiraj West II RJ CarlosN. - 03/17/2020 9:53 AM CST Encounter created for symptomatic infectious disease screening with possible COVID, Influenza, and RSV testing. [employer] BOILERMAKING [employer] documented in this encounter Plan of Treatment Not on filedocumented as of this encounter Procedures Procedure Name Priority Date/Time Associated Diagnosis Comme nts INFLUENZA A/B AND Routine 03/17/2020 10:02 AM Infection Upper Results for this RSV, PCR, VARIES SUPERVISOR BOILERMAKING SHOP Respiratory procedure a re in the results section. SARS CORONAVIRUS-2 Routine 03/17/2020 10:02 AM Infection Upper Results for this RNA, V [employer]PERVIS[employer] BOILERMA[employer] Respiratory procedure are i n the results section. documented in this encounter Results Influenza A/B and RSV, PCR, Varies (03/17/2020 10:02 AM SUPERVISOR BOILERMAKING SHOP) [facility] Method Time Signature Influenza A/B Swab, 03/17/2020 DTL and RSV, Nasopharynx 5:06 PM SUPERVISOR BOILERMAKING SHOP Source Influenza A, Undetected Undetected 03/17/2020 DTL PCR 5:06 PM SUPERVISOR BOILERMAKING SHOP Comment: Influenza A RNA absent. Influenza B, PCR Undetected Undetected 03/17/2020 5:06 PM CS T DTL Comment: Influenza B RNA absent. Respiratory Syncytial Virus, PCR Undetected Undetected 5:06 PM SUPERVISOR BOILERMAKING SHOP DTL Comment: RSV RNA absent. ----ADDITIONAL INFORMATION---- This test has been modified from the man ufacturer's instructions. Its performance characteristics were determi dre by [facility] in a manner consistent with CLIA requirements. This test has not been cleared or approved by the U.S. Food and Drug Administration . Specimen Anatomical Collection Method Collection Time Receive d Time (Source) Location / / Volume Laterality Varies 03/17/2020 10:02 03/17/2020 (Nasopharynx) AM SUPERVISOR BOILERMAKING SHOP 11:31 AM SUPERVISOR BOILERMAKING SHOP Bradley Mann M.D. LAB MICROBIOLOGY - GENERAL O RDERABLES Performing Organization Address City/State/ZIP Code Phon e Number [facility] - [address] [place], [place] [address] [facility] [place] [address] [facility] [address] [facility] SARS Coronavirus-2 RNA, V Symptomatic (03/17/2020 10:02 AM SUPERVISOR BOILERMAKING SHOP) [facility] Method Time Signature SARS-CoV-2 Swab, 03/17/2020 DTL Specimen Nasopharynx 4:53 PM SUPERVISOR BOILERMAKING SHOP Source SARS CoV-2 Undetected Undetected 03/17/2020 DTL RNA, TMA 4:53 PM SUPERVISOR BOILERMAKING SHOP Comment: SARS-CoV-2 RNA absent. This result does not rule out COVID-19 in the patient, as the sensitivity of the test depends o n the timing of the specimen collection and the quality of the specim en. Result should be correlated with patient's history and clinical presentat ion. ----ADDITIONAL INFORMATION---- This molecular amplification test was pe rformed using the Aptima SARS-CoV-2 assay ([employer] on the [employer] tem under emergency use authorization (EUA) by the U.S. Food and Drug Administ rogers. Fact sheets for this EUA assay can be fo und at the following links: For Healthcare Providers: https://www.[employer] a.gov/media/294204/download For Patients: https://www.fda.gov/media/ 455431/download Specimen Anatomical Collection Method Collection Time Receive d Time (Source) Location / / Volume Laterality Varies 03/17/2020 10:02 03/17/2020 (Nasopharynx) AM [employer]PERVISOR BOILERMAKING SHOP 11:31 AM SUPERVISOR BOILERMAKING [employer]OP Bradley Mann M.D. LAB MICROBIOLOGY - GENERAL O AMAURI Performing Organization Address City/State/[facility] Code Phon e Number [facility] - [address] [place], [place] [address] [facility] [place] [address] [facility] [address] documented in this encounter Visit Diagnoses Diagnosis Infection Upper Respiratory - Primary documented in this encounter Additional Health Concerns Infection Onset Date Last Indicated Resolved Time COVID19 Pending 03/15/2020 03/15/2020 03/17/2020 4:54 PM SUPERVISOR BOILERMAKING SHOP documented as of this encounter
== END 2022-02-06 14:07 | disposition home or self-care (01) ==
PROVIDERS: Visit Provider Family Medicine
DX: M54.16 Radiculopathy, lumbar region (principal); M51.36 Other intervertebral disc degeneration, lumbar region
CPT/HCPCS: 62323; J0702; Q9966

== ENCOUNTER 2023-07-19 08:06 | Outpatient (CLI) | payer OTHER, SELFPAY ==
--- OUTSIDE RECORDS SUMMARY | 2023-07-19 08:11 | XMS_ITS | Clinical Summary ---
Author Name Unknown Organization [facility] er Address [address] [place] [address] Care Team Providers Care Plant Operator Helper Name Role Phone Evens Medrano MD Primary Care Provider [phone] Allergies Active Allergy Reactions Criticality Noted Date Comments Epinephrine Anxiety,Palpitations 12/31/2018 Methylprednisolone Dizziness Tramadol Dizziness 06/19/2006 Medications Medication Sig Dispensed Refills Start Date End Date Status tiZANidine (ZANAFLEX) 4 MG tablet Take 1 tablet (4 mg total) by mouth every 8 hours as needed 0 10/05/2021 Active gabapentin (NEURONTIN) 300 MG capsuleIndications:N europathy Take THREE capsules daily for pain or as directed 270 capsule 3 04/21/2022 Active Additional Information Patient not taking.Reported on 02/01/2023 lisinopril (ZESTRIL) 30 MG tabletIndications:Es sential hypertension TAKE 1 TABLET BY MOUTH DAILY FOR BLOOD PRESSURE 90 tablet 3 04/21/2022 Active DULoxetine (CYMBALTA) [address] capsuleIndications:D epression, unspecified depression type TAKE 1 CAPSULE BY MOUTH EVERY DAY FOR ANXIETY OR DEPRESSION OR PAIN 90 capsule 2 04/24/2023 Active atorvastatin (LIPITOR) 20 MG tabletIndications:Mi xed hyperlipidemia TAKE 1 TABLET BY MOUTH EVERY DAY FOR CHOLESTEROL 90 tablet 2 04/24/2023 Active Active Problems Problem Noted Date Diagnosed Date Benign prostatic hyperplasia with post-void drib gordon 02/01/2023 Bilateral carpal tunnel syndrome 03/22/2021 MILLY (obstructive sleep apnea) 03/14/2020 Mixed hyperlipidemia 03/14/2020 Preoperative cardiovascular examination 05/29/19 20 Overview: 1. 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 Will recommend ECG monitoring during the procedure and immediately post procedure. 2. Anesthesia can call me if problems or questions arise concerning the surgery. 3. Patient to be seen back on an as-needed basis and to be seen if he wishes with me in the [facility]. 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 03/21/2019 Encounters Date Type Department Care Team Description 07/19/2023 Refill [place] [address] [address] Bethany Rahman MD Essential hypertension 04/20/2023 Refill [place] [address] [address] Evens Medrano MD Depression, unspecified depression type; Mixed hyperlipidemia from Last 3 Months Immunizations Name Administration Dates Next Due H1N1 All Forms 04/16/2009 Tdap 08/28/2021,07/16/2011 Family History Medical History Relation Comments Heart attack Father Heart attack Paternal Grandfather Liver disease Paternal Grandmother Relation Status Comments Daughter Alive Father Maternal Grandfather Maternal Grandmother Alive Mother Alive Paternal Grandfather Paternal Grandmother Sister 1 Alive Sister 2 Alive Son Alive Social History Tobacco Use Types Packs/Day Years Used Date Smoking Tobacco: Former Smokeless Tobacco: Never Tobacco Cessation:Counseling Given: Not Answered Alcohol Use Standard Drinks/Week Comments Yes 0 (1 standard drink = 0.6 oz pur e alcohol) 1-2 times per month Humiliation, Afraid, Rape, and Kick questionnair e Answer Date Recorded Within the last year, have y ou been afraid of your partner or ex-partner? No 02/01/2023 Within the last year, have y ou been humiliated or emotionally abused in other ways by your partner or ex-partner? No Within the last year, have y ou been kicked, hit, slapped, or otherwise physically hurt by your partner or ex-partner? No 02/01/2023 Within the last year, have y ou been raped or forced to have any kind of sexual activity by your partner or ex-partner? No 02/01/2023 Social Connection and Isolat ion Panel [NHANES] Answer Date Recorded In a typical week, how many times do you talk on the phone with family, friends, or neighbors? Twice a week 02/01/2023 How often do you get togethe r with friends or relatives? Once a week 02/01/2023 How often do you attend chur ch or congregation services? More than 4 times per year 02/01/2023 Do you belong to any clubs o r organizations such as anabaptist groups, unions, fraternal or athletic groups, or school groups? Yes 02/01/2023 How often do you attend meet ings of the clubs or organizations you belong to? More than 4 times per year 02/01/2023 Are you , , di vorced, , never , or living with a partner? 02/01/2023 AUDIT-C Answer Date Recorded Q1: How often do you have a drink containing alc ohol? 2-4 times a month 02/01/2023 Q2: How many drinks containi ng alcohol do you have on a typical day when you are drinking? 3 or 4 02/01/2023 Q3: How often do you have si x or more drinks on one occasion? Less than monthly 02/01/2023 Overall Financial Resource Strain (CARDIA) Answe r Date Recorded How hard is it for you to pa y for the very basics like food, housing, medical care, and heating? Somewhat hard 02/01/2023 PHQ-2 Answer Date Recorded PHQ-9 Total Score 9 02/01/2023 [facility] - Occupational Stress Questionnaire Answer Date Recorded Do you feel stress - tense, restless, nervous, or anxious, or unable to sleep at night because your mind is troubled all the time - these days? Not at all 02/01/2023 Exercise Vital Sign Answer Date Recorde d On average, how many days pe r week do you engage in moderate to strenuous exercise (like a brisk walk)? 0 days 02/01/2023 On average, how many minutes do you engage in exercise at this level? 0 min 02/01/2023 Hunger Vital Sign Answer Date Recorded Within the past 12 months, y ou worried that your food would run out before you got the money to buy more. Sometimes true Within the past 12 months, t he food you bought just didn't last and you didn't have money to get more. Sometimes true 12/2022 PRAPARE - Transportation Answer Date Re corded In the past 12 months, has l ack of transportation kept you from medical appointments or from getting medications? No 01/23 In the past 12 months, has l ack of transportation kept you from meetings, work, or from getting things needed for daily living? No 02/01/2023 Housing Stability Vital Sign Answer Hermes e Recorded In the last 12 months, was t here a time when you were not able to pay the mortgage or rent on time? Yes 02/01/2023 In the last 12 months, how many places have you lived? 1 02/01/2023 In the last 12 months, was t here a time when you did not have a steady place to sleep or slept in a halfway (including now)? No 02/01/2023 Sex and Gender Information Value Date Recorded Sex Assigned at Male 05/12/2018 3:05 PM OFFICE CLINICIAN Gender Identity Male 05/12/2018 3:05 PM OFFICE CLINICIAN Sexual Orientation Straight 05/12/2018 3: 05 PM OFFICE CLINICIAN Last Filed Vital Signs Vital Sign Reading Time Taken Comments Blood Pressure 124/80 02/01/2023 3:58 PM OFFICE CLINICIAN Pulse 80 02/01/2023 3:58 PM OFFICE CLINICIAN Temperature 36.9 ??C (98.4 ??F) 02/01/2023 3:58 PM CS T Respiratory Rate 16 02/01/2023 3:58 PM OFFICE CLINICIAN Oxygen Saturation 95% 02/01/2023 3:58 PM OFFICE CLINICIAN Inhaled Oxygen Concentration - - Weight 106 kg (234 lb 1.6 oz) 02/01/2023 3:58 PM OFFICE CLINICIAN Height 177.8 cm (5' 10) 04/20/2022 9:54 AM OFFICE CLINICIAN Body Mass Index 33.59 04/20/2022 9:54 AM OFFICE CLINICIAN Plan of Treatment Health Maintenance Due Date Last Done Comments CT Colonography 1977 Colonoscopy 1975 Colorectal Cancer Screening 1975 FIT-DNA 1975 Sigmoidoscopy 1975 iFOBT 1975 COVID-19 Vaccine (1 - 2022-2 4 season) 2022 Influenza Vaccine (Season Ended) 2023 DTaP,Tdap,and Td Vaccines (3 - Td or Tdap) 08/29/2031 08/28/2021, 07/16/2011 HPV Vaccines Aged Out No longer eligi ble based on patient's age to complete this topic Pneumococcal Vaccine: Pediatrics (0 to 5 Years) and At-Risk Patients (6 to 64 Years) Aged Out No longer eligible b ased on patient's age to complete this topic Care Teams Plant Operator Helper Relationship Specialty Start Date End Date Evens Medrano MD [address] [place] [address] PCP - General 01/10/23
--- OUTSIDE RECORDS SUMMARY | 2023-07-19 08:11 | XMS_ITS | Encounter Summary ---
Author Name Unknown Organization [facility] er Address [address] [place] [address] Care Team Providers Care Gang Leader Name Role Phone Evens Medrano MD Primary Care Provider Reason for Visit * Reason Comments Med Refill Encounter Details Date Type Department Care Team (Late st Contact Info) Description 07/19/2023 Refill [place] [address] [address] Bethany Rahman MD [address] [facility] [address] [place] [address] Essential hypertension Social History Tobacco Use Types Packs/Day Years Used Date Smoking Tobacco: Former Smokeless Tobacco: Never Alcohol Use Standard Drinks/Week Comments Yes 0 [...] often do you attend chur ch or evangelical services? More than 4 times per year 02/01/2023 Do you belong to any clubs o r organizations such as denominational groups, unions, fraternal or athletic groups, or [...] Date Recorded PHQ-9 Total Score 9 02/01/2023 [facility] Questionnaire Answer Date Recorded [...] place to sleep or slept in a long term (including now)? No 02/01/2023 Sex and Gender Information Value Date Recorded Sex Assigned at Male 05/12/2018 3:05 PM COMMUTATOR ASSEMBLER Gender Identity Male 05/12/2018 3:05 PM COMMUTATOR ASSEMBLER Sexual Orientation Straight 05/12/2018 3: 05 PM COMMUTATOR ASSEMBLER documented as of this encounter Plan of Treatment Not on file documented as of this encounter Visit Diagnoses Diagnosis Essential hypertension Unspecified essential hypertension documented in this encounter Care Teams Gang Leader Relationship Specialty Start Date End Date Evens Medarno MD [address] [place] [address] PCP - General 01/10/23 documented as of this encounter
--- OUTSIDE RECORDS SUMMARY | 2023-07-19 08:11 | XMS_ITS | Clinical Summary ---
Author Name Unknown Organization [facility] Address [address] [place] [address] Care Team Providers Care Apartment Leasing Manager Name Role Phone Unavailable Primary Care Provider Unavailabl e Source Comments You are receiving this document as you are listed as the primary care provider,follow-up provider, or the patient has been referred to you for consultation.This is in compliance with the Medicare and[facility] EHR Incentive Program,which states Providers who transition their patient to another setting of careor provider of care or refers their patient to another provider of care shouldprovide summary care record for each transition of care or referral. [facility] Allergies No known active allergies Medications Medication Sig Dispensed Refills Start Date End Date Status DULoxetine (CYMBALTA) 20 MG capsule Take 20 mg by mouth daily. Active cyclobenzaprine (FLEXERIL) 10 MG tablet Take 1 Tab by mouth two times daily as needed for Muscle Spasms. 20 Tab 0 01/05/2016 Active HYDROcodone-acetaminop hen (NORCO) 5-325 MG tablet Take 1-2 Tabs by mouth every 6 hours as needed for Pain. 20 Tab 0 01/05/2016 Active Active Problems No known active problems Social History Tobacco Use Types Packs/Day Years Used Date Smoking Tobacco: Never Sex and Gender Information Value Date Recorded Sex Assigned at Not on file Gender Identity Not on file Sexual Orientation Not on file Last Filed Vital Signs [...] - - Body Mass Index - - Plan of Treatment Health Maintenance Due Date Last Done Comments Colon Cancer Screening Plan Due 1977 Hep C Screening (Preventive Services) 1977 HIV Screening (Preventive Services) 1993 Adult Preventive Visit 1995 DTaP/Tdap/Td (1 - Tdap) 02/05/1996 HepB (1) 02/05/1996 Cholesterol 02/05/2012 COVID-19 Vaccine (1 - 2022-2 4 season) 2022 Influenza (#1) 2022 Zoster/Shingles (1 of 2) 2027 HepA Aged Out No longer eligi ble based on patient's age to complete this topic Hib Aged Out No longer eligi ble based on patient's age to complete this topic IPV (Polio) Aged Out No longer eligi ble based on patient's age to complete this topic MCV4 Aged Out No longer eligi ble based on patient's age to complete this topic Pneumococcal Aged Out No longer eligi ble based on patient's age to complete this topic
--- OUTSIDE RECORDS SUMMARY | 2023-07-19 08:11 | XMS_ITS | Encounter Summary ---
Author Name Unknown Organization [facility] er Address [address] [place] [address] Care Team Providers Care Corporate Executive Chef Name Role Phone Evens Medrano MD Primary Care Provider Reason for Visit * Reason Comments Med Refill Encounter Details Date Type Department Care Team (Late st Contact Info) Description 09/22/2020 Refill [place] [address] [address] Bethany Rahman MD 1705 [facility] [address] [place] [address] Mixed hyperlipidemia; Essential hypertension Social History Tobacco Use Types Packs/Day Years Used Date Smoking Tobacco: Former Smokeless Tobacco: Never Alcohol Use Standard Drinks/Week Comments Yes 0 (1 standard drink = 0.6 oz pur e alcohol) 1-2 times per month PHQ-2 Answer Date Recorded PHQ-9 Total Score 0 09/19/2020 Sex and Gender Information Value Date Recorded Sex Assigned at Male 05/12/2018 3:05 PM DRUM HANDLER Gender Identity Male 05/12/2018 3:05 PM DRUM HANDLER Sexual Orientation Straight 05/12/2018 3: 05 PM DRUM HANDLER documented as of this encounter Miscellaneous Notes * Telephone Encounter - Patricia Guerrero LPN - [...] Time COVID-19 Rule Out 04/12/2021 04/12/2021 04/12/2021 10:41 PM DRUM HANDLER documented as of this encounter Care Teams Corporate Executive Chef Relationship Specialty Start Date End Date Evens Medrano MD [address] [place] [address] PCP - General 01/10/23 documented as of this encounter
--- OUTSIDE RECORDS SUMMARY | 2023-07-19 08:11 | XMS_ITS | Clinical Summary ---
Author Name Unknown Organization [facility] Address [place], [place] [address] Care Team Providers Care Clinical Psychiatrist Name Role Phone Derrick Rahman Primary Care Provider [phone] Allergies Active Allergy Reactions Criticality Noted Date Comments Epinephrine Anxiety,Tachycardia 12/31/2018 Methylprednisolone *Unknown,Dizziness 9 Tramadol Dizziness 06/19/2006 Medications Medication Sig Dispensed Refills Start Date End Date Status DULoxetine (CYMBALTA) 60 mg Delayed-release capsuleIndications: Anxiety Take 1 capsule by mouth at bedtime. 1 capsule 09/30/2017 Active lisinopril (PRINIVIL; ZESTRIL) 20 mg tablet TK 0.5 T PO D FOR THE FIRST 10 DAYS THEN TK 1 T PO D THEREAFTER FOR BLOOD PRESSURE 5 12/22/2018 Active atorvastatin (LIPITOR) 20 mg tablet Take 1 tablet by mouth once daily. 01/23/2019 Active oxyCODONE-acetamino phen, 7.5-325 mg, (Percocet) per tabletIndications:L umbar facet joint syndrome Take 1 Tablet by mouth every 4 hours if needed for Pain. 36 Tablet 05/09/2022 Active celecoxib (CELEBREX) 200 mg capsuleIndications: Lumbar facet joint syndrome Take 1 Capsule (200 mg) by mouth two times daily with meals. 60 Capsule 2 12/13/2022 Active tiZANidine (ZANAFLEX) 4 mg tabletIndications:L umbar facet joint syndrome,DDD (degenerative disc disease), lumbar Take 1 Tablet (4 mg) by mouth every 8 hours if needed for Muscle Spasm. 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 Resolved Problems Problem Noted Date Diagnosed Date Resolved Date Disorders of sacrum 06/28/2011 11/20/19 13 Biceps tendon tear 05/25/2009 0 Lumbago 01/16/2006 11/19/2012 Anxiety state, unspecified 01/16/2006 0 07/16/2011 Encounters Date Type Department Care Team Description 05/29/2023 Telephone [facility] [address] [place] [address] Dimitris Braden MD Questions (Disability paperwork?) from Last 3 Months Immunizations Name Administration [...] Packs/Day Years Used Date Smoking Tobacco: Former Cigarettes 2 2 0 03/25/1990 - 03/25/1992 Smokeless Tobacco: Never Tobacco Cessation:Counseling Given: Yes Alcohol Use Standard Drinks/Week Comments Yes 0 (1 standard drink = 0.6 oz pur e alcohol) occasionally, 1-2 per weekend PHQ-2 Answer Date Recorded PHQ-2 TOTAL SCORE 0 10/19/2020 Social Connections Answer Date Recorded Frequency of Communication with Friends and Fami ly Not on file 03/25/2021 Financial Resource Strain Answer Date R ecorded Difficulty of Paying Living Expenses Not on file 03/25/2021 Difficulty of Paying Living Expenses Not on file 03/25/2021 Sex and Gender Information Value Date Recorded Sex Assigned at Not on file Gender Identity Not on file Sexual Orientation Not on file Obstetrics History Last Filed Vital Signs Vital Sign Reading Time Taken Comments Blood Pressure 117/71 02/08/2023 11:22 AM SALON/SPA MANAGER Pulse 78 02/08/2023 11:22 AM SALON/SPA MANAGER Temperature 36.7 ??C (98 ??F) 02/08/2023 11:22 AM SALON/SPA MANAGER Respiratory Rate 18 08/03/2021 4:04 PM CDT Oxygen Saturation 98% 02/08/2023 11:22 AM SALON/SPA MANAGER Inhaled Oxygen Concentration - - Weight 108 kg (238 lb) 09/10/2022 1:01 PM CDT Height 175.3 cm (5' 9) 05/18/2019 6:25 AM SALON/SPA MANAGER Body Mass Index 35.15 05/18/2019 6:25 AM SALON/SPA MANAGER Plan of Treatment Health Maintenance Due Date Last Done Comments BMI (ht and wt on same day) for age 18+ 01/01/2020 12/31/2018, 04/21/2018, 10/17/2017, Additional history exists Tetanus booster 07/15/2021 07/16/2011 Depression screening for age 12+ 10/19/2021 10/19/2020, 09/30/2017 Colonoscopy through age 75 2022 Lipids for age 45-75 2022 COVID-19 vaccine series () 11/23/2022 Influenza for age 9-49 11/24/2023 HIV for age 15-65 Completed 11/21/2009 Hepatitis C screening for age 18-79 Completed 11/21/2009 Tdap Completed 07/16/2011 Pneumococcal series for age 6-64 Aged Out No longer eligible based on patient's age to complete this topic Medical Devices Implanted Type Area Truck Driver Supervisor Device Identifier Shelf Expiration Date Model / Serial / Lot 2.5mm Headed Screw Implanted:Qty: 2 on 05/18/2019 by Justin Gonzales DPM at [facility] Right: [employer] [id number] / / Procedures Procedure Name Priority Date/Time Associated Diagnosis Comments ANTI HIV 1/2 Routine 11/21/2009 5:18 PM CDT Screen for STD (sexually transmitted disease) ANTI HCV Routine 11/21/2009 5:18 PM CDT Screen for STD (sexually transmitted disease) from Last 3 Months or Most Recently Relevant to Health Maintenance Results * ANTI HCV (11/21/2009 5:18 PM CDT) ANTI HCV Non-reacti ve [facility] Blood specimen (specimen) BLOOD SPECIMEN / Unknown 11/21/2009 5:18 PM CDT 11/21/2009 5:06 PM CDT Eligio Hernandez DO SEND OUTS [facility] INTERNAL ZIP [address] [address] * ANTI HIV 1/2 (11/21/2009 5:18 PM CDT) ANTI HIV 1/2 Non-reacti ve [facility] Blood specimen (specimen) BLOOD SPECIMEN / Unknown 11/21/2009 5:18 PM CDT 11/21/2009 5:06 PM CDT Eligio Hernandez DO [facility] OUT[facility] INTERNAL ZIP [address] [address] from Last 3 Months or Most Recently Relevant to Health Maintenance Advance Directives * Full Code (Latest Code Status on File) Date Activated Date Inactivated Comments 05/18/2019 10:05 AM 05/18/2019 2:05 PM Question Answer Comments Code Status Discussion: Discussed * Full Code Date Activated Date Inactivated Comments 05/18/2019 6:20 AM 05/18/2019 10:05 AM Question Answer Comments Code Status Discussion: Discussed Care Teams Clinical Psychiatrist Relationship Specialty Start Date End Date Derrick Rahman [address] [place] [address] PCP - General Family Practice 05/11/19
--- OUTSIDE RECORDS SUMMARY | 2023-07-19 08:11 | XMS_ITS | Encounter Summary ---
Author Name Unknown Organization [facility] er Address [address] [place] [address] Care Team Providers Care Sharemilker Name Role Phone Evens Medrano MD Primary Care Provider Reason for Visit * Reason Comments Med Refill Encounter Details Date Type Department Care Team (Late st Contact Info) Description 04/20/2023 Refill [place] [address] [address] Evens Medrano MD 1705 [facility] 20 [place] [address] Depression, unspecified depression type; Mixed hyperlipidemia Social History Tobacco Use Types Packs/Day Years [...] often do you attend chur ch or bahai services? More than 4 times per year 02/01/2023 Do you belong to any clubs o r organizations such as spiritism groups, unions, fraternal or athletic groups, or [...] Date Recorded PHQ-9 Total Score 9 02/01/2023 [facility] - Occupational Stress Questionnaire Answer Date [...] place to sleep or slept in a longterm (including now)? No 02/01/2023 Sex and Gender Information Value Date Recorded Sex Assigned at Male 05/12/2018 3:05 PM ECHOCARDIOGRAPHY TECHNOLOGIST Gender Identity Male 05/12/2018 3:05 PM ECHOCARDIOGRAPHY TECHNOLOGIST Sexual Orientation Straight 05/12/2018 3: 05 PM ECHOCARDIOGRAPHY TECHNOLOGIST documented as of this encounter Miscellaneous Notes * Telephone Encounter - Sandrita Griffin, AZUCENA - 04/24/2023 6:02 AM CST Upcoming appointment with provider: Visit date not found Former pt of Dr. Rahman Last visit in provider department: 02/01/2023 Last visit requested medication was discussed: 02/01/2023 Last Rx: DULOXETINE DR 60MG CAPSULES, #90 x 3 refills 04/21/2022 ATORVASTATIN 20MG TABLETS, #90 x 3 refills 04/21/2022 Requested Prescriptions Pending Prescriptions Disp Refills DULoxetine (CYMBALTA) [address] capsule [Pharmacy Med Name: DULOXETINE DR 60MG CAPSULES] 90 capsule 3 Sig: TAKE 1 CAPSULE BY MOUTH EVERY DAY FOR ANXIETY OR DEPRESSION OR PAIN atorvastatin (LIPITOR) 20 MG tablet [Pharmacy Med Name: ATORVASTATIN 20MG TABLETS] 90 tablet 3 Sig: TAKE 1 TABLET BY MOUTH EVERY DAY FOR CHOLESTEROL Most Recent 04/25/21 - 04/24/23 PHQ-9 Total Score 9 02/01/23 15:48 Most Recent 04/25/21 - 04/24/23 [id number] Total Score 9 02/01/23 15:49 Labs: No pending lab found. Component Latest Ref Rng 04/20/2022 Fasting? Yes Cholesterol 0 - 199 mg/dL 158 Triglycerides 0 - 149 mg/dL 72 HDL 40 - 250 mg/dL 37 (L) LDL Calculated 0 - 99 mg/dL 107 (H) Legend: (L) Low (H) High Vitals: BP Readings from Last 2 Encounters: 02/01/23 124/80 05/11/22 123/76 CARDIOGRAPHY TECHNOLOGIST documented in this encounter Plan of Treatment Not on file documented as of this encounter Visit Diagnoses Diagnosis Depression, unspecified depression type Mixed hyperlipidemia documented in this encounter Care Teams Sharemilker Relationship Specialty Start Date End Date Evens Medrano MD [address] [place] [address] PCP - General 01/10/23 documented as of this encounter
--- OUTSIDE RECORDS SUMMARY | 2023-07-19 08:12 | XMS_ITS | Encounter Summary ---
Author Name Unknown Organization [facility] er Address [address] [place] [address] Care Team Providers Care Chemical Process Operator Name Role Phone Evens Medrano MD Primary Care Provider Reason for Visit * Reason Comments Med Refill Encounter Details Date Type Department Care Team (Late st Contact Info) Description 03/19/2018 Refill [place] [address] [address] Bethany Rahman MD 1705 [facility] 20 [place] [address] Social History Tobacco Use Types Packs/Day Years Used Date Smoking Tobacco: Former Smokeless Tobacco: Never Alcohol Use Standard Drinks/Week Comments Yes 0 (1 standard drink = 0.6 oz pur e alcohol) Sex and Gender Information Value Date Recorded Sex Assigned at Male 05/12/2018 3:05 PM WINDOW FRAMER Gender Identity Male 05/12/2018 3:05 PM WINDOW FRAMER Sexual Orientation Straight 05/12/2018 3: 05 PM WINDOW FRAMER documented as of this encounter Miscellaneous Notes * Telephone Encounter - Luciana Munoz LPN - 03/24/2018 2:59 PM CST Unable to let you know because we are unable to call long distance. OW FRAMER * Telephone Encounter - Bethany Rahman MD - 03/24/2018 2:50 PM CST I am assuming that Fabiano has enough meds to get through till his appointment on Saturday. If not letme know. OW FRAMER * Telephone Encounter - Paula Bañuelos - 03/24/2018 12:31 PM CST Patient scheduled appointment for Saturday03/28/18 OW FRAMER * Telephone Encounter - Radha Killian LPN - 03/24/2018 10:58 AM WINDOW FRAMER Last Rx Cymbalta (duloxetine) 30 mg delayed release capsule, oral, See Instrc, See Instrc Last Prescribed: 05/10/2017 Prescriber: Derrick Rahman Pharmacy: [facility] Quantity: 270 Refills: 1 Reason: anxiety/depression/pain Instructions: Take one in the AM and two in the PM Chronic: Y Med/dx has not been reviewed in the last year No upcoming appointment scheduled OW FRAMER documented in this encounter Plan of Treatment Not on file documented as of this encounter Visit Diagnoses Not on filedocumented in this encounter Additional Health Concerns Infection Onset Date Last Indicated Resolved Time COVID-19 Rule Out 04/12/2021 04/12/2021 04/12/2021 10:41 PM WINDOW FRAMER documented as of this encounter Care Teams Chemical Process Operator Relationship Specialty Start Date End Date Evens Medrano MD [address] [place] [address] PCP - General 01/10/23 documented as of this encounter
--- OUTSIDE RECORDS SUMMARY | 2023-07-19 08:12 | XMS_ITS | Encounter Summary ---
Author Name Unknown Organization [facility] er Address [address] [place] [address] Care Team Providers Care Cement Loader Name Role Phone Evens Medrano MD Primary Care Provider [phone] Encounter Details Date Type Department Care Team (Late st Contact Info) Description 03/22/2020 Telephone [facility] Medical/Surgical [address] [place] [address] [place] [address] [place] [phone] Social History Tobacco Use Types Packs/Day Years Used Date Smoking Tobacco: Former Smokeless Tobacco: Never Alcohol Use Standard Drinks/Week Comments Yes 0 (1 standard drink = 0.6 oz pur e alcohol) 1-2 times per month PHQ-2 Answer Date Recorded PHQ-2 Score 0 05/13/2019 Sex and Gender Information Value Date Recorded Sex Assigned at Male 05/12/2018 3:05 PM DATA ANALYST REPORT WRITER Gender Identity Male 05/12/2018 3:05 PM DATA ANALYST REPORT WRITER Sexual Orientation Straight 05/12/2018 3: 05 PM DATA ANALYST REPORT WRITER documented as of this encounter Plan of Treatment Not on file documented as of this encounter Visit Diagnoses Not on filedocumented in this encounter Additional Health Concerns Infection Onset Date Last Indicated Resolved Time COVID-19 Rule Out 04/12/2021 04/12/2021 04/12/2021 10:41 PM DATA ANALYST REPORT WRITER documented as of this encounter Care Teams Cement Loader Relationship Specialty Start Date End Date Evens Medrano MD [address] [place] [address] PCP - General 01/10/23 documented as of this encounter
--- OUTSIDE RECORDS SUMMARY | 2023-07-19 08:12 | XMS_ITS | Encounter Summary ---
Author Name Unknown Organization [facility] er Address [address] [place] [address] Care Team Providers Care Telephone Operator Receptionist Name Role Phone Evens Medrano MD Primary Care Provider Reason for Visit * Reason Comments Med Refill Encounter Details Date Type Department Care Team (Late st Contact Info) Description 03/26/2020 Refill [place] [address] [address] Bethany Rahman MD 1705 [facility] 20 [place] [address] Depression, unspecified depression type Social History Tobacco Use Types Packs/Day Years Used Date Smoking Tobacco: Former Smokeless Tobacco: Never Alcohol Use Standard Drinks/Week Comments Yes 0 (1 standard drink = 0.6 oz pur e alcohol) 1-2 times per month PHQ-2 Answer Date Recorded PHQ-2 Score 0 05/13/2019 Sex and Gender Information Value Date Recorded Sex Assigned at Male 05/12/2018 3:05 PM HARNESS INSTALLER Gender Identity Male 05/12/2018 3:05 PM HARNESS INSTALLER Sexual Orientation Straight 05/12/2018 3: 05 PM HARNESS INSTALLER documented as of this encounter Plan of Treatment Not on file documented as of this encounter Visit Diagnoses Diagnosis Depression, unspecified depression type documented in this encounter Additional Health Concerns Infection Onset Date Last Indicated Resolved Time COVID-19 Rule Out 04/12/2021 04/12/2021 04/12/2021 10:41 PM HARNESS INSTALLER documented as of this encounter Care Teams Telephone Operator Receptionist Relationship Specialty Start Date End Date Evens Medrano MD [address] [place] [address] PCP - General 01/10/23 documented as of this encounter
--- OUTSIDE RECORDS SUMMARY | 2023-07-19 08:12 | XMS_ITS | Encounter Summary ---
Author Name Unknown Organization [facility] er Address [address] [place] [address] Care Team Providers Care Stack Matcher Name Role Phone Evens Medrano MD Primary Care Provider [phone] Encounter Details Date Type Department Care Team (Late st Contact Info) Description 03/14/2020 Refill [facility] [address] [place] [address] OrenScott bobo MD Hypertrophy of tonsils alone (Primary Dx) Social History Tobacco Use Types Packs/Day Years Used Date Smoking Tobacco: Former Smokeless Tobacco: Never Alcohol Use Standard Drinks/Week Comments Yes 0 (1 standard drink = 0.6 oz pur e alcohol) 1-2 times per month PHQ-2 Answer Date Recorded PHQ-2 Score 0 05/13/2019 Sex and Gender Information Value Date Recorded Sex Assigned at Male 05/12/2018 3:05 PM AIRCRAFT POWER PLANT ASSEMBLER Gender Identity Male 05/12/2018 3:05 PM AIRCRAFT POWER PLANT ASSEMBLER Sexual Orientation Straight 05/12/2018 3: 05 PM AIRCRAFT POWER PLANT ASSEMBLER documented as of this encounter Miscellaneous Notes * Telephone Encounter - Evangelina Flower RN - 03/14/2020 2:11 PM CST Pt notified RAFT POWER PLANT ASSEMBLER * Telephone Encounter - Evangelina Flower RN - 03/14/2020 2:03 PM CST Lmtc RAFT POWER PLANT ASSEMBLER * Telephone Encounter - Evangelina Flower RN - 03/14/2020 11:00 AM CST DOS: 03/21/20 Tosillectomy. Dexamethasone script already at pharmacy, pain med script and needs to be resent. RAFT POWER PLANT ASSEMBLER documented in this encounter Plan of Treatment Not on file documented as of this encounter Visit Diagnoses Diagnosis Hypertrophy of tonsils alone- Primary documented in this encounter Additional Health Concerns Infection Onset Date Last Indicated Resolved Time COVID-19 Rule Out 04/12/2021 04/12/2021 04/12/2021 10:41 PM AIRCRAFT POWER PLANT ASSEMBLER documented as of this encounter Care Teams Stack Matcher Relationship Specialty Start Date End Date Evens Medrano MD [address] [place] [address] PCP - General 01/10/23 documented as of this encounter
--- NOTE | 2023-07-19 08:15 | MR_ITS ---
[facility] [address] [facility] [address] Phone:?[phone] Fax:?[phone] Referring Physician Information: Shyanne Kenny [address] [facility] [address] Phone:?[phone] Fax:?[phone] Patient:Jono Schwartz D.O.B:?1975 Sex:?Male Phone:?[phone] [facility] MRN:?[id number] Exam Date:?07/19/2023 EXAM: MRI of the RIGHT SHOULDER, without contrast CLINICAL: Right shoulder pain. Evaluate for labral tear. COMPARISONS: MRI 04/24/2019. X-rays 07/09/2023. TECHNICAL: Multiplanar multisequence MRI of the right shoulder was obtained. SEDATION: None. CONTRAST: None. FINDINGS: Rotator cuff: Supraspinatus/Infraspinatus: Tendinosis of the distal supraspinatus and infraspinatus tendons similar to prior exam, with mild thin linear partial interstitial tearing of the distal infraspinatus tendon which is new compared to prior exam. No significant fatty atrophy of the muscle bellies. Teres minor: There is fatty atrophy of the muscle similar to prior exam. No significant tendinosis or tendon tear. Subscapularis: Mild partial interstitial tearing of the distal tendon is increased compared to prior examination. Mild to moderate thickening/tendinosis of the tendon. No significant fatty atrophy of the muscle belly. Bursae: Subacromial-subdeltoid: Mild bursal fluid. Subcoracoid: No significant bursal fluid. Coracoacromial arch: Acromion morphology: Type II. No os acromiale. Acromiohumeral space: Within normal limits. Coracohumeral space: Within normal limits. Biceps tendon, long head: Mild tendinosis of the intra-articular tendon. No significant tendon tear or displacement. Glenohumeral joint: Physiologic volume of joint fluid. Articular cartilage: No significant chondral loss. Capsule: No convincing evidence of capsular thickening or injury. Labrum: Tearing of the superior labrum with small adjacent paralabral cyst formation extending towards the spinoglenoid notch is similar to prior exam as seen on coronal series 4 images 10-12. No additional discrete labral tear identified. Bones: No suspicious marrow signal alteration, fracture or dislocation. Acromioclavicular joint: Moderate changes of arthrosis with associated reactive marrow edema about the articulation, increased compared to prior exam. No AC joint widening. IMPRESSION: 1. Mild thin linear partial interstitial tearing of the distal infraspinatus tendon and mild partial interstitial tearing of the subscapularis tendon are new compared to prior exam. No evidence of full-thickness or retracted rotator cuff tendon tear. 2. Mild subacromial/subdeltoid bursitis. 3. Mild tendinosis of the intra-articular long head biceps tendon. 4. Mild tearing of the superior labrum with small adjacent paralabral cyst formation similar to prior exam. 5. Moderate AC joint arthrosis, increased compared to prior exam. [facility] Electronically signed on 07/19/2023 12:29:00 PM by Jared Hill D.O.
== END 2023-07-19 08:07 | disposition home or self-care (01) ==
LOC: MRI 08:08
PROVIDERS: PCP Nurse Practitioner Family; Visit Provider Nurse Practitioner Family
DX: M25.511 Pain in right shoulder (principal); S46.811A Strain of other muscles, fascia and tendons at shoulder and upper arm level, right arm, initial encounter; M75.51 Bursitis of right shoulder; S43.491A Other sprain of right shoulder joint, initial encounter; M19.011 Primary osteoarthritis, right shoulder
CPT/HCPCS: 73221